=== PATIENT | female | born 1945 | race Caucasian/White ===

== ENCOUNTER → 2023-05-25 15:51 | Outpatient (REF) | payer MEDICARE, SELFPAY | LOC: RCS 15:51 | PROVIDERS: ATTENDING PHYSICIAN Internal Medicine Cardiovascular Disease; FAMILY PHYSICIAN Internal Medicine Geriatric Medicine; REFERRING PHYSICIAN Orthopaedic Surgery | DX: R60.0 Localized edema (principal) | CPT/HCPCS: 93306 ==

== ENCOUNTER 2023-06-02 06:22 | Inpatient (IN) | payer MEDICARE, SELFPAY ==
--- NOTE | 2023-05-07 10:55 | CM ---
Patient is scheduled for an elective R THR on 06/02/23. Spoke with patient prior to surgery via telephone. Patient had a L TKR (2020), L THR (2019) and a R TKR (2013), all at . Reintroduced role of Orthopedic Navigator. Patient reports that she
lives with her in a multi story home. There are two steps to enter and 17 ([id number]-19) steps to the second floor (right ascending rail). There is a powder room on the entry specialists. She currently functions independently. She has a rolling
walker, raised toilet seat with rails, hip kit, firm cushion and cane at home. She has had services through [facility] in the past. PCP is Dr. Galeana.
Discussed orthopedic program and post surgical plans. Reviewed anticipated length of stay and that goal is for her to return home at discharge. Also reviewed outpatient PT. Patient is in agreement with tentative plan and will go directly to
outpatient PT at [facility]. She will have support from her when she goes home.
Patient will complete online education.
Plan: Orthopedic Navigator will remain available to assist with the care of patient and will reassess discharge needs after surgery.
[2023-05-14 12:56] VITALS: BMI 30.1
[2023-05-14 14:29] LABS: Hematocrit 40.3 % (37.0-47.0); Hemoglobin 13.8 g/dL (12.0-16.0); Mean Corp Hgb Conc. 34.2 g/dL (33.0-37.0); Mean Corpuscular Hgb 30.7 pg (27.0-31.0); Mean Corpuscular Volume 89.8 fL (81.0-99.0); Mean Platelet Volume 9.5 fL (7.4-10.4); Platelet Count 334 10^3/uL (130-400); Red Blood Cell Count 4.49 10^6/uL (4.20-5.40); White Blood Cell Count 8.9 10^3/uL (4.8-10.8)
[2023-05-14 14:44] LABS: ALT (SGPT) 22 U/L (0-35); AST (SGOT) 26 U/L (14-36); Albumin 4.3 g/dl (3.5-5.0); Alkaline Phosphatase 103 U/L (38-126); Blood Urea Nitrogen 20 mg/dl (7-17); Calcium 9.1 mg/dl (8.4-10.2); Carbon Dioxide 26 mmol/L (22-30); Chloride 104 mmol/L (98-107); Estimated Creatinine Clearance 64 ml/min; Glucose 91 mg/dl (70-99); Sodium 135 mmol/L (135-145); Total Bilirubin 0.7 mg/dl (0.2-1.3); Total Protein 6.7 g/dl (6.3-8.2); eGFR > 60.00
[2023-05-14 15:43] VITALS: BMI 30.1
[2023-05-15 08:44] LABS: Glycohemoglobin (HgbA1c) 5.3 % (4.0-5.6)
[2023-06-02] VITALS (24 sets, daily range): BP systolic 115–150; BP diastolic 49–94; PULSE 62–63; O2SAT 98–99; BMI 30.1
[2023-06-02] MEDS: NORMOSOL-R 1000 IV ×2 (08:02→13:28)
[2023-06-02] MEDS: TYLENOL 650 MG PO ×4 (08:02→20:40)
[2023-06-02] MEDS: CELEBREX 200 MG PO (08:02)
[2023-06-02] MEDS: TORADOL 10 MG IV ×2 (12:10→23:47)
[2023-06-02] MEDS: DILAUDID 0.25 MG IV (12:43)
[2023-06-02] MEDS: ROXICODONE 5 MG PO ×2 (13:31→20:48)
--- NOTE | 2023-06-02 14:09 | PTCARENOTE ---
Patient received from PACU in bed; IVF infusing; Surgical site assessed; VSS; Patient oriented to room and unit; Bed in lowest position, wheels locked; Call louise within reach; Assessment ongoing; Safety maintained
[2023-06-02] MEDS: ZOLOFT 50 MG PO ×2 (15:19→20:40)
[2023-06-02] MEDS: ANCEF 5 IV ×2 (15:21→23:47)
[2023-06-02] MEDS: ASPIRIN 325 MG PO (17:18)
[2023-06-02] MEDS: SYMBICORT 80/4.5 MCG INHALER 2 PUFF INH (20:00)
[2023-06-02] MEDS: BACTROBAN 2% OINTMENT 1 APPLIC NASAL (20:39)
[2023-06-02] MEDS: COLACE 100 MG PO (20:39)
[2023-06-02] MEDS: SENOKOT 17.1999999999999993 MG PO (20:39)
[2023-06-02] MEDS: RYTHMOL 150 MG PO (20:40)
[2023-06-02] MEDS: NEURONTIN 300 MG PO (21:20)
[2023-06-02] MEDS: PEPCID 20 MG PO (21:20)
[2023-06-02] MEDS: DESYREL 50 MG PO (23:47)
[2023-06-03 03:30] VITALS: BP 121/56
[2023-06-03] MEDS: TYLENOL PO ×2 (04:00)
[2023-06-03 07:09] VITALS: BP 154/75
[2023-06-03] MEDS: SYMBICORT 80/4.5 MCG INHALER 2 PUFF INH (08:21)
--- NOTE | 2023-06-03 09:00 | CM ---
Reviewed chart and held rounds with PT, OT and nursing. Patient admitted as planned for elective R THR. Met with patient at bedside. Confirmed information previously obtained for assessment. Also discussed discharge plans. The plan is for patient to
return home at discharge. She will have support from her when she goes home. Patient will go directly to outpatient PT and will come to . She has an appointment scheduled for Wednesday, 06/03.
Patient has all needed DME at home.
She will use [facility] pharmacy for discharge prescriptions.
[2023-06-03] MEDS: ASPIRIN 325 MG PO (09:02)
[2023-06-03] MEDS: TYLENOL 650 MG PO ×2 (09:02→11:48)
[2023-06-03] MEDS: SENOKOT 17.1999999999999993 MG PO (09:02)
[2023-06-03] MEDS: ROXICODONE 10 MG PO (09:02)
[2023-06-03] MEDS: COLACE 100 MG PO (09:02)
[2023-06-03] MEDS: ZOLOFT 50 MG PO (09:02)
[2023-06-03] MEDS: DELTASONE 40 MG PO (09:02)
[2023-06-03] MEDS: RYTHMOL 150 MG PO (09:03)
[2023-06-03] MEDS: CELEBREX 200 MG PO (09:03)
[2023-06-03] MEDS: BACTROBAN 2% OINTMENT 1 APPLIC NASAL (09:03)
[2023-06-03 10:10] VITALS: BP 130/52; PULSE 56; O2SAT 98
--- NOTE | 2023-06-03 10:15 | W.PN.ORTHO ---
Today's Communication / Plan
-
d/c
Assessment
.
Distal Motor Intact: Yes
Dressing:
Clean, dry and intact.
Assessment:
Hx ESBL-will change OP ppx abx to Keflex due to ESBL hx coverage-spoke to iD pharmcist
Plan
.
Surgery / Date: R VIKTORIYA Lewis 06/02/23
DVT Prophylaxis: Aspirin
Activity:
Out of bed.
PT/OT
Discharge Plan: Home w/ Outpatient PT
Subjective
.
.:
Patient resting comfortably.
Vital Signs and Labs
.
Vital Signs and Labs:
Lab Results
05/14/23 13:06
05/14/23 13:06
Temp Pulse Resp BP Pulse Ox
97.3 F 82 16 154/75 99
06/03/23 07:09 06/03/23 08:45 06/03/23 08:45 06/03/23 09:01 06/03/23 08:45
Non-invasive Hgb result: 13.6
Physical Exam
-
HEENT: No pallor, cyanosis, or jaundice. Throat clear.
NECK: Supple. No JVD.
RESPIRATORY: Lungs clear to auscultation.
CVS: S1, S2 normal. RRR.� No murmur, rub or gallop.
ABDOMEN: Soft, non-tender. No distension. BS+/normal.
EXTREMITIES: strength equal, no calf pain with palpation
FIRE CHIEF'S AIDE: AOx3. No focal deficits. cement breaker grossly intact
--- NOTE | 2023-06-03 10:24 | W.DS.TRANS ---
DC Summary - Director Dermatology
-
Discharge Instructions:
Sleep Apnea Risk Low
Discharge Diagnosis/Procedures R VIKTORIYA Dr. Lewis 06/02/23
Diet As tolerated
Activity With Walker
Driving Restrictions No driving
Bathing Restrictions OK to Shower
Other Services PT
Instructions:
Stand-Alone Forms: Total Hip/Knee Replacement D/C
Changes to Home Medications: Yes
Discharge Medications:
DC Medications w/original date entered in [employer]
propafenone 150 mg tablet 150 mg PO BID Arrhythmia 02/20/20
sertraline 50 mg tablet 50 mg PO BID Mental Health/Anxiety 02/20/20
albuterol sulfate 90 mcg/actuation aerosol inhaler (ProAir HFA) 1 inh inhalation PRN PRN WHEEZING 05/07/22
cranberry extract 200 mg capsule (Ellura) 200 mg PO DAILY Supplement 05/07/22
fluticasone furoate 100 mcg-vilanterol 25 mcg/dose inhalation powder (Breo Ellipta) 1 inh inhalation DAILY Lung/Breathing Issues 05/07/22
midodrine 2.5 mg tablet 2.5 mg PO BID Blood Pressure 05/07/22
trazodone 50 mg tablet 50 - 100 mg PO HS sleep 05/07/22
hydrochlorothiazide 50 mg tablet 50 mg PO HSPRN PRN SWELLING 06/03/22
Medical Cannibas Gummy 0.5 - 1 gummy PO PRN PRN pain 05/11/23
lifitegrast 5 % eye drops in a dropperette (Xiidra) 1 drp BOTH EYES BID Eye Condition 05/11/23
vibegron 75 mg tablet (Gemtesa) 75 mg PO BID Urinary Issue 05/11/23
mupirocin 2 % topical ointment 1 applic topical BID infection prevention #1 tube 05/14/23
Saccharomyces boulardii 250 mg capsule (Florastor) 250 mg PO BID #1 cap 06/03/23
acetaminophen 325 mg capsule (Tylenol) 650 mg PO QID #2 caps 06/03/23
aspirin 325 mg tablet 325 mg PO DAILY blood clot prevention #1 tab 06/03/23
cephalexin 500 mg capsule 500 mg PO QID infection prevention #20 caps 06/03/23
dexamethasone 4 mg tablet 4 mg PO BID inflammation #6 tabs 06/03/23
docusate sodium 100 mg capsule (Colace) 100 mg PO BID stool softner #1 cap 06/03/23
gabapentin 300 mg capsule 300 mg PO HS sleep/pain #10 caps 06/03/23
magnesium hydroxide 400 mg/5 mL oral suspension (Milk of Magnesia) 30 ml PO HS PRN Constipation #1 mL 06/03/23
oxycodone 5 mg tablet 5 - 10 mg PO Q6HPRN PRN 1 tab moderate-2 tabs severe pain #30 tabs 06/03/23
sennosides 8.6 mg tablet (Senokot) 17.2 mg PO BID laxative #2 tabs 06/03/23
Home Medication Changes
cephalexin 500 mg capsule 500 mg PO QID� infection prevention #20 caps 06/03/23�
dexamethasone 4 mg tablet 4 mg PO BID inflammation #6 tabs 06/03/23�
gabapentin 300 mg capsule 300 mg PO HS sleep/pain #10 caps 06/03/23�
oxycodone 5 mg tablet 5 - 10 mg PO Q6HPRN PRN 1 tab moderate-2 tabs severe pain #30 tabs 06/03/23�
Pending Results: No
[2023-06-03] MEDS: TORADOL 10 MG IV (11:48)
== END 2023-06-03 14:49 | disposition home or self-care (01) | DRG 470 ==
LOC: 2 SOUTH 06:22
PROVIDERS: ADMITTING PHYSICIAN Orthopaedic Surgery; FAMILY PHYSICIAN Internal Medicine Geriatric Medicine
PROC: 0SR903A Replacement of Right Hip Joint with Ceramic Synthetic Substitute, Uncemented, Open Approach (ICD-10-PCS; 2023-06-02)
DX: M16.11 Unilateral primary osteoarthritis, right hip (principal); Z87.891 Personal history of nicotine dependence; I48.0 Paroxysmal atrial fibrillation
CPT/HCPCS: 36415; 73502; 80053; 83036; 85027; 87070; 94640; 97110; 97116; 97161; 97162; 97166; 97530; 97535; C1713; C1776; J1335

== ENCOUNTER → 2023-06-14 13:47 | Outpatient (REF) | payer MEDICARE, SELFPAY | LOC: RAD 13:47 | PROVIDERS: ATTENDING PHYSICIAN Physician Assistant Medical; FAMILY PHYSICIAN Internal Medicine Geriatric Medicine | DX: M79.661 Pain in right lower leg (principal) | CPT/HCPCS: 93971 ==

== ENCOUNTER 2023-06-16 12:45 | Outpatient (RCR) | payer MEDICARE, SELFPAY | END 2023-06-18 07:33 | disposition home or self-care (01) | LOC: RPT 12:45 | PROVIDERS: ATTENDING PHYSICIAN Orthopaedic Surgery; FAMILY PHYSICIAN Internal Medicine Geriatric Medicine | DX: Z47.1 Aftercare following joint replacement surgery (principal); Z96.641 Presence of right artificial hip joint; R26.89 Other abnormalities of gait and mobility | CPT/HCPCS: 97110; 97116; 97161; 97530 ==

== ENCOUNTER → 2023-07-12 07:58 | Outpatient (REF) | payer MEDICARE, SELFPAY | LOC: WOUND 07:58 | PROVIDERS: ATTENDING PHYSICIAN Surgery; FAMILY PHYSICIAN Internal Medicine Geriatric Medicine | DX: T81.31XA Disruption of external operation (surgical) wound, not elsewhere classified, initial encounter (principal); Y83.8 Other surgical procedures as the cause of abnormal reaction of the patient, or of later complication, without mention of misadventure at the time of the procedure; S71.101A Unspecified open wound, right thigh, initial encounter; X58.XXXA Exposure to other specified factors, initial encounter; R60.0 Localized edema; I10 Essential (primary) hypertension; R26.9 Unspecified abnormalities of gait and mobility; R26.89 Other abnormalities of gait and mobility; J98.4 Other disorders of lung; M16.11 Unilateral primary osteoarthritis, right hip | CPT/HCPCS: 11042; 99203 ==

== ENCOUNTER 2023-07-13 21:44 | Emergency (ER) | payer MEDICARE, SELFPAY ==
[2023-07-13 21:47] VITALS: BP 157/64
[2023-07-13 22:07] LABS: % Basophils 0.3 % (0-2); % Eosinophils 1.3 % (0-6); % Immature Granulocytes 0.3 % (0-0.5); % Lymphocytes 17.1 % (20.5-51.1); % Monocytes 6.8 % (1.7-9.3); % Neutrophils 74.2 % (42.2-75.2); Absolute Eosinophils 0.1 10^3/uL (0-0.7); Absolute Lymphocytes 1.6 10^3/uL (1.2-3.4); Absolute Monocytes 0.6 10^3/uL (0.1-0.6); Absolute Neutrophils 6.7 10^3/uL (1.4-6.5); Hematocrit 29.7 % (37.0-47.0); Hemoglobin 10.2 g/dL (12.0-16.0); Mean Corp Hgb Conc. 34.3 g/dL (33.0-37.0); Mean Corpuscular Hgb 29.7 pg (27.0-31.0); Mean Corpuscular Volume 86.6 fL (81.0-99.0); Mean Platelet Volume 8.9 fL (7.4-10.4); Nucleated Red Blood Cells % 0 %; Platelet Count 296 10^3/uL (130-400); Red Blood Cell Count 3.43 10^6/uL (4.20-5.40); Red Cell Dist. Width 13.3 % (11.5-14.5); White Blood Cell Count 9.1 10^3/uL (4.8-10.8)
[2023-07-13 22:16] LABS: Lactic Acid 0.6 mmol/L (0.7-2.0)
[2023-07-13 22:21] LABS: COVID-19 Antigen Negative (Negative)
[2023-07-13 22:24] LABS: ALT (SGPT) 12 U/L (0-35); AST (SGOT) 20 U/L (14-36); Albumin 3.7 g/dl (3.5-5.0); Alkaline Phosphatase 116 U/L (38-126); Blood Urea Nitrogen 18 mg/dl (7-17); Calcium 8.8 mg/dl (8.4-10.2); Carbon Dioxide 22 mmol/L (22-30); Chloride 107 mmol/L (98-107); Glucose 101 mg/dl (70-99); Potassium 3.9 mmol/L (3.5-5.1); Sodium 133 mmol/L (135-145); Total Bilirubin 0.5 mg/dl (0.2-1.3); Total Protein 6.1 g/dl (6.3-8.2); eGFR > 60.00
--- NOTE | 2023-07-14 00:14 | ED.GENMED ---
Addendum entered and electronically signed by Torey Swann PA-C 07/16/23 07:09:
Urine culture demonstrates greater than 100,000 colony-forming units of gram-negative bacilli. Patient on cefdinir. Sensitivities pending.
Original Note:
History of Present Illness
General
Chief Complaint: Post Operative Problem(s)
Source: patient and spouse
Exam Limitations: none
Time Seen by Provider: 07/14/23 00:02
Travel History
Have you had any contact with someone who has COVID-19?: No
Do you have any symptoms of coronavirus? Fever > 100 degrees, chills, cough, shortness of breath, sore throat, loss of taste or smell, muscle aches, or headache?: No
History of Present Illness
History of Present Illness:
77-year-old female complaining of fever and chills starting today. Low-grade fever. Some chills earlier. Had hip replacement surgery 06/02/2023. Has had an open draining wound since then. Was packed by wound care yesterday. Seen by her
orthopedist last week. No increased pain to the wound and no pain with hip rotation or weightbearing. Has a slight cough. No shortness of breath no abdominal pain no urinary symptoms.
Past History
Past History
ED Past Medical History: Arrthythmia, Cancer, HTN and Hypercholesterolemia
ED Past Surgical History: Appendectomy (gastric bypass.), Orthopedic and Other
Review of Systems
Review of Systems
All Other Systems: Not applicable
Constitutional: Reports fever and chills
Respiratory: Denies trouble breathing
Cardiac: Denies chest pain
Phy Exam
Physical Exam
Physical Exam:
GENERAL: Alert and oriented in no apparent distress
EYE: Orbits normal.
NECK: Supple
CARDIAC: Regular rate and rhythm without any obvious murmurs.
LUNGS: Clear breath sounds,normal
ABDOMEN: Soft, without focal tenderness or distention
NEUROLOGICAL: Alert and oriented , grossly non-focal
SKIN: Warm and dry, 3 cm open wound to the right lateral hip that is currently packed. No surrounding erythema. No foul-smelling drainage.
MUSCULOSKELETAL: Mild bilateral lower extremity edema. No warmth no erythema. No pain with hip rotation.
PSYCH: Normal and appropriate interaction.
Course
Orders/Labs/Results
Orders:
Orders
07/13/23 21:50
Cardiac Monitoring- Treatment ONCE
IV Insert/Care/Rem.- Treatment PRN
O2 Therapy [RESP] Urgent
Titrate/Wean O2 to maintain O2 sat greater than (%): 93
Special Instructions: TO MAINTAIN CONTINUOUS O2 SATS > OR = 93%
Pulse Ox/cont/shift [RESP] Urgent
Quantity: 1
Special Instructions: CONTINUOUS
07/13/23 21:59
C-Reactive Protein Urgent
Comment: ADD ON
COVID-19 Antigen Urgent
Source: Nasal Swab
Complete Blood Count/With Diff Urgent
Comprehensive Metabolic Panel Urgent
Erythrocyte Sed Rate Urgent
Comment: ADD ON
Lactic Acid Q4H
Comment: ON ICE, CANCEL 2ND ORDER IF FIRST LACTIC ACID LEVEL <2
Blood Culture Q30M
FEDE Source: Blood/Venous
Specimen Description:
Comment: FROM 2 SEPARATE SITES
Influenza A+B Rapid Molecular Urgent
FEDE Source: Nasal Swab
Specimen Description:
07/13/23 22:30
Blood Culture Q30M
FEDE Source: Blood/Venous
Specimen Description:
Comment: FROM 2 SEPARATE SITES
07/14/23 00:06
Wound Culture [Wound/Abscess/Other Culture] Urgent
FEDE Source: Hip
Specimen Description: Right
Date Specimen was Collected: 07/14/23
Time Specimen was Collected: 00:05
07/14/23 00:11
Add On- LAB Urgent
Tests Added?: esr,crp
CXR2 [CR Chest - 2 Views ] Urgent
Comment:
Reason For Exam: cough chills
07/14/23 00:14
CT Lower Ext W/o Iv Cont Rt Urgent
Comment:
Reason For Exam: Hip surgery/open wound/infectious symptoms
07/14/23 02:19
Urinalysis Reflex To Culture Urgent
Date Specimen was Collected: 07/14/23
Time Specimen was Collected: 02:18
Urine Microscopic Reflex Cult Urgent
Urine Culture Urgent
FEDE Source: U
Specimen Description:
Date Specimen was Collected: 07/14/23
Time Specimen was Collected: 02:18
07/14/23 02:38
CefTRIAXone [Rocephin] 1,000 mg IV NOW STA
07/14/23 02:39
CT Abd/pel Without Iv Or Oral Urgent
Comment:
Reason For Exam: UTI. History of kidney stones
07/14/23 02:41
Oxycodone/Acetaminophen [Percocet 5/325] 1 tablet PO NOW STA
Abnormal Lab Results
07/13/23 07/14/23
21:59 02:19
RBC 3.43 L 10^6/uL
(4.20-5.40)
Hgb 10.2 L g/dL
(12.0-16.0)
Hct 29.7 L %
(37.0-47.0)
Absolute Neuts (auto) 6.7 H 10^3/uL
(1.4-6.5)
Lymphocytes % 17.1 L %
(20.5-51.1)
ESR 46 H mm/hour
(0-20)
Sodium 133 L mmol/L
(135-145)
BUN 18 H mg/dl
(7-17)
Glucose 101 H mg/dl
(70-99)
Lactic Acid 0.6 L mmol/L
(0.7-2.0)
C-Reactive Protein 56.20 H mg/L
(0.0-10.00)
Total Protein 6.1 L g/dl
(6.3-8.2)
Ur Occult Blood Reflex 2+ A
(Negative)
Urine Nitrite (Reflex) Positive A
(Negative)
Leukocyte Esterase Rfl 2+ A
(Negative)
Urine WBC (Reflex) >100 A /HPF
(0-5)
Urine Bacteria (Reflex) Many A
(Negative)
07/13/23 21:59
07/13/23 21:59
Vital Signs
Initial and Last Documented VS:
Initial Vital Signs
Temp Pulse Resp BP Pulse Ox
99.8 F 78 19 157/64 97
07/13/23 21:47 07/13/23 21:47 07/13/23 21:47 07/13/23 21:47 07/13/23 21:47
Last Documented Vital Signs
Temp Pulse Resp BP Pulse Ox
98.9 F 61 18 143/59 92
07/14/23 00:30 07/14/23 04:00 07/14/23 02:20 07/14/23 04:00 07/14/23 04:00
MDM/Problems Addressed
Differential Diagnosis Includes:
New onset of infectious symptoms. Slight cough. This may be related to the hip although the wound externally actually appears well. Some slight cough. Chest x-ray ordered. COVID-negative flu negative. Urinalysis pending.
*Radiology
Radiology exam reviewed: radiology read reviewed (Nonobstructive kidney stones. Some stranding and edema lateral hip)
*Pulse Oximetry
Patient hypoxic: no
*Critical Care Note
Total Time (30-74mins, 75-104mins- exclusive of procedures): Not Applicable
Data Reviewed
Review of Other/Old Records Reveals: Labs, Records, Radiology Studies, Operative Reports and Discharge Summary
Update Note
Update Note:
CT scan discussed with radiology. The wound does not appear to probe to the joint via the CT scan. Clinically the wound appears well. She has no unusual new hip pain. Her leg pain has been ongoing and stable. She does have a positive urine.
With her history of kidney stone we will do a CT scan to rule out obstruction. Repeat temperature 98.5 if she is not obstructed she will be stable for discharge to follow-up. Orthopedics is aware of the findings
ED Attending Note
-
Portions of this chart may have been created with voice recognition software.� Occasional wrong word or��sound alike� substitutions may have occurred due to the inherent limitations of voice recognition software.
Discharge Plan
Departure
Patient Disposition: Home (Routine Discharge)
Date of Disposition: 07/14/23
Time of Disposition: 03:58
Patient with high blood pressure during this ER visit?: No
Discharge Problem:
Acute UTI, History of hip replacement, Ongoing wound dehiscence
Instructions: Urinary Tract Infection, Adult (DC), Wound Care (DC), BLOOD PRESSURE
Prescriptions:
New
cefdinir 300 mg capsule
300 mg PO BID 7 Days Qty: 14 0RF
No Action
propafenone 150 MG tablet
150 mg PO BID
sertraline 50 MG tablet
50 mg PO BID
midodrine 2.5 mg Tablet
2.5 mg PO BID
cranberry extract [Ellura] 200 mg Capsule
200 mg PO DAILY
trazodone 50 MG tablet
50 - 100 mg PO HS
fluticasone furoate-vilanterol [Breo Ellipta] 100-25 mcg/dose Blister With Device
1 inh INHALATION DAILY
hydrochlorothiazide 50 MG tablet
50 mg PO HSPRN PRN (Reason: SWELLING)
Xiidra 5 % Dropperette
1 drp BOTH EYES BID
Gemtesa 75 mg Tablet
75 mg PO BID
aspirin 325 mg tablet
325 mg PO DAILY Qty: 1 0RF
Rx Instructions:
Take with food
gabapentin 300 mg capsule
300 mg PO HS Qty: 10 0RF
oxycodone 5 mg tablet
5 - 10 mg PO Q6HPRN PRN (Reason: 1 tab moderate-2 tabs severe pain) Qty: 30 0RF
Rx Instructions:
Dx surgery
ongoing therapy
Post-op use
acetaminophen [Tylenol] 325 mg capsule
650 mg PO QID Qty: 2 0RF
Referrals:
Akbar Galeana MD [Family Provider] - Follow up in 2-3 days
Activity Restrictions/Additional Instructions:
I would still like you to have close follow-up with the orthopedic surgeon
Return sooner with increased drainage swelling redness fever or any other concerning symptoms
Interventions
Interventions:
*Risk Screen - Suicide Last Done: 07/13/23 21:47
*General Assessment Last Done: 07/13/23 21:47
*Neglect/Abuse Screening Last Done: 07/13/23 21:47
ED- Fall Risk Assessment Last Done: 07/13/23 23:59
*ED COVID-19 Vaccine History Last Done: 07/13/23 21:47
*Nursing Disposition Last Done: 07/14/23 04:15
ED-Skin Assessment Last Done: 07/13/23 23:59
Discharge Date and Time
Discharge Date/Time: 07/14/23 04:15
Print Language: SURINAMESE
[2023-07-14 00:19] VITALS: BMI 32.5
[2023-07-14 00:42] LABS: Erythrocyte Sed Rate 46 mm/hour (0-20)
[2023-07-14 00:51] VITALS: BP 140/56
[2023-07-14 01:30] VITALS: BP 144/72
[2023-07-14 02:21] VITALS: BP 131/89
[2023-07-14 02:26] LABS: Urine Albumin Negative (Neg - Trace); Urine Bilirubin Negative (Negative); Urine Character Slightly Cloudy (Clear); Urine Color Yellow; Urine Glucose Negative (Negative); Urine Ketone Negative (Negative); Urine Leukocyte 2+ (Negative); Urine Nitrite Positive (Negative); Urine Occult Blood 2+ (Negative); Urine Specific Gravity 1.015 (<1.030); Urine Urobilinogen Negative (Neg - 1+)
[2023-07-14 02:47] LABS: Urine Mucus Many; Urine Squamous Cell >30 /LPF (Few)
[2023-07-14 02:48] LABS: Urine Amorphous Seen; Urine Bacteria Many (Negative); Urine White Cell >100 /HPF (0-5)
[2023-07-14] MEDS: PERCOCET 5/325 1 TABLET PO (02:53)
[2023-07-14] MEDS: ROCEPHIN 1000 MG IV (02:53)
[2023-07-14 04:00] VITALS: BP 143/59
== END 2023-07-14 04:15 | disposition home or self-care (01) ==
LOC: EMR 21:44
PROVIDERS: EMERGENCY PHYSICIAN Emergency Medicine; FAMILY PHYSICIAN Internal Medicine Geriatric Medicine
DX: N39.0 Urinary tract infection, site not specified (principal); T81.30XA Disruption of wound, unspecified, initial encounter; Z96.641 Presence of right artificial hip joint; I10 Essential (primary) hypertension; E78.00 Pure hypercholesterolemia, unspecified
CPT/HCPCS: 99284; 96374; 71046; 73700; 74176; 80053; 81003; 81015; 83605; 85025; 85652; 86140; 87040; 87070; 87077; 87086; 87186; 87205; 87502; 87811

== ENCOUNTER → 2023-07-16 13:01 | Outpatient (REF) | payer MEDICARE, SELFPAY ==
[2023-07-16 13:57] LABS: % Basophils 0.4 % (0-2); % Eosinophils 1.8 % (0-6); % Immature Granulocytes 0.2 % (0-0.5); % Monocytes 7.3 % (1.7-9.3); % Neutrophils 75.3 % (42.2-75.2); Absolute Eosinophils 0.2 10^3/uL (0-0.7); Absolute Lymphocytes 1.2 10^3/uL (1.2-3.4); Absolute Monocytes 0.6 10^3/uL (0.1-0.6); Absolute Neutrophils 6.2 10^3/uL (1.4-6.5); Hemoglobin 9.8 g/dL (12.0-16.0); Mean Corp Hgb Conc. 31.6 g/dL (33.0-37.0); Mean Corpuscular Hgb 29.1 pg (27.0-31.0); Mean Platelet Volume 9.3 fL (7.4-10.4); Nucleated Red Blood Cells % 0 %; Platelet Count 305 10^3/uL (130-400); Red Blood Cell Count 3.37 10^6/uL (4.20-5.40); Red Cell Dist. Width 13.2 % (11.5-14.5); White Blood Cell Count 8.3 10^3/uL (4.8-10.8)
[2023-07-16 14:05] LABS: Erythrocyte Sed Rate 54 mm/hour (0-20)
[2023-07-16 14:21] LABS: ALT (SGPT) 11 U/L (0-35); AST (SGOT) 18 U/L (14-36); Albumin 3.6 g/dl (3.5-5.0); Alkaline Phosphatase 117 U/L (38-126); Blood Urea Nitrogen 19 mg/dl (7-17); Calcium 9.2 mg/dl (8.4-10.2); Carbon Dioxide 24 mmol/L (22-30); Chloride 102 mmol/L (98-107); Glucose 91 mg/dl (70-99); Potassium 4.2 mmol/L (3.5-5.1); Sodium 135 mmol/L (135-145); Total Bilirubin 0.6 mg/dl (0.2-1.3); Total Protein 6.1 g/dl (6.3-8.2); eGFR > 60.00
[2023-07-16 15:09] LABS: Body Fluid Mononuclear 36.8 %; Body Fluid Polymorphonuclear 63.2 %; Body Fluid WBC 9024 /CUMM
[2023-07-16 15:41] LABS: Body Fluid Second Tech JKH
== END ==
LOC: REG 13:01
PROVIDERS: ATTENDING PHYSICIAN Orthopaedic Surgery
DX: Z96.641 Presence of right artificial hip joint (principal)
CPT/HCPCS: 36415; 80053; 85025; 85652; 86140; 86850; 86900; 86901; 87015; 87070; 87205; 89051

== ENCOUNTER 2023-07-17 14:30 | Inpatient (IN) | payer MEDICARE, SELFPAY ==
[2023-07-17 12:19] VITALS: BP 152/58
--- NOTE | 2023-07-17 12:47 | ED.GENMED ---
History of Present Illness
General
Chief Complaint: Urinary Symptoms
Source: patient and physician
Time Seen by Provider: 07/17/23 12:35
Travel History
Have you had any contact with someone who has COVID-19?: No
Do you have any symptoms of coronavirus? Fever > 100 degrees, chills, cough, shortness of breath, sore throat, loss of taste or smell, muscle aches, or headache?: No
History of Present Illness
History of Present Illness:
77 year-old female presenting to the Emergency Department at the request of her orthopedic surgeon, Dr. Lewis, with concern for two separate infections. Patient was being treated for a urinary tract infection with a cephalosporin but urine
culture resulted with ESBL E. coli resistant to oral antibiotics but also concern for possible right hip prosthesis infection after patient is 6 weeks status post right total hip replacement. Patient had been feeling well following the surgery and
had been ready to graduate from her walker to a cane when her pain started to get suddenly worse. Her surgeon aspirated some fluid from the in office on Wednesday as well as solve the wound care center. Per orthopedic surgeon patient's initial fluid
analysis concerning for potential infection however the wound culture from wound care did show that the patient has a superficial skin infection with polymicrobial growth. Patient denies any fevers, chills, rigors. She states she is still able to
ambulate however does so with significant pain. She has been taking oxycodone with minimal relief.
Past History
Past History
ED Past Medical History: Arrthythmia, Cancer, HTN and Hypercholesterolemia
ED Past Surgical History: Appendectomy (gastric bypass.), Orthopedic and Other
Social History
Tobacco: Non-smoker
Alcohol: None
Drug: None
Personal:
Living: with family
Review of Systems
Review of Systems
All Other Systems: ROS reviewed and negative except as documented in HPI and ROS
Phy Exam
Physical Exam
Physical Exam:
GENERAL: Alert , in no apparent distress
EYE: conjunctiva clear
Head: Normocephalic atraumatic
NECK: Supple,
ENT: mmm.
LUNGS: no acute respiratory distress
NEUROLOGICAL: Alert and oriented
SKIN: Warm and dry, moderate sized area of erythema overlying the right lateral hip with increased warmth and tenderness, no purulent drainage
MUSCULOSKELETAL: well perfused.
PSYCH: Normal and appropriate interaction.
Scores
Heart Failure Risk
Heart Failure Risk Score: Not Applicable
Heart Score for Chest Pain Patients
STEMI patient?: Not applicable
Withdrawal Assessment of Alcohol
Withdrawal Assessment Completed?: Not applicable
Course
Orders/Labs/Results
Orders:
Orders
07/17/23 12:36
Urinalysis Reflex To Culture Urgent
CR Hip - RT w/wo Pel 2-3 Vw* Urgent
Comment:
Reason For Exam: right hip pain, s/p prosthesis
Include a pelvis x-ray?: Yes
07/17/23 12:43
INFECTIOUS DISEASE CONSULT Urgent
Consulting Provider: Jocelyn Ariza
Was physician already notified: Yes
07/17/23 12:52
Meropenem [Merrem] 500 mg IV NOW STA
07/17/23 13:15
CRP [C-Reactive Protein] Urgent
Complete Blood Count/With Diff Urgent
Comprehensive Metabolic Panel Urgent
ESR [Erythrocyte Sed Rate] Urgent
Lactic Acid Q4H
Comment: CANCEL 2nd LACTIC ACID IF 1st LACTIC ACID IS LESS THAN 2
PTT Urgent
Prothrombin Time Urgent
Blood Culture Q30M
FEDE Source: Blood/Venous
Specimen Description:
Blood Culture Q30M
FEDE Source: Blood/Venous
Specimen Description:
07/17/23 13:19
HYDROmorphone [Dilaudid] 1 mg IV NOW STA
07/17/23 13:49
Sterile Water [Sterile Water For Injection] 10 ml .ROUTE .STK-MED ONE
07/17/23 14:03
Admit/Transfer Patient As Directed
Co-Sign Provider:
Level of Care: Inpatient admission
Assign to:: Medical/Surgical
Physician / Group: Hospitalist
Diagnosis: resistant UTI, inflammatory arthritis of right hip
Reason for Hospitalization: IV antibiotics
Expected length of stay greater than two midnights?: Yes
ELOS- Estimated Length of Stay in days: 2
I certify the patient meets the requirements for IP care: Yes
07/17/23 14:06
Code Status As Directed
Resuscitation Status: Full Code
07/17/23 16:45
Lactic Acid Q4H
Comment: CANCEL 2nd LACTIC ACID IF 1st LACTIC ACID IS LESS THAN 2
Abnormal Lab Results
07/17/23
13:15
RBC 3.58 L 10^6/uL
(4.20-5.40)
Hgb 10.4 L g/dL
(12.0-16.0)
Hct 31.6 L %
(37.0-47.0)
MCHC 32.9 L g/dL
(33.0-37.0)
Abs Immat Gran (auto) 0.2 H 10^3/uL
(0-0.05)
Absolute Neuts (auto) 6.6 H 10^3/uL
(1.4-6.5)
Absolute Lymphs (auto) 1.1 L 10^3/uL
(1.2-3.4)
Immature Gran % 1.7 H %
(0-0.5)
Neutrophils % 77.5 H %
(42.2-75.2)
Lymphocytes % 12.8 L %
(20.5-51.1)
ESR 59 H mm/hour
(0-20)
APTT 36.4 H Sec
(23.4-35.0)
Sodium 132 L mmol/L
(135-145)
Glucose 102 H mg/dl
(70-99)
C-Reactive Protein 195.30 H mg/L
(0.0-10.00)
07/17/23 13:15
07/17/23 13:15
Vital Signs
Initial and Last Documented VS:
Initial Vital Signs
Temp Pulse Resp BP Pulse Ox
98.7 F 64 18 152/58 97
07/17/23 12:19 07/17/23 12:19 07/17/23 12:19 07/17/23 12:19 07/17/23 12:19
Last Documented Vital Signs
Temp Pulse Resp BP Pulse Ox
98.7 F 64 18 152/58 97
07/17/23 12:19 07/17/23 12:19 07/17/23 12:19 07/17/23 12:19 07/17/23 12:19
MDM/Problems Addressed
Differential Diagnosis Includes:
Multidrug-resistant urinary tract infection, septic arthritis, superficial cellulitis, patient not showing outward signs of sepsis at this time
MDM/Problems Addressed:
77-year-old female presenting emergency department for evaluation ultimately admission for multidrug-resistant urinary tract infection combined with what appears to be a superficial cellulitis/concern for septic joint. Patient has been taking
cephalosporin but with no relief of her UTI. She does note a history of previous UTIs has not had one in 3 to 4 years. Will notify Ortho, infectious disease and hospitalist team. I reviewed patient's culture reports which shows meropenem is
sensitive to all 3 organisms. Plan to admit
*Pulse Oximetry
Patient hypoxic: no
*Critical Care Note
Total Time (30-74mins, 75-104mins- exclusive of procedures): Not Applicable
Data Reviewed
Review of Other/Old Records Reveals: Labs and Records
Source: patient
Patient Management
Discussion with other providers: Hospitalist and Kitchen Worker
Escalation/DeEscalation of care consider admission/obs:
Infectious disease agrees with plan for Merrem 500 mg every 6 hours. Orthopedics is asking inflammatory markers to be drawn. Hospitalist team accepts for continued evaluation
ED Attending Note
-
Portions of this chart may have been created with voice recognition software.� Occasional wrong word or��sound alike� substitutions may have occurred due to the inherent limitations of voice recognition software.
Discharge Plan
Departure
Patient Disposition: Admit
Date of Disposition: 07/17/23
Time of Disposition: 12:47
Presentation/result/management discussed w/ accepting MD/DO: Hospitalist
Discharge Problem:
Urinary tract infection due to extended-spectrum beta lactamase (ESBL) producing Escherichia coli, Infected prosthesis of right hip
Interventions
Interventions:
*Risk Screen - Suicide Last Done: 07/17/23 14:00
*General Assessment Last Done: 07/17/23 14:00
*Neglect/Abuse Screening Last Done: 07/17/23 14:00
ED- Fall Risk Assessment Last Done: 07/17/23 14:00
*ED COVID-19 Vaccine History Last Done: 07/17/23 12:20
ED-Female Genitourinary Assessment Last Done: 07/17/23 14:00
[2023-07-17 13:24] LABS: % Basophils 0.2 % (0-2); % Eosinophils 0.3 % (0-6); % Immature Granulocytes 1.7 % (0-0.5); % Lymphocytes 12.8 % (20.5-51.1); % Monocytes 7.5 % (1.7-9.3); % Neutrophils 77.5 % (42.2-75.2); Absolute Immature Granulocytes 0.2 10^3/uL (0-0.05); Absolute Lymphocytes 1.1 10^3/uL (1.2-3.4); Absolute Monocytes 0.6 10^3/uL (0.1-0.6); Absolute Neutrophils 6.6 10^3/uL (1.4-6.5); Hematocrit 31.6 % (37.0-47.0); Hemoglobin 10.4 g/dL (12.0-16.0); Mean Corp Hgb Conc. 32.9 g/dL (33.0-37.0); Mean Corpuscular Hgb 29.1 pg (27.0-31.0); Mean Corpuscular Volume 88.3 fL (81.0-99.0); Mean Platelet Volume 8.9 fL (7.4-10.4); Nucleated Red Blood Cells % 0 %; Platelet Count 336 10^3/uL (130-400); Red Blood Cell Count 3.58 10^6/uL (4.20-5.40); Red Cell Dist. Width 13.2 % (11.5-14.5); White Blood Cell Count 8.6 10^3/uL (4.8-10.8)
[2023-07-17] MEDS: DILAUDID 1 MG IV ×2 (13:31→17:15)
[2023-07-17 13:36] LABS: INR 1.12; PT 14.2 Sec (11.4-14.6)
[2023-07-17 13:37] LABS: APTT 36.4 Sec (23.4-35.0)
--- NOTE | 2023-07-17 13:40 | HPS.HSE ---
Family Physician
-
Family Physician: Akbar Galeana
Chief Complaint
-
Right hip pain, UTI
History of Present Illness
This is a 77-year-old female with past medical history that is for hypertension, paroxysmal atrial fibrillation, osteoarthritis, chronic anemia, recurrent urinary tract infections who presents to the emergency department from orthopedic
clinic for a worsening right hip pain after 6 weeks status post right total hip arthroplasty.
Generally the pain has been improving since her surgery up until about Wednesday. Prior to Wednesday she did note that the wound was not healing properly and appeared to have been growing for some time the noticeably 7.5 cm tract at the wound care
clinic on Wednesday. They also did some debridement on Wednesday and sent tissue for cultures. On Wednesday the patient reported that she had worsening of the hip pain. She was able to ambulate with a walker and only using 1 prior to that but has not
been able to ambulate as well since then. He says she noticed some chills on Wednesday. She also reports that she started having urinary frequency without dysuria or hematuria. He denied having flank pain. She had no nausea was seen in the ED and
had a workup which was positive for a UTI. She was started on IV cephalosporin and sent home on oral cefdinir. Patient reports that she does have lower urinary tract symptoms and is status post stimulator. She was seen the following day at an
orthopedic clinic. She was noted to have swelling and redness around the hip and had a removed of yellow-colored fluid. There is no growth to date however the fluid 9000 WBCs which was reported to be not particularly impressive. However there is
concern for hematogenous seeding given that the UTI was not sensitive to cefdinir.
The ED today the patient was afebrile. Blood pressure was 150/60, pulse was 64 and she was in no acute distress. There was no leukocytosis, was stable at 10.4 with normal platelet count. ESR was 54. INR was 1.12. Chemistries with otherwise
unremarkable with a sodium of 132 and a normal BUN/creatinine. CT of the abdomen pelvis as well as the right lower extremity showed nonobstructive nephrolithiasis and nonobstructive bilateral urolithiasis. There is subcutaneous fat stranding in
the right hip concerning for infection or postoperative changes.
Medical History
Past Medical History
Past Medical History: Reports Arrhythmia and HTN
Past Surgical History: Reports Orthopedic (s/p R VIKTORIYA)
Social History
Tobacco: Non-smoker
Alcohol: None
Drug: None
Personal:
Living: With Family
Employment: Retired
Family History
Family History: Not pertinent
Allergies / Home Medications
Allergies reflects when Allergies were last updated in [employer].
Home Medications with original date entered in [employer]
Allergy/Medication List:
Allergies
Allergy/AdvReac Type Severity Reaction Status Date / Time
levofloxacin [From Levaquin] Allergy Joint Verified 07/17/23 12:22
swelling/tenderness
Home Medications
propafenone 150 mg tablet 150 mg PO BID Arrhythmia 02/20/20
sertraline 50 mg tablet 50 mg PO BID Mental Health/Anxiety 02/20/20
cranberry extract 200 mg capsule (Ellura) 200 mg PO DAILY Supplement 05/07/22
fluticasone furoate 100 mcg-vilanterol 25 mcg/dose inhalation powder (Breo Ellipta) 1 inh inhalation DAILY Lung/Breathing Issues 05/07/22
midodrine 2.5 mg tablet 2.5 mg PO BID Blood Pressure 05/07/22
trazodone 50 mg tablet 50 - 100 mg PO HS sleep 05/07/22
hydrochlorothiazide 50 mg tablet 50 mg PO HSPRN PRN SWELLING 06/03/22
lifitegrast 5 % eye drops in a dropperette (Xiidra) 1 drp BOTH EYES BID Eye Condition 05/11/23
vibegron 75 mg tablet (Gemtesa) 75 mg PO BID Urinary Issue 05/11/23
acetaminophen 325 mg capsule (Tylenol) 650 mg (2 x 325 mg) PO QID #2 caps 06/03/23
aspirin 325 mg tablet 325 mg PO DAILY blood clot prevention #1 tab 06/03/23
gabapentin 300 mg capsule 300 mg PO HS sleep/pain #10 caps 06/03/23
oxycodone 5 mg tablet 5 - 10 mg (1 - 2 x 5 mg) PO Q6HPRN PRN 1 tab moderate-2 tabs severe pain #30 tabs 06/03/23
cefdinir 300 mg capsule 300 mg PO BID 7 days #14 caps 07/14/23
Review of Systems
-
History Source: Patient and Family
Constitutional: Reports Chills
EENT: Reports No Symptoms
Respiratory: Reports No Symptoms
Cardiac: Reports No Symptoms
Abdomen/GI: Reports No Symptoms
: Reports Frequency
Musculoskeletal: Reports Joint Pain, Joint Swelling and Edema
Skin: Reports No Symptoms
Neurological: Reports No Symptoms
Endocrine: Reports No Symptoms
Hematologic/Lymphatic: Reports No Symptoms
Psych: Reports No Symptoms
Physical Exam
Vital Signs
Vital Signs
Temp Pulse Resp BP Pulse Ox
98.7 F 64 18 152/58 97
07/17/23 12:19 07/17/23 12:19 07/17/23 12:19 07/17/23 12:19 07/17/23 12:19
Physical Exam
General: Well Developed, Well Nourished and Conversant
HEENT: NormoCephalic, Anicteric, Moist mucous membranes, Atraumatic, PERRLA and [place] Conjunctivae
Respiratory: Clear
Cardiac: S1/S2 and Regular Rhythm
Breast: Deferred by me
GI: Soft, Non Tender, Non Distended and Normal Bowel Sounds
Rectal: Deferred by Provider
Genito-urinary: Deferred by me
Musculoskeletal: No Clubbing, No Cyanosis, Edema, Left Lower Extremity and Edema, Right Lower Extremity
Skin: Warm and Lesions
Neuro: AO x 3
Hematologic/Lymphatic: No Lymphadenopathy
Psych: Calm
Laboratory Results
-
07/17/23 13:15
Laboratory Results
PT 14.2 Sec (11.4-14.6) 07/17/23 13:15
INR 1.12 07/17/23 13:15
APTT 36.4 Sec (23.4-35.0) H 07/17/23 13:15
Data Reviewed
-
CT Scan: Report Reviewed by me
Lab Data: Labs Reviewed by me and Discussed with Physician
Old Records: Reviewed
Impression/Plan
-
IMPRESSION:
77 y.o who is 6 weeks s/p R VIKTORIYA, has history of recurrent UTI, HTN, anemia and pAF not anticoagulated who comes in from ortho clinic in the setting of worsening right hip pain/tenderness and swelling s/p athrocentesis yesterday that was equivocal
for an infection but with negative cultures to date. She was started on oral antibiotics for a UTI 4 days ago which was prior to the hip arthrocentesis and is now found to have ESBL Klebsiella on cultures of the urine. She remains mildly
symptomatic with urinary frequency. No obvious complications in terms of obstructing stones. No pyelo on CT scan or exam.
PLAN:
1. UTI - ESBL Klebsiella. No pyelo but urinary symptoms remain with concern for hematogenous seeding of right hip / prosthesis.
- admit to general medical floor
- blood cultures sent
- meropenem per ID, ID consulted
2. R hip arthroplasty with pain and swelling - Improvement in hip pain until 5 days ago with more swelling and tenderness concerning for infection. Synovial fluid is equivocal for infectious arthritis, no growth till date (24 hours). Local wound
culture with gm negative polymicrobial growth. CT of the hip with possible soft tissue infection. Exam is NOT remarkable for cellulitis or fasciitis. Patient is hemodynamically stable.
- meropenem as above
- crp markedly elevated,
- check mrsa, if positive add vancomycin since fluid culture is showing no growth yet
- ortho consult, ID consult
- npo after midnight for possible revision in am
- pain control
- pt eval
3. Wound - Polymicrobial wound culture on debridement 5 days ago. Possibly urinary contamination. No fasciitis on exam but deep tract noted.
- continue abx as above
- wound care consultation
4. Bilateral LE swelling - Swelling since surgery. Negative RLE u/s.
- check left LE u/s
5. pAFIB - Normal sinus currently. No AC, on aspirin 325mg daily.
- no AC
- continue propafenone
- dvt ppx with lovenox
- holding aspirin
6. Mild hyponatremia - Appears euvolemic on exam. On HCTZ and sertraline. No indication for acute treatment yet
- monitor on repeat labs.
DVT PPX
Full Code
[2023-07-17 13:41] LABS: ALT (SGPT) 12 U/L (0-35); AST (SGOT) 21 U/L (14-36); Albumin 4.2 g/dl (3.5-5.0); Alkaline Phosphatase 119 U/L (38-126); Blood Urea Nitrogen 16 mg/dl (7-17); Calcium 9.4 mg/dl (8.4-10.2); Carbon Dioxide 25 mmol/L (22-30); Chloride 99 mmol/L (98-107); Glucose 102 mg/dl (70-99); Potassium 3.9 mmol/L (3.5-5.1); Sodium 132 mmol/L (135-145); Total Bilirubin 0.8 mg/dl (0.2-1.3); Total Protein 6.8 g/dl (6.3-8.2); eGFR > 60.00
[2023-07-17 13:45] LABS: Erythrocyte Sed Rate 59 mm/hour (0-20)
[2023-07-17 13:49] LABS: Lactic Acid 0.9 mmol/L (0.7-2.0)
[2023-07-17] MEDS: MERREM 500 MG IV ×2 (13:54→20:44)
--- NOTE | 2023-07-17 17:10 | CON.ID ---
Consultation
-
Date/Time Consultation Requested: 07/17/23 12:43
Date/Time Consultation Performed: 07/17/23 15:22
Requesting Provider: Dr Lewis
Performing Provider: Dr Ariza
Reason for Consultation: early PJI
Chief Complaint / Past History
Chief Complaint
right hip pain, UTI
History of Present Illness
Ms King is a 77 year old female who underwent elective right total hip replacement 06/02/23 subsequently developing worsening right hip pain since about wednesday, when she noticed dehiscence of the surgical site, chills, and new dysuria and urgency.
She was seen in the ER and superficial wound culture taken growing proteus, pseudomonas, diphteroid; urine culture sent and she was prescribed cefdinir. went ot orthopedic clinic, redness, swelling of the surgical site noted, arthro
centesis done 9K WBC and 60% PMS, gram stain negative, no growth on culture thus far, the 07/13 urine culture later resulted with ESBL K pneumoniae.
Past History
Additional Past Medical History:
Arrhythmia and HTN
Additional Past Surgical History:
R hip VIKTORIYA
Allergy History:
levofloxacin [From Levaquin] Allergy (Verified 07/17/23 12:22)
Joint swelling/tenderness
Medications Reviewed: Yes
Social History
Tobacco: Non-Smoker
Alcohol: None
Drug: None
Family History
Family History: Not Pertinent
Review of Systems
Review of Systems
General: Negative Fever or Chills
All systems: All other systems were reviewed and were negative
Vital Signs
Temp Pulse Resp BP Pulse Ox
98.7 F 64 18 152/58 97
07/17/23 12:19 07/17/23 12:19 07/17/23 12:19 07/17/23 12:19 07/17/23 12:19
Physical Exam
Physical Exam
Constitutional: No Acute Distress
Cardiovascular: Regular Rate and S1/S2; Negative Murmur or Rub
Pulmonary: Clear and Symmetric; Negative Wheezes, Rales or Rhonchi
Gastrointestinal: Soft, Non Tender, Non Distended and Normal Bowel Sounds
Skin: Warm and Dry; Negative Rash or Jaundice
Wound: Other (R hip surgical site with dehiscence probes 7 cm deep in one dimension - not to any firm surface but remarkably deep; wound is purulent with surrounding erythema)
Lab / Diagnostic Study Results
07/17/23 13:15
07/17/23 13:15
Abs Immat Gran (auto) 0.2 10^3/uL (0-0.05) H 07/17/23 13:15
Absolute Neuts (auto) 6.6 10^3/uL (1.4-6.5) H 07/17/23 13:15
Absolute Lymphs (auto) 1.1 10^3/uL (1.2-3.4) L 07/17/23 13:15
Absolute Monos (auto) 0.6 10^3/uL (0.1-0.6) 07/17/23 13:15
Absolute Basos (auto) 0.0 10^3/uL (0-0.2) 07/17/23 13:15
Immature Gran % 1.7 % (0-0.5) H 07/17/23 13:15
Neutrophils % 77.5 % (42.2-75.2) H 07/17/23 13:15
Lymphocytes % 12.8 % (20.5-51.1) L 07/17/23 13:15
Monocytes % 7.5 % (1.7-9.3) 07/17/23 13:15
Eosinophils % 0.3 % (0-6) 07/17/23 13:15
Basophils % 0.2 % (0-2) 07/17/23 13:15
ESR 59 mm/hour (0-20) H 07/17/23 13:15
PT 14.2 Sec (11.4-14.6) 07/17/23 13:15
INR 1.12 07/17/23 13:15
Lactic Acid 0.9 mmol/L (0.7-2.0) 07/17/23 13:15
C-Reactive Protein 195.30 mg/L (0.0-10.00) H 07/17/23 13:15
Microbiology Results
Micro:
07/17/23 13:15 Blood Culture - Pending
Blood/Venous
07/17/23 13:15 Blood Culture - Pending
Blood/Venous
Assessment / Plan
Surgical Site Infection
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
- blood cultures no growth to date
- while the PJ is not yet definitively infected based on arthrocentesis, I have concerns that given the amount of purulent material and depth of the wound that it may become secondarily infected within a short time frame such as days. It may well
be prudent to consider removal - will defer final decision to her surgical team.
- wound culture from the ER notable for proteus, pseudomans (both relatively sensitive) and moderate diptheroids; the urine is notable for an EBSL Kleb pneumoniae - a third isolate
- agree with meropenem
- added vancomycin for the diptheroid
- would send cultures aerobic and anaerobic from the OR if she is taken
- likely for 6 weeks of IV antibiotics
Care Review
Plan reviewed with: Physician (Dr Lewis - [facility])
--- NOTE | 2023-07-17 17:10 | W.PN.UPDATE ---
Update Note
Progress Note Update
Pt seen and examined,
Briefly,
known to me for VIKTORIYA 6 weeks ago. She developed a superficial wound being treated w. wound care center. it did not appear to track deep and she had no s/s of PJI. On wednesday she deveoped UTI symptoms and came to ER, UTI confirmed by labs, placed
on ceftinidir. hip felt best since surgery, walking normally. Wednesday severe right hip pain and came to my office. I nurys fluid from hip and sent inflam labs. CRP and sed increased at 50 and 130. Today hip pain worse and sensitivity
came back from wednesday's urine showing it was resistent to ceftinidir. Hip fluid from yesterday showed 9000 wbc and culture today is so far neg.
I examined pt, she has moderate pain w. log roll RLE, she is nontoxic appearing. Her wound is packed w. no active drainage.
Given she had minimal pain now sudden pain subsequent to UTI for which only in retrospect do we know abx were not effective I am very suspicious of PJI. Culture of hip fluid will not be reliable due to abx given for UTI.
I met w. patient and for 1 hr to discuss all of these complexities and discuss options. Could observe and await existing cultures, reaspirate or proceed w. revision. Nexgen sequencing would be a great help but not currently available at
and I am not sure there would be fluid to aspirate since I sent entirety of hip fluid I could get during yesterday's aspiration. Pt, her and I all agreed to proceed w. right hip revision tomorrow am. I will place abx impregnated
VIKTORIYA. her hx of resistant bacteria species does somewhat complicate things but I think vanc/tobra will be acceptable.
[2023-07-17 17:18] VITALS: BP 140/51
[2023-07-17 17:20] VITALS: BMI 33.0
--- NOTE | 2023-07-17 18:00 | PTCARENOTE ---
Received patient from ED into room 2139. Patient AAOx3, VSS, x2 assist with RW to stand and pivot from stretcher to bed. Patient with R hip dressing placed in ED; wound packing intact and assessed by this RN, 4x4 gauze with scant purulent drainage,
dressing replaced over wound. Patient and spouse oriented to room and call luoise, patient states pain in R hip decreased from a 10/10 to 5/10 s/p IV dilaudid in ED. Regular diet order entered; patient NPO at midnight for possible R hip revision in
AM. Patient states no concerns at this time.
[2023-07-17 18:07] VITALS: BP 145/54; BMI 32.3
[2023-07-17 18:10] VITALS: BMI 32.3
[2023-07-17] MEDS: LOVENOX 40 MG SC (18:28)
[2023-07-17] MEDS: NORMOSOL-R 1000 IV (18:28)
[2023-07-17] MEDS: VANCOCIN 540 MG IV (18:51)
--- NOTE | 2023-07-17 18:58 | PHA.VAN.IN ---
Assessment
- Assessment
Renal Function: Appears similar to baseline
Concomitant Antimicrobials: MEROPENEM
AUC Dosing Plan
- Dosing Variables
Dosing Weight (kg): 71
Dosing CrCl (ml/min): 90
Vd coefficient (L/kg): 0.7
DOSING ON ADJUSTED BODY WEIGHT CONSIDERING BMI >30
- Empiric Dosing
Initial / Loading Dose: VANCO 2000MG X1
Maintenance Regimen: VANCO 1000MG Q12H
Estimated AUC (mcg*h/mL): 539
Estimated Peak (mcg*h/mL): 32.8
Estimated Trough (mcg/ml): 14.3
Estimated Half Life (H): 8.8
- Monitoring
No levels ordered at this time: CONSIDER LEVEL PRIOR TO 4TH MAINTENANCE DOSE
Pharmacokinetics Vancomycin I
- -
Patient Age: 77
Patient Sex: Female
Vancomycin Day #: 1
Indication: Bone And Joint
Requesting Provider: DR. MCRAE
Pertinent Antimicrobial Allergies:
LEVOFLOXACIN (JOINT SWELLING/TENDERNESS)
Height / Weight:
Height 5 ft 6 in
Actual Weight 90.718 kg
Adjusted BW in k.8
Pertinent Past Medical History: 6 WEEKS S/P RIGHT TOTAL HIP ARTHROPLASTY, RECURRENT UTI
- Vital Signs / Lab Results
Temp Pulse Resp BP Pulse Ox
99.5 F 60 16 145/54 95
07/17/23 18:07 07/17/23 18:07 07/17/23 18:07 07/17/23 18:07 07/17/23 18:07
Lab Results - Hematology
07/17/23
13:15
WBC 8.6
Lab Results - Chemistry
07/17/23
13:15
BUN 16
Creatinine 0.6
Albumin 4.2
07/17/23 07/17/23
13:15 16:45
Lactic Acid 0.9 Cancelled
[2023-07-17 19:46] LABS: Urine Albumin Negative (Neg - Trace); Urine Bilirubin Negative (Negative); Urine Character Clear (Clear); Urine Color Yellow; Urine Glucose Negative (Negative); Urine Ketone Trace (Negative); Urine Leukocyte 1+ (Negative); Urine Nitrite Positive (Negative); Urine Occult Blood Negative (Negative); Urine Specific Gravity 1.015 (<1.030); Urine Urobilinogen Negative (Neg - 1+)
[2023-07-17 19:53] LABS: Urine Squamous Cell 16-20 /LPF (Few)
[2023-07-17 19:54] LABS: Urine Bacteria Few (Negative); Urine Red Blood Cell None Seen /HPF (0-2); Urine White Cell 30-40 /HPF (0-5)
[2023-07-17] MEDS: ROXICODONE 5 MG PO (20:41)
[2023-07-17] MEDS: ZOLOFT 50 MG PO (20:42)
[2023-07-17] MEDS: ProAmatine 2.5 MG PO (20:43)
[2023-07-17] MEDS: STERILE WATER FOR INJECTION 10 ML IV (20:44)
[2023-07-17] MEDS: SYMBICORT 80/4.5 MCG INHALER 2 PUFF INH (20:49)
[2023-07-17] MEDS: RYTHMOL 150 MG PO (21:47)
[2023-07-17] MEDS: MORPHINE SULFATE 2 MG IV (22:25)
[2023-07-17] MEDS: NEURONTIN 300 MG PO (22:49)
[2023-07-17] MEDS: DESYREL 50 MG PO (22:50)
[2023-07-17 23:19] VITALS: BP 112/67
[2023-07-18] VITALS (15 sets, daily range): BP systolic 118–147; BP diastolic 45–69; PULSE 62–72; O2SAT 93–95
[2023-07-18] MEDS: MERREM 500 MG IV ×4 (01:17→20:26)
[2023-07-18] MEDS: STERILE WATER FOR INJECTION 10 ML IV ×4 (01:18→20:27)
[2023-07-18] MEDS: VANCOCIN 200 IV ×2 (05:36→17:28)
[2023-07-18] MEDS: ANCEF 10 IV (05:55)
[2023-07-18] MEDS: SYMBICORT 80/4.5 MCG INHALER 2 PUFF INH ×2 (07:30→20:00)
[2023-07-18] MEDS: ProAmatine 2.5 MG PO ×2 (07:33→20:24)
[2023-07-18] MEDS: RYTHMOL 150 MG PO ×2 (07:33→20:25)
[2023-07-18] MEDS: ZOLOFT 50 MG PO ×2 (07:33→20:23)
[2023-07-18] MEDS: MIRALAX 17 GRAMS PO ×2 (07:47→20:25)
[2023-07-18] MEDS: TYLENOL 1000 MG PO ×3 (07:47→22:09)
[2023-07-18] MEDS: NORMOSOL-R 1000 IV (07:49)
[2023-07-18] MEDS: DILAUDID 0.5 MG IV (11:35)
[2023-07-18 11:44] LABS: Hematocrit 27.3 % (37.0-47.0); Hemoglobin 8.9 g/dL (12.0-16.0); Mean Corp Hgb Conc. 32.6 g/dL (33.0-37.0); Mean Corpuscular Hgb 29.2 pg (27.0-31.0); Mean Corpuscular Volume 89.5 fL (81.0-99.0); Red Blood Cell Count 3.05 10^6/uL (4.20-5.40); Red Cell Dist. Width 13.3 % (11.5-14.5); White Blood Cell Count 12.2 10^3/uL (4.8-10.8)
--- NOTE | 2023-07-18 11:53 | PTCARENOTE ---
Received patient from PACU s/p R hip revision. VSS, patient AAOx3, drowsy but able to make needs known. Normosol-R infusing through R wrist IV at 80 ml/hr, PRN 0.5 mg IV dilaudid given for R hip pain rated 9/10. R hip dressing intact, ice pack in
place, neurovascular checks to B/L LEs within normal limits. Regular diet order re-entered per ortho.
[2023-07-18 11:59] LABS: Blood Urea Nitrogen 12 mg/dl (7-17); Calcium 8.1 mg/dl (8.4-10.2); Carbon Dioxide 25 mmol/L (22-30); Chloride 102 mmol/L (98-107); Estimated Creatinine Clearance 90 ml/min; Glucose 117 mg/dl (70-99); Sodium 132 mmol/L (135-145); eGFR > 60.00
[2023-07-18 12:21] LABS: Platelet Count 264 10^3/uL (130-400)
--- NOTE | 2023-07-18 12:24 | PHA.VAN.FU ---
Vancomycin Assessment / Plan
- Assessment
Renal Function: SCR Decreasing (0.6>0.5)
WBC's are: Trending Up (8.6>12.2)
In the past 24 hrs, patient has been: Afebrile
Concomitant Antimicrobials: Meropenem
- Dosing Plan
Continue: Vancomycin 1000mg IV Q12hrs
- Monitoring Plan
No level(s) ordered at this time: Will order levels according to vancomycin dosing protocol
- Follow Up
Pharmacy will continue to follow.
Vancomycin Follow UP
- -
Patient Age: 77
Patient Sex: Female
Vancomycin Day #: 2
Indication: Bone And Joint
Requesting Provider: DR. MCRAE
Pertinent Antimicrobial Allergies:
LEVOFLOXACIN (JOINT SWELLING/TENDERNESS)
Height / Weight:
Height 5 ft 6 in
Actual Weight 90.718 kg
IBW in k.3
Adjusted BW in k.8
Pertinent Past Medical History: 6 WEEKS S/P RIGHT TOTAL HIP ARTHROPLASTY, RECURRENT UTI
- Vital Signs / Lab Results
Temp Pulse Resp BP Pulse Ox
97.5 F 60 14 128/59 96
07/18/23 11:27 07/18/23 11:27 07/18/23 11:27 07/18/23 11:27 07/18/23 12:19
Lab Results - Hematology
07/17/23 07/18/23
13:15 11:31
WBC 8.6 12.2 H
Lab Results - Chemistry
07/17/23 07/18/23
13:15 11:31
BUN 16 12
Creatinine 0.6 0.5 L
Estimated Creat Clear 90
Albumin 4.2
07/17/23 07/17/23
13:15 16:45
Lactic Acid 0.9 Cancelled
Lab Results - Urine
07/17/23
19:05
Urine Nitrite (Reflex) Positive A
Leukocyte Esterase Rfl 1+ A
Ur Squamous Epith Cells 16-20
Microbiology Results
07/17/23 18:02 Nasal Screen MRSA (PCR) - Final
Nose
[2023-07-18] MEDS: ZOFRAN 4 MG IV ×2 (13:08→20:28)
--- NOTE | 2023-07-18 13:35 | W.PN.HOSP.TC ---
Today's Communication/Plan
-
see bold
Assessment / Plan
Assessment / Plan
77 y.o who is 6 weeks s/p R VIKTORIYA, has history of recurrent UTI, HTN, anemia and pAF not anticoagulated who comes in from ortho clinic in the setting of worsening right hip pain/tenderness and swelling s/p athrocentesis yesterday that was equivocal
for an infection but with negative cultures to date. She was started on oral antibiotics for a UTI 4 days ago which was prior to the hip arthrocentesis and is now found to have ESBL Klebsiella on cultures of the urine. She remains mildly
symptomatic with urinary frequency. No obvious complications in terms of obstructing stones. No pyelo on CT scan or exam.
A/P:
1. UTI - ESBL Klebsiella
No pyelo but urinary symptoms remain with concern for hematogenous seeding of right hip / prosthesis
Appreciate ID input, continue Merrem D2, follow-up on blood/urine cultures
2. 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
Status post right VIKTORIYA 6 weeks ago
Appreciate ID & orthopedic surgery input, status post right hip revision 07/17
Continue Merrem/Vanco D2, follow-up on cultures
Consult wound care
3. Paroxysmal atrial fibrillation
Status post PVI
Currently in normal sinus rhythm
Not on anticoagulation due to history of GI bleed
Rate controlled without any beta-blockers
4. Bilateral LE swelling - Swelling since surgery. Negative RLE u/s.
Check left lower extremity ultrasound
5. Hyponatremia
Sodium 132, she is on SSRI and hydrochlorothiazide prn outpatient
Mild, monitor
6. History of orthostatic hypotension
Continue midodrine 2.5 mg twice a day
7. History of breast cancer status post radiation
8. History of lung cancer status post left lower lobectomy
DVT prophylaxis�subcu Lovenox
Full Code
Updated at bedside 07/17
Total time spent to see the patient on the floor, examine the patient, review data and lab results, discuss treatment plan with patient, nursing staff around 50 minutes.
Physical Exam
General: Obese, no acute distress
HEENT: Normocephalic, Atraumatic, EOMI, MMM
Respiratory: Clear to Auscultation bilaterally
Cardiac: Normal S1/S2, Regular Rate and Rhythm
GI: Soft, Nontender, Nondistended, Normal Bowel Sounds
Extremities: No Clubbing, Cyanosis
Musculoskeletal: Right hip incision dressed
Neuro: Nonfocal/Grossly Intact
Psych: Calm, Cooperative
Derm: No Visible lesions
Anticipated Discharge: > 48 hours
Subjective/Interval History
-
Date of Service: July 18, 2023
Patient seen after her procedure. She reports being groggy from the procedure. Also having nausea, no vomiting. Her pain is tolerable. No fever.
Objective Data
-
Labs:
Laboratory Results
07/18/23
06:00
WBC Pending
Hgb Pending
Hct Pending
Plt Count Pending
Sodium Pending
Potassium Pending
Chloride Pending
Carbon Dioxide Pending
BUN Pending
Creatinine Pending
Glucose Pending
Calcium Pending
Vital Signs:
Vital Signs
Temp Pulse Resp BP Pulse Ox
98.2 F 66 16 136/45 93
07/18/23 03:21 07/18/23 03:21 07/18/23 03:21 07/18/23 03:21 07/18/23 03:21
I&O
07/17/23 07/18/23 07/19/23
06:59 06:59 06:59
Intake Total 1680 / 1680
Balance 1680 / 1680
--- NOTE | 2023-07-18 15:14 | CM ---
CM met with pt bedside
Pt resides with her spouse in a 3SH with 2STE
17 steps up to second floor
Powder room on 1st floor
Pt is current with [facility]
She is typically independent with her ADLs
Has RW and SPC for use as needed
Pt had a R VIKTORIYA on 06/02 as been utilizing DMEs and needing assistance since surgery
PCP- Michel Galeana
Rx- [facility] [address] [address]
Post op PT/OT evals pending
VN order in chart
Pt requesting hospital bed be arranged on dc as well as a [employer]
Pt willing to pay for rental of bed is no insurance coverage
Private duty list also provided to her per her request
Discharge Disposition- anticipate home with [facility] and hospital bed
--- NOTE | 2023-07-18 15:36 | W.PN.ID1 ---
Date of Service
Date of Service: July 18, 2023
Today's Communication
continue current antibiotics
Assessment / Plan
Surgical Site Infection
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
- blood cultures no growth to date
- OR cultures gram stains negative, will follow up cultures
- wound culture from the ER notable for proteus, pseudomans (both relatively sensitive) and moderate diptheroids; the urine is notable for an EBSL Kleb pneumoniae - a third isolate
- continue meropenem and
- added vancomycin for the diptheroid
- likely for 6 weeks of IV antibiotics
Chief Complaint
-: Other (PJI, surgical site infection)
Subjective / Review of Systems
afebrile
bp stable
increased leukocytosis today
plt 264,
cr 0.5
tissue cultures sent from the OR - gram stains all reviewed and no organisms seen
fluid described as murky from the OR by surgeon
Vital Signs / Physical Exam
Vital Signs
Vital Signs
Temp Pulse Resp BP Pulse Ox
97.3 F 77 18 126/51 95
07/18/23 13:30 07/18/23 13:30 07/18/23 13:30 07/18/23 13:30 07/18/23 13:30
Physical Exam
Constitutional: No Acute Distress
Cardiovascular: Regular Rate and S1/S2; Negative Murmur or Rub
Pulmonary: Clear and Symmetric; Negative Wheezes or Rales
Gastrointestinal: Soft, Non Tender, Non Distended and Normal Bowel Sounds
Skin: Warm and Dry; Negative Rash or Jaundice
Objective Data
Lab Data
Lab Results
07/18/23 11:31
07/18/23 11:31
ESR 59 mm/hour (0-20) H 07/17/23 13:15
PT 14.2 Sec (11.4-14.6) 07/17/23 13:15
INR 1.12 07/17/23 13:15
APTT 36.4 Sec (23.4-35.0) H 07/17/23 13:15
Estimated Creat Clear 90 ml/min 07/18/23 11:31
Lactic Acid Cancelled 07/17/23 16:45
Total Bilirubin 0.8 mg/dl (0.2-1.3) 07/17/23 13:15
AST 21 U/L (14-36) 07/17/23 13:15
ALT 12 U/L (0-35) 07/17/23 13:15
Alkaline Phosphatase 119 U/L (38-126) 07/17/23 13:15
C-Reactive Protein 195.30 mg/L (0.0-10.00) H 07/17/23 13:15
Most recent labs reviewed.
Micro Results:
07/18/23 09:30 Tissue Culture - Pending
Hip - Right Gram Stain - Preliminary
07/18/23 09:30 Body Fluid Culture - Pending
Joint Fluid Gram Stain - Preliminary
07/18/23 09:30 Tissue Culture - Pending
Hip - Right Gram Stain - Preliminary
07/18/23 09:30 Tissue Culture - Pending
Hip - Right Gram Stain - Preliminary
07/18/23 09:30 Tissue Culture - Pending
Hip - Right Gram Stain - Preliminary
07/18/23 09:30 Tissue Culture - Pending
Hip - Right Gram Stain - Preliminary
07/17/23 13:15 Blood Culture - Preliminary
Blood/Venous No Growth in 24 hours- Final report to follow
07/17/23 13:15 Blood Culture - Preliminary
Blood/Venous No Growth in 24 hours- Final report to follow
07/18/23 11:29 Nasal Screen MRSA (PCR) - Final
Nose MRSA not detected - performed by PCR methodology.
07/17/23 18:02 Nasal Screen MRSA (PCR) - Final
Nose
07/17/23 19:05 Urine Culture - Pending
Urine
[2023-07-18] MEDS: NON-FORMULARY ITEM BOTH EYES ×2 (15:37)
[2023-07-18] MEDS: ANESTHETIC LOZENGE 1 LOZENGE PO (15:52)
[2023-07-18] MEDS: ROXICODONE 10 MG PO ×2 (15:52→20:35)
[2023-07-18] MEDS: LOVENOX 40 MG SC (17:29)
[2023-07-18] MEDS: BACTROBAN 2% OINTMENT 1 APPLIC NASAL (20:22)
[2023-07-18] MEDS: SENOKOT 17.1999999999999993 MG PO (20:23)
[2023-07-18] MEDS: COLACE 100 MG PO (20:23)
[2023-07-18] MEDS: NON-FORMULARY ITEM 1 DROP BOTH EYES (20:35)
[2023-07-18] MEDS: DESYREL 50 MG PO (22:08)
[2023-07-18] MEDS: NEURONTIN 300 MG PO (22:08)
[2023-07-19] MEDS: NORMOSOL-R 1000 IV ×2 (01:49→12:09)
[2023-07-19] MEDS: MERREM 500 MG IV ×4 (01:49→20:16)
[2023-07-19] MEDS: STERILE WATER FOR INJECTION 10 ML IV ×4 (01:49→20:17)
[2023-07-19 03:29] VITALS: BP 133/52
[2023-07-19] MEDS: ROXICODONE 5 MG PO (03:46)
[2023-07-19 04:56] LABS: Hematocrit 22.7 % (37.0-47.0); Hemoglobin 7.5 g/dL (12.0-16.0); Mean Corpuscular Hgb 29.3 pg (27.0-31.0); Mean Corpuscular Volume 88.7 fL (81.0-99.0); Mean Platelet Volume 9.5 fL (7.4-10.4); Platelet Count 272 10^3/uL (130-400); Red Blood Cell Count 2.56 10^6/uL (4.20-5.40); Red Cell Dist. Width 13.2 % (11.5-14.5); White Blood Cell Count 8.7 10^3/uL (4.8-10.8)
[2023-07-19 05:12] LABS: Erythrocyte Sed Rate 82 mm/hour (0-20)
[2023-07-19] MEDS: VANCOCIN 200 IV ×2 (05:21→20:19)
[2023-07-19 05:25] LABS: Blood Urea Nitrogen 15 mg/dl (7-17); Carbon Dioxide 28 mmol/L (22-30); Chloride 103 mmol/L (98-107); Estimated Creatinine Clearance 90 ml/min; Glucose 125 mg/dl (70-99); Magnesium 1.9 mg/dl (1.6-2.3); Phosphorus 3.2 mg/dl (2.5-4.5); Sodium 134 mmol/L (135-145); eGFR > 60.00
[2023-07-19 07:00] VITALS: BP 123/51
[2023-07-19] MEDS: SYMBICORT 80/4.5 MCG INHALER 2 PUFF INH ×2 (07:45→19:54)
--- NOTE | 2023-07-19 08:54 | W.PN.ORTHO ---
Today's Communication / Plan
-
Appreciate the primary team, continue Tx
Either VNS or SNF, appreciate CM efforts
Hgb 7.5 this AM, PLEASE hold on transfusion- will recheck tomorrow
CRP 188.2, ESR pending (18 July). Will trend
Continue IV ABX per Dr. Ariza, plan for PICC prior to D/C
Follow intra-op cultures to direct therapy
Continue WBAT RLE on walker
PT/OT, THPs x 12 weeks
ASA 325mg daily x 4 weeks for DVT ppx
Dressing to remain 10-14 days
Assessment
.
Distal Motor Intact: Yes
Dressing:
Clean, dry and intact. No strikethrough noted
Assessment:
POD#1 Right VIKTORIYA revision (for assumed infxn)
Overall doing well this AM
Calf soft, nontender
Plan
.
Surgery / Date: Right VIKTORIYA revision/July 27 (Debbie)
DVT Prophylaxis: Aspirin
Activity:
Out of bed. WBAT RLE on walker
PT/OT, THPs x 12 weeks
Discharge Plan: Home w/ VN and SNF
Subjective
.
.:
Patient resting comfortably this AM. Mild right hip pain
Vital Signs and Labs
.
Vital Signs and Labs:
Lab Results
07/19/23 04:12
07/19/23 04:12
Temp Pulse Resp BP Pulse Ox
98 F 58 16 123/51 98
07/19/23 07:00 07/19/23 07:52 07/19/23 07:52 07/19/23 07:00 07/19/23 07:52
PT 14.2 Sec (11.4-14.6) 07/17/23 13:15
INR 1.12 07/17/23 13:15
[2023-07-19] MEDS: BACTROBAN 2% OINTMENT 1 APPLIC NASAL ×2 (08:55→20:19)
[2023-07-19] MEDS: SENOKOT 17.1999999999999993 MG PO ×2 (08:57→20:13)
[2023-07-19] MEDS: COLACE 100 MG PO ×2 (08:57→20:13)
[2023-07-19] MEDS: RYTHMOL 150 MG PO ×2 (08:58→20:12)
[2023-07-19] MEDS: ProAmatine 2.5 MG PO ×2 (08:58→20:13)
[2023-07-19] MEDS: NON-FORMULARY ITEM 75 MG PO (08:59)
[2023-07-19] MEDS: TYLENOL 1000 MG PO ×3 (08:59→22:13)
[2023-07-19] MEDS: ZOLOFT 50 MG PO ×2 (08:59→20:13)
[2023-07-19] MEDS: MIRALAX 17 GRAMS PO ×2 (09:00→20:12)
[2023-07-19] MEDS: NON-FORMULARY ITEM 1 DROP BOTH EYES (09:02)
--- NOTE | 2023-07-19 09:22 | VNURNOTE ---
Patient is current with [facility] since 06/20 w/ SN/PT, will monitor progress and plan at discharge.
--- NOTE | 2023-07-19 09:30 | PHA.VAN.FU ---
Vancomycin Assessment / Plan
- Assessment
Renal Function: Stable
WBC's are: WNL
In the past 24 hrs, patient has been: Afebrile
Concomitant Antimicrobials: meropenem
- Dosing Plan
Continue: Vanc 1000mg Q12H
- Monitoring Plan
Peak Level: 07/18 20:30
Trough Level: 07/19 05:30
Monitoring Comments: levels to be drawn after 4th maintenance dose
- Follow Up
Pharmacy will continue to follow.
Vancomycin Follow UP
- -
Patient Age: 77
Patient Sex: Female
Vancomycin Day #: 3
Indication: Bone And Joint
Requesting Provider: Dr. Ariza
Pertinent Antimicrobial Allergies:
levofloxacin - joint swelling/tenderness
Height / Weight:
Height 5 ft 6 in
Actual Weight 90.718 kg
IBW in k.3
Adjusted BW in k.8
Pertinent Past Medical History: BMI ~32, recent R. VIKTORIYA
- Vital Signs / Lab Results
Temp Pulse Resp BP Pulse Ox
98 F 60 16 123/51 98
07/19/23 07:00 07/19/23 08:58 07/19/23 07:52 07/19/23 08:58 07/19/23 07:52
Lab Results - Hematology
07/17/23 07/18/23 07/19/23
13:15 11:31 04:12
WBC 8.6 12.2 H 8.7
Lab Results - Chemistry
07/17/23 07/18/23 07/19/23
13:15 11:31 04:12
BUN 16 12 15
Creatinine 0.6 0.5 L 0.6
Estimated Creat Clear 90 90
Albumin 4.2
07/17/23 07/17/23
13:15 16:45
Lactic Acid 0.9 Cancelled
Microbiology Results
07/18/23 09:30 Gram Stain - Preliminary
Hip - Right
07/18/23 09:30 Gram Stain - Preliminary
Joint Fluid
07/18/23 09:30 Gram Stain - Preliminary
Hip - Right
07/18/23 09:30 Gram Stain - Preliminary
Hip - Right
07/18/23 09:30 Gram Stain - Preliminary
Hip - Right
07/18/23 09:30 Gram Stain - Preliminary
Hip - Right
07/17/23 13:15 Blood Culture - Preliminary
Blood/Venous No Growth in 24 hours- Final report to follow
07/17/23 13:15 Blood Culture - Preliminary
Blood/Venous No Growth in 24 hours- Final report to follow
07/18/23 11:29 Nasal Screen MRSA (PCR) - Final
Nose MRSA not detected - performed by PCR methodology.
07/17/23 18:02 Nasal Screen MRSA (PCR) - Final
Nose
--- NOTE | 2023-07-19 10:47 | W.PN.HOSP.TC ---
Today's Communication/Plan
-
see A/P
Assessment / Plan
Assessment / Plan
HPI: 77 yo who is 6 weeks s/p R VIKTORIYA, has history of recurrent UTI, HTN, anemia and pAF not anticoagulated who came in from ortho clinic in setting of worsening right hip pain/tenderness and swelling s/p athrocentesis that was equivocal for an
infection but with negative cultures to date. She was started on oral antibiotics for an UTI 4 days [employer] which was prior to the hip arthrocentesis and was found to have ESBL Klebsiella on cultures of the urine.
She remained mildly symptomatic with urinary frequency. No obvious complications in terms of obstructing stones. No pyelo on CT scan or exam.
A/P:
# UTI with ESBL Klebsiella
No pyelo but urinary symptoms remain with concern for hematogenous seeding of right hip / prosthesis
Appreciate ID input, continue Merrem, follow-up on blood/urine cultures
# Right hip prosthetic joint infection
# Recent right VIKTORIYA 6 weeks [employer]
Appreciate ID & orthopedic surgery input, status post right hip revision 07/17
Tissue culture with Pseudomonas, follow S/S
Continue Merrem/Vanco and Abx to be adjusted by ID
# Acute blood loss/post op anemia
Hgb today at 7.5 from 8.9 yesterday
Per ortho, do NOT transfuse PRBC
# Paroxysmal atrial fibrillation, status post PVI
Currently in normal sinus rhythm
Not on anticoagulation due to history of GI bleed
Rate controlled without any beta-blockers
# Bilateral LE swelling - swelling since surgery.
US negative for BL LE DVT
# Hyponatremia, mild
Sodium 134 today, she is on SSRI and hydrochlorothiazide prn outpatient
monitor
# History of orthostatic hypotension
Continue midodrine 2.5 mg twice a day
# History of breast cancer status post radiation
# History of lung cancer status post left lower lobectomy
DVT prophylaxis�subcu Lovenox
Full Code
DW RN
updated on the phone
Anticipated Discharge: > 48 hours
Subjective/Interval History
-
Date of Service: July 19, 2023
Objective Data
-
Labs:
Laboratory Results
07/19/23
04:12
WBC 8.7
Hgb 7.5 L
Hct 22.7 L
Plt Count 272
Sodium 134 L
Potassium 4.0
Chloride 103
Carbon Dioxide 28
BUN 15
Creatinine 0.6
Glucose 125 H
Calcium 8.0 L
Vital Signs:
Vital Signs
Temp Pulse Resp BP Pulse Ox
36.6 C 60 16 123/51 98
07/19/23 07:00 07/19/23 08:58 07/19/23 07:52 07/19/23 08:58 07/19/23 07:52
I&O
07/18/23 07/19/23 07/20/23
06:59 06:59 06:59
Intake Total 1680 / 1680 3790 / 3790
Output Total 1350 / 1350
Balance 1680 / 1680 2440 / 2440
Review of Systems
-
All other systems: Reviewed and negative
Physical Exam
-
General: Well Developed, Well Nourished, No Apparent Distress, Comfortable, Conversant and Appears Chronically Ill; Negative Respiratory Distress
HEENT: Normocephalic, Atraumatic, Nose Appears Normal and Ears Appear Normal; Negative Oxygen
Respiratory: Clear to Auscultation and Non Labored Respirations; Negative Accessory Resp Muscle Use
Cardiac: Regular Rhythm and S1/S2
GI: Soft, Nontender, Nondistended and Normal Bowel Sounds
Skin: Warm and Dry
Neuro: Awake, Alert and Oriented
Psych: Calm and Intact Judgement/Insight
Data Reviewed
-
Labs: Labs Reviewed by me
[2023-07-19 11:00] VITALS: BP 107/36
--- NOTE | 2023-07-19 13:24 | CM ---
Reviewed the chart notes. CM continues to be available to patient/family and is monitoring medical plan for needs at discharge.
Plan: Discharge to home with resumption of VN services. Referral previously sent and accepted.
--- NOTE | 2023-07-19 14:34 | W.PN.ID1 ---
Date of Service
Date of Service: July 19, 2023
Today's Communication
PICC
follow cultures
Assessment / Plan
Surgical Site Infection
Early PJI
- blood cultures no growth to date
- OR cultures 1 set with moderate Pseudomonas
- wound culture from the ER notable for proteus, pseudomans (both relatively sensitive) and moderate diptheroids; the urine is notable for an EBSL Kleb pneumoniae - a third isolate
- continue meropenem and vancomycin
- PICC
- likely for 6 weeks of IV antibiotics
Chief Complaint
-: Other (PJI, surgical site infection)
Subjective / Review of Systems
afebrile
bp stable
leukocytosis resolved
cr normal
1 OR culture now with presumptive PSA
Vital Signs / Physical Exam
Vital Signs
Vital Signs
Temp Pulse Resp BP Pulse Ox
98 F 70 14 107/36 97
07/19/23 11:00 07/19/23 11:00 07/19/23 11:00 07/19/23 11:00 07/19/23 11:22
Physical Exam
Constitutional: No Acute Distress
Cardiovascular: Regular Rate and S1/S2; Negative Murmur or Rub
Pulmonary: Clear and Symmetric; Negative Wheezes or Rales
Gastrointestinal: Soft, Non Tender, Non Distended and Normal Bowel Sounds
Skin: Warm and Dry; Negative Rash or Jaundice
Objective Data
Lab Data
Lab Results
07/19/23 04:12
07/19/23 04:12
ESR 82 mm/hour (0-20) H 07/19/23 04:12
PT 14.2 Sec (11.4-14.6) 07/17/23 13:15
INR 1.12 07/17/23 13:15
APTT 36.4 Sec (23.4-35.0) H 07/17/23 13:15
Estimated Creat Clear 90 ml/min 07/19/23 04:12
Lactic Acid Cancelled 07/17/23 16:45
Total Bilirubin 0.8 mg/dl (0.2-1.3) 07/17/23 13:15
AST 21 U/L (14-36) 07/17/23 13:15
ALT 12 U/L (0-35) 07/17/23 13:15
Alkaline Phosphatase 119 U/L (38-126) 07/17/23 13:15
C-Reactive Protein 188.20 mg/L (0.0-10.00) H 07/19/23 04:12
Most recent labs reviewed.
Micro Results:
07/17/23 13:15 Blood Culture - Preliminary
Blood/Venous No Growth in 48 hours- Final report to follow
07/17/23 13:15 Blood Culture - Preliminary
Blood/Venous No Growth in 48 hours- Final report to follow
07/17/23 19:05 Urine Culture - Final
Urine NO GROWTH
07/18/23 09:30 Tissue Culture - Preliminary
Hip - Right No Growth After 18-24 Hours
Gram Stain - Preliminary
07/18/23 09:30 Anaerobic Culture - Preliminary
Hip - Right Culture pending. Anaerobic cultures are examined after 3
days incubation. Additional information to follow.
07/18/23 09:30 Tissue Culture - Preliminary
Hip - Right No Growth After 18-24 Hours
Gram Stain - Preliminary
07/18/23 09:30 Anaerobic Culture - Preliminary
Hip - Right Culture pending. Anaerobic cultures are examined after 3
days incubation. Additional information to follow.
07/18/23 09:30 Tissue Culture - Preliminary
Hip - Right No Growth After 18-24 Hours
Gram Stain - Preliminary
07/18/23 09:30 Anaerobic Culture - Preliminary
Hip - Right Culture pending. Anaerobic cultures are examined after 3
days incubation. Additional information to follow.
07/18/23 09:30 Tissue Culture - Preliminary
Hip - Right No Growth After 18-24 Hours
Gram Stain - Preliminary
07/18/23 09:30 Body Fluid Culture - Preliminary
Joint Fluid No Growth After 18-24 Hours
Gram Stain - Preliminary
07/18/23 09:30 Tissue Culture - Preliminary
Hip - Right Pseudomonas aeruginosa
Gram Stain - Preliminary
07/18/23 11:29 Nasal Screen MRSA (PCR) - Final
Nose MRSA not detected - performed by PCR methodology.
07/17/23 18:02 Nasal Screen MRSA (PCR) - Final
Nose
[2023-07-19 15:00] VITALS: BP 115/46
--- NOTE | 2023-07-19 16:00 | VNURNOTE ---
[facility] resumption of care in 'saved' mode until closer to discharge home. Patient and spouse confirm having [facility] contact number.
Patient is requesting hospital bed at home and Liaison will start order process.
Patient and spouse are agreeable that if bed is not covered by insurance they are willing to rent for $175/month.
[2023-07-19] MEDS: DILAUDID 0.5 MG IV ×2 (17:01→22:26)
[2023-07-19] MEDS: LOVENOX 40 MG SC (17:48)
[2023-07-19] MEDS: VANCOCIN IV (17:48)
[2023-07-19 19:36] VITALS: BP 120/46
[2023-07-19] MEDS: NON-FORMULARY ITEM BOTH EYES (20:39)
[2023-07-19] MEDS: NEURONTIN 300 MG PO (22:13)
[2023-07-19] MEDS: DESYREL 50 MG PO (22:13)
[2023-07-19 23:39] VITALS: BP 128/51
[2023-07-20] VITALS (11 sets, daily range): BP systolic 108–143; BP diastolic 48–80
[2023-07-20 00:24] LABS: Vancomycin Peak 22.3 ug/ml (18-26)
[2023-07-20] MEDS: STERILE WATER FOR INJECTION 10 ML IV ×4 (01:55→20:12)
[2023-07-20] MEDS: MERREM 500 MG IV ×4 (01:56→20:11)
[2023-07-20 05:53] LABS: Mean Corp Hgb Conc. 32.7 g/dL (33.0-37.0); Mean Corpuscular Hgb 29.9 pg (27.0-31.0); Mean Corpuscular Volume 91.5 fL (81.0-99.0); Mean Platelet Volume 9.2 fL (7.4-10.4); Platelet Count 286 10^3/uL (130-400); Red Blood Cell Count 2.24 10^6/uL (4.20-5.40); Red Cell Dist. Width 13.6 % (11.5-14.5); White Blood Cell Count 7.5 10^3/uL (4.8-10.8)
[2023-07-20 06:03] LABS: Hemoglobin 6.7 g/dL (12.0-16.0)
[2023-07-20 06:04] LABS: Hematocrit 20.5 % (37.0-47.0)
[2023-07-20 06:10] LABS: Vancomycin Trough 15.5 ug/ml (5-20)
[2023-07-20] MEDS: VANCOCIN 200 IV ×2 (06:17→17:18)
[2023-07-20 06:44] LABS: Blood Urea Nitrogen 15 mg/dl (7-17); Calcium 8.2 mg/dl (8.4-10.2); Carbon Dioxide 31 mmol/L (22-30); Chloride 104 mmol/L (98-107); Estimated Creatinine Clearance 90 ml/min; Glucose 87 mg/dl (70-99); Potassium 4.1 mmol/L (3.5-5.1); Sodium 137 mmol/L (135-145); eGFR > 60.00
[2023-07-20] MEDS: SYMBICORT 80/4.5 MCG INHALER 2 PUFF INH ×2 (07:36→19:34)
--- NOTE | 2023-07-20 07:57 | W.PN.UPDATE ---
Update Note
Progress Note Update
77-year-old female status post right total hip arthroplasty revision [address] Lewis. Patient was seen this a.m. by Dr. Lewis. Hemoglobin at 6.7 this a.m. and decision for transfusion was made. Dressing also had saturation which
is change by RN. Pseudomonas on 1 hip culture identified.
-Recommend continue physical therapy with total hip precautions and assist devices as indicated.
-Recommend consideration for [facility] if she is a candidate
-Continued Aquacel dressing changes as needed for saturation
--- NOTE | 2023-07-20 08:26 | PHA.VAN.FU ---
Vancomycin Assessment / Plan
- Assessment
Renal Function: Stable
WBC's are: WNL
Concomitant Antimicrobials: meropenem
- Assessment - Therapeutic Drug Monitoring
Extrapolated Cmax (mcg/mL): 25.9
Peak level was drawn: Appropriately (drawn ~2.5H after end of previous infusion)
Extrapolated Cmin (mcg/mL): 13.3
Trough Drawn: Appropriately
Levels were drawn: At steady state (levels drawn after 4th maintenance dose)
Calculated AUC (mcg*h/mL): 455
Calculated ke: 0.0610
Calculated half life (H): 11.4
Calculated Vd (L): 72 (0.79 L/kg)
Calculated Vanc CL (ml/min): 73
- Dosing Plan
Continue: Vanc 1000mg Q12H
- Monitoring Plan
Level(s) appropriate: Recheck trough at minimum of weekly intervals, Repeat sooner for changes in renal function or clinical status
Next Level Due (Date): ~07/26
- Follow Up
Pharmacy will continue to follow.
Vancomycin Follow UP
- -
Patient Age: 77
Patient Sex: Female
Vancomycin Day #: 4
Indication: Bone And Joint
Requesting Provider: Dr. Ariza
Pertinent Antimicrobial Allergies:
levofloxacin - joint swelling/tenderness
Height / Weight:
Height 5 ft 6 in
Actual Weight 90.718 kg
IBW in k.3
Adjusted BW in k.8
Pertinent Past Medical History: BMI ~32, recent R. VIKTORIYA
- Vital Signs / Lab Results
Temp Pulse Resp BP Pulse Ox
98.2 F 60 16 143/59 98
07/20/23 07:00 07/20/23 07:42 07/20/23 07:42 07/20/23 07:00 07/20/23 07:42
Lab Results - Hematology
04/07/18/23 07/19/23
13:15 11:31 04:12
WBC 8.6 12.2 H 8.7
07/20/23
05:46
WBC 7.5
Lab Results - Chemistry
07/17/23 07/18/23 07/19/23
13:15 11:31 04:12
BUN 16 12 15
Creatinine 0.6 0.5 L 0.6
Estimated Creat Clear 90 90
Albumin 4.2
07/20/23
05:46
BUN 15
Creatinine 0.6
Estimated Creat Clear 90
Albumin
07/17/23 07/17/23
13:15 16:45
Lactic Acid 0.9 Cancelled
Microbiology Results
07/18/23 09:30 Tissue Culture - Preliminary
Hip - Right Pseudomonas aeruginosa
Gram Stain - Preliminary
07/17/23 13:15 Blood Culture - Preliminary
Blood/Venous No Growth in 48 hours- Final report to follow
07/17/23 13:15 Blood Culture - Preliminary
Blood/Venous No Growth in 48 hours- Final report to follow
07/17/23 19:05 Urine Culture - Final
Urine NO GROWTH
07/18/23 09:30 Tissue Culture - Preliminary
Hip - Right No Growth After 18-24 Hours
Gram Stain - Preliminary
07/18/23 09:30 Anaerobic Culture - Preliminary
Hip - Right Culture pending. Anaerobic cultures are examined after 3
days incubation. Additional information to follow.
07/18/23 09:30 Tissue Culture - Preliminary
Hip - Right No Growth After 18-24 Hours
Gram Stain - Preliminary
07/18/23 09:30 Anaerobic Culture - Preliminary
Hip - Right Culture pending. Anaerobic cultures are examined after 3
days incubation. Additional information to follow.
07/18/23 09:30 Tissue Culture - Preliminary
Hip - Right No Growth After 18-24 Hours
Gram Stain - Preliminary
07/18/23 09:30 Anaerobic Culture - Preliminary
Hip - Right Culture pending. Anaerobic cultures are examined after 3
days incubation. Additional information to follow.
07/18/23 09:30 Tissue Culture - Preliminary
Hip - Right No Growth After 18-24 Hours
Gram Stain - Preliminary
07/18/23 09:30 Body Fluid Culture - Preliminary
Joint Fluid No Growth After 18-24 Hours
Gram Stain - Preliminary
07/18/23 11:29 Nasal Screen MRSA (PCR) - Final
Nose MRSA not detected - performed by PCR methodology.
07/17/23 18:02 Nasal Screen MRSA (PCR) - Final
Nose
Therapeutic Drug Monitoring
Vancomycin Peak 22.3 ug/ml (18-26) 07/19/23 23:48
Vancomycin Trough 15.5 ug/ml (5-20) 07/20/23 05:46
[2023-07-20] MEDS: RYTHMOL 150 MG PO ×2 (08:46→20:14)
[2023-07-20] MEDS: COLACE 100 MG PO (08:46)
[2023-07-20] MEDS: SENOKOT 17.1999999999999993 MG PO (08:46)
[2023-07-20] MEDS: ZOLOFT 50 MG PO ×2 (08:46→20:14)
[2023-07-20] MEDS: TYLENOL 1000 MG PO ×3 (08:47→22:29)
[2023-07-20] MEDS: MIRALAX 17 GRAMS PO (08:49)
[2023-07-20] MEDS: NON-FORMULARY ITEM 75 MG PO (08:50)
[2023-07-20] MEDS: DILAUDID 0.5 MG IV ×3 (09:02→21:45)
--- NOTE | 2023-07-20 09:04 | PTCARENOTE ---
Dr. Lewis present at morning report and requested for right hip dressing change to be completed at this time. Dr. Lewis reviewed dressing change with Professor Allie Curran RN and primary nurse. Old dressing removed with large amount of
sanguinous drainage. Incision clean, dry, kesha intact and approximated. Patient reported tenderness with tape removal but denied incisional pain at this time. Wound change intervention documented.
[2023-07-20] MEDS: ProAmatine PO (09:17)
--- NOTE | 2023-07-20 09:24 | W.PN.HOSP.TC ---
Today's Communication/Plan
-
see A/P
Assessment / Plan
Assessment / Plan
HPI: 77 yo who is 6 weeks s/p R VIKTORIYA, has history of recurrent UTI, HTN, anemia and pAF not anticoagulated who came in from ortho clinic in setting of worsening right hip pain/tenderness and swelling s/p athrocentesis that was equivocal for an
infection but with negative cultures to date. She was started on oral antibiotics for an UTI 4 days [employer] which was prior to the hip arthrocentesis and was found to have ESBL Klebsiella on cultures of the urine.
She remained mildly symptomatic with urinary frequency. No obvious complications in terms of obstructing stones. No pyelo on CT scan or exam.
A/P:
# UTI with ESBL Klebsiella
No pyelo but urinary symptoms remain with concern for hematogenous seeding of right hip / prosthesis
Blood Cx negative
Appreciate ID input, continue Merrem
# Right hip prosthetic joint infection
# Recent right VIKTORIYA 6 weeks [employer]
Wound Cx with Proteus, Pseudomonas
Appreciate ID & orthopedic surgery input, status post right hip revision 07/17
Tissue culture with Pseudomonas
Continue Merrem and Vanco per ID, ancipitate 6 weeks of IV antibiotics with PICC
# Acute blood loss/post op anemia
Hgb today at 6.7 from 10.3
Transfuse 1 unit PRBC today
# Paroxysmal atrial fibrillation, status post PVI
Currently in normal sinus rhythm
Not on anticoagulation due to history of GI bleed
Rate controlled without any beta-blockers
# Bilateral LE swelling - swelling since surgery.
US negative for BL LE DVT
# Mild Hyponatremia, resolved
# History of orthostatic hypotension
Continue midodrine 2.5 mg twice a day
# History of breast cancer status post radiation
# History of lung cancer status post left lower lobectomy
# likely vulvovaginitis
start trial of clotrimazole cream
DVT prophylaxis�subcu Lovenox
Full Code
DW RN
updated on the phone 07/18
Anticipated Discharge: > 48 hours
Subjective/Interval History
-
Date of Service: July 20, 2023
Objective Data
-
Labs:
Laboratory Results
07/20/23
05:46
WBC 7.5
Hgb 6.7 L*
Hct 20.5 L*
Plt Count 286
Sodium 137
Potassium 4.1
Chloride 104
Carbon Dioxide 31 H
BUN 15
Creatinine 0.6
Glucose 87
Calcium 8.2 L
Vital Signs:
Vital Signs
Temp Pulse Resp BP Pulse Ox
36.8 C 61 16 143/59 98
07/20/23 07:00 07/20/23 09:17 07/20/23 07:42 07/20/23 09:17 07/20/23 07:42
I&O
07/19/23 07/20/23 07/21/23
06:59 06:59 06:59
Intake Total 3790 / 3790 2059
Output Total 1350 / 1350 500 / 500
Balance 2440 / 2440 1560 / 1560
Review of Systems
-
All other systems: Reviewed and negative
Physical Exam
-
General: Well Developed, Well Nourished, No Apparent Distress, Comfortable, Conversant and Appears Chronically Ill; Negative Respiratory Distress
HEENT: Normocephalic, Atraumatic, Nose Appears Normal and Ears Appear Normal; Negative Oxygen
Respiratory: Clear to Auscultation and Non Labored Respirations; Negative Accessory Resp Muscle Use
Cardiac: Regular Rhythm and S1/S2
GI: Soft, Nontender, Nondistended and Normal Bowel Sounds
Skin: Warm and Dry
Neuro: Awake, Alert and Oriented
Psych: Calm and Intact Judgement/Insight
Data Reviewed
-
Labs: Labs Reviewed by me
[2023-07-20] MEDS: NON-FORMULARY ITEM BOTH EYES (09:31)
--- NOTE | 2023-07-20 10:17 | WOUNDNOTE ---
PRABHAKAR RN NOTE: Patient is s/p R hip revision for infected hardware. Asked to see patient per Dr. Lewis to evaluate R hip surgical site if wound vac. appropriate. Suture line is closed with kesha, no open wound, drainage moderate serous, dressing
changed by nursing this AM. Sacrum is intact, patient able to turn self to R side by log rolling. Recommend dry dressing as ordered, no need for wound vac. Will sign off.
[2023-07-20] MEDS: NON-FORMULARY ITEM 1 DROP BOTH EYES ×2 (12:15→20:11)
--- NOTE | 2023-07-20 12:15 | PTCARENOTE ---
Blood infusion initiated at 12:05, verified info, vitals doc, unable to begin in the computer. blood bank notified, blood started within time frame. [place] slip was sent to be completed. plan of care ongoing.
[2023-07-20] MEDS: LOTRIMIN 1% CREAM 1 APPLIC TOPICAL (12:16)
--- NOTE | 2023-07-20 15:36 | CM ---
Reviewed the chart notes and spoke with the patient at the bedside. Discussed the need for IV abx for 6 weeks. Patient agreeable to SNF/rehab. Referrals sent via [facility]. CM continues to be available to patient/family and is monitoring medical
plan for needs at discharge.
Plan: Discharge to SNF/rehab when medically stable and bed found.
[2023-07-20] MEDS: LOVENOX 40 MG SC (17:17)
[2023-07-20] MEDS: COLACE PO ×2 (20:10→20:33)
[2023-07-20] MEDS: MIRALAX PO ×2 (20:10→20:34)
[2023-07-20] MEDS: ProAmatine 2.5 MG PO (20:12)
[2023-07-20] MEDS: SENOKOT PO ×2 (20:12→20:34)
[2023-07-20] MEDS: DESYREL 50 MG PO (21:45)
[2023-07-20] MEDS: LOTRIMIN 1% CREAM TOPICAL (21:50)
[2023-07-20] MEDS: NEURONTIN 300 MG PO (22:29)
[2023-07-21] VITALS (7 sets, daily range): BP systolic 106–162; BP diastolic 52–65; PULSE 69; O2SAT 99
[2023-07-21] MEDS: MERREM 500 MG IV ×4 (02:00→20:30)
[2023-07-21] MEDS: STERILE WATER FOR INJECTION 10 ML IV ×4 (02:00→20:30)
[2023-07-21] MEDS: DILAUDID 0.5 MG IV ×4 (04:30→23:18)
[2023-07-21] MEDS: VANCOCIN 200 IV ×2 (05:54→18:04)
[2023-07-21 06:40] LABS: Hematocrit 22.4 % (37.0-47.0); Hemoglobin 7.6 g/dL (12.0-16.0); Mean Corp Hgb Conc. 33.9 g/dL (33.0-37.0); Mean Corpuscular Hgb 30.3 pg (27.0-31.0); Mean Corpuscular Volume 89.2 fL (81.0-99.0); Platelet Count 309 10^3/uL (130-400); Red Blood Cell Count 2.51 10^6/uL (4.20-5.40); Red Cell Dist. Width 13.8 % (11.5-14.5); White Blood Cell Count 7.2 10^3/uL (4.8-10.8)
[2023-07-21] MEDS: SYMBICORT 80/4.5 MCG INHALER 2 PUFF INH ×2 (07:02→20:41)
[2023-07-21 07:07] LABS: Blood Urea Nitrogen 14 mg/dl (7-17); Calcium 8.4 mg/dl (8.4-10.2); Carbon Dioxide 28 mmol/L (22-30); Chloride 104 mmol/L (98-107); Estimated Creatinine Clearance 90 ml/min; Glucose 101 mg/dl (70-99); Potassium 3.7 mmol/L (3.5-5.1); Sodium 137 mmol/L (135-145); eGFR > 60.00
--- NOTE | 2023-07-21 07:28 | W.PN.UPDATE ---
Update Note
Progress Note Update
Ms. King is POD 3 following her right hip revision of femoral and acetabular components performed by Dr. Lewis on 07/18/2023. She is resting comfortably in bed this morning. She is sleepy, but arousable and answers questions appropriately. She
reports aching pain about her hip, but does endorse slow improvement with time.
Directed exam of the right lower extremity reveals ABDs in place with serous drainage. Surgical incision well approximated with kesha. No active drainage at present. Thigh soft and compressible. Calf soft and nontender. Patient able to wiggle
toes, plantar and dorsiflex ankle. NVID. VSS, afebrile.
Cultures positive for pseudomonas.
Hgb 7.6 this AM.
77 yo F POD3 revision right hip for PJI under the direction of Dr. Lewis
--Continue WBAT to RLE with assistive device. THPs x6-8 weeks. We appreciate the assistance of PT/OT.
--Recommend ASA 325 mg daily x4 weeks for dvt ppx.
--Cultures positive for pseudomonas. Continue to follow. Continue abx per ID. Currently meropenem and vacno. PICC.
--Hgb 7.6 this AM. Continue to monitor.
--Continue prn dressing changes.
--Outpatient follow up at 2 weeks post-op for staple removal and repeat evaluation.
--Case management consult for d/c planning.
--Orthopedics will continue to follow along.
[2023-07-21 08:35] LABS: Erythrocyte Sed Rate 62 mm/hour (0-20)
[2023-07-21] MEDS: RYTHMOL 150 MG PO ×2 (08:37→20:26)
[2023-07-21] MEDS: ZOLOFT 50 MG PO ×2 (08:37→20:27)
[2023-07-21] MEDS: TYLENOL 1000 MG PO ×3 (08:37→21:34)
[2023-07-21] MEDS: ProAmatine 2.5 MG PO (08:37)
[2023-07-21] MEDS: COLACE PO ×3 (08:38→20:41)
[2023-07-21] MEDS: MIRALAX PO ×2 (08:38→20:33)
--- NOTE | 2023-07-21 08:38 | PHA.VAN.FU ---
Vancomycin Assessment / Plan
- Assessment
Renal Function: Stable
WBC's are: WNL
In the past 24 hrs, patient has been: Afebrile
Concomitant Antimicrobials: meropenem
- Dosing Plan
Continue: Vanc 1000mg Q12H
- Monitoring Plan
Level(s) appropriate: Recheck trough at minimum of weekly intervals, Repeat sooner for changes in renal function or clinical status
Next Level Due (Date): ~07/26, may consider sooner
- Follow Up
Pharmacy will continue to follow.
Vancomycin Follow UP
- -
Patient Age: 77
Patient Sex: Female
Vancomycin Day #: 5
Indication: Bone And Joint
Requesting Provider: Dr. Ariza
Pertinent Antimicrobial Allergies:
levofloxacin - joint swelling/tenderness
Height / Weight:
Height 5 ft 6 in
Actual Weight 90.718 kg
IBW in k.3
Adjusted BW in k.8
Pertinent Past Medical History: BMI ~32, recent R. VIKTORIYA
- Vital Signs / Lab Results
Temp Pulse Resp BP Pulse Ox
97.8 F 64 16 162/60 95
07/21/23 07:50 07/21/23 07:50 07/21/23 07:50 07/21/23 07:50 07/21/23 07:50
Lab Results - Hematology
07/18/23 07/19/23 07/20/23
11:31 04:12 05:46
WBC 12.2 H 8.7 7.5
07/21/23
06:22
WBC 7.2
Lab Results - Chemistry
07/18/23 07/19/23 07/20/23
11:31 04:12 05:46
BUN 12 15 15
Creatinine 0.5 L 0.6 0.6
Estimated Creat Clear 90 90 90
04/17/24
06:22
BUN 14
Creatinine 0.5 L
Estimated Creat Clear 90
Microbiology Results
07/17/23 13:15 Blood Culture - Preliminary
Blood/Venous No Growth in 72 hours- Final report to follow
07/17/23 13:15 Blood Culture - Preliminary
Blood/Venous No Growth in 72 hours- Final report to follow
07/18/23 09:30 Body Fluid Culture - Preliminary
Joint Fluid Pseudomonas aeruginosa
Gram Stain - Preliminary
07/18/23 09:30 Tissue Culture - Preliminary
Hip - Right No Growth After 48 Hours
Gram Stain - Preliminary
07/18/23 09:30 Tissue Culture - Preliminary
Hip - Right No Growth After 48 Hours
Gram Stain - Preliminary
07/18/23 09:30 Tissue Culture - Preliminary
Hip - Right No Growth After 48 Hours
Gram Stain - Preliminary
07/18/23 09:30 Tissue Culture - Preliminary
Hip - Right Pseudomonas aeruginosa
Gram Stain - Preliminary
07/18/23 09:30 Tissue Culture - Final
Hip - Right Pseudomonas aeruginosa
Gram Stain - Final
07/17/23 19:05 Urine Culture - Final
Urine NO GROWTH
07/18/23 09:30 Anaerobic Culture - Preliminary
Hip - Right Culture pending. Anaerobic cultures are examined after 3
days incubation. Additional information to follow.
07/18/23 09:30 Anaerobic Culture - Preliminary
Hip - Right Culture pending. Anaerobic cultures are examined after 3
days incubation. Additional information to follow.
07/18/23 09:30 Anaerobic Culture - Preliminary
Hip - Right Culture pending. Anaerobic cultures are examined after 3
days incubation. Additional information to follow.
Therapeutic Drug Monitoring
Vancomycin Peak 22.3 ug/ml (18-26) 07/19/23 23:48
Vancomycin Trough 15.5 ug/ml (5-20) 07/20/23 05:46
[2023-07-21] MEDS: NON-FORMULARY ITEM 75 MG PO (08:39)
[2023-07-21] MEDS: SENOKOT PO ×3 (08:39→20:41)
[2023-07-21] MEDS: LOTRIMIN 1% CREAM TOPICAL (08:39)
[2023-07-21] MEDS: NON-FORMULARY ITEM 1 DROP BOTH EYES ×2 (08:45→20:33)
--- NOTE | 2023-07-21 11:18 | W.PN.UPDATE ---
Update Note
Progress Note Update
pt seen and examined, continues to feel better. Does not appear toxic or fatigued as she did preop.
INcision looks very good w. no redness. There is serous fluid on bandage which nurse will change when pt next up.
CRP continues to decline which is encouraging, now 64.
Plan for dispo to facility, wont be able to help her sufficiently.
inflam labs every 1-2 weeks would be helpful to trend treatment.
Apprec all involved
--- NOTE | 2023-07-21 11:24 | W.PN.HOSP.TC ---
Today's Communication/Plan
-
see A/P
Assessment / Plan
Assessment / Plan
HPI: 77 yo who is 6 weeks s/p R VIKTORIYA, has history of recurrent UTI, HTN, anemia and pAF not anticoagulated who came in from ortho clinic in setting of worsening right hip pain/tenderness and swelling s/p athrocentesis that was equivocal for an
infection but with negative cultures to date. She was started on oral antibiotics for an UTI 4 days [employer] which was prior to the hip arthrocentesis and was found to have ESBL Klebsiella on cultures of the urine.
She remained mildly symptomatic with urinary frequency. No obvious complications in terms of obstructing stones. No pyelo on CT scan or exam.
A/P:
# UTI with ESBL Klebsiella
No pyelo but urinary symptoms remain with concern for hematogenous seeding of right hip / prosthesis
Blood Cx negative
Appreciate ID input, continue Merrem
# Right hip prosthetic joint infection
# Recent right VIKTORIYA 6 weeks [employer]
Wound Cx with Proteus, Pseudomonas
Appreciate ID & orthopedic surgery input, status post right hip revision 07/17
Tissue culture with pansensitive Pseudomonas
For now, continue Merrem and Vanco, further Abx per ID, ancipitate 6 weeks of IV antibiotics with PICC
# Acute blood loss/post op anemia
Hgb was at 6.7, Transfused 1 unit PRBC 07/19, today improved to 7.6
# Paroxysmal atrial fibrillation, status post PVI
Currently in normal sinus rhythm
Not on anticoagulation due to history of GI bleed
Rate controlled without any beta-blockers
# Bilateral LE swelling - swelling since surgery.
US negative for BL LE DVT
# Mild Hyponatremia, resolved
# History of orthostatic hypotension
Continue midodrine 2.5 mg twice a day
# History of breast cancer status post radiation
# History of lung cancer status post left lower lobectomy
# likely vulvovaginitis
start trial of clotrimazole cream
DVT prophylaxis�subcu Lovenox
Full Code
DW RN
updated on the phone 07/18
Anticipated Discharge: 24 - 48 hours
Subjective/Interval History
-
Date of Service: July 21, 2023
Objective Data
-
Labs:
Laboratory Results
07/21/23
06:22
WBC 7.2
Hgb 7.6 L
Hct 22.4 L
Plt Count 309
Sodium 137
Potassium 3.7
Chloride 104
Carbon Dioxide 28
BUN 14
Creatinine 0.5 L
Glucose 101 H
Calcium 8.4
Vital Signs:
Vital Signs
Temp Pulse Resp BP Pulse Ox
36.6 C 64 16 162/60 95
07/21/23 07:50 07/21/23 07:50 07/21/23 07:50 07/21/23 07:50 07/21/23 07:50
I&O
07/20/23 07/21/23 07/22/23
06:59 06:59 06:59
Intake Total 2059 890 / 890
Output Total 500 / 500
Balance 1560 / 1560 890 / 890
Review of Systems
-
All other systems: Reviewed and negative
Physical Exam
-
General: Well Developed, Well Nourished, No Apparent Distress, Comfortable, Conversant and Appears Chronically Ill; Negative Respiratory Distress
HEENT: Normocephalic, Atraumatic, Nose Appears Normal and Ears Appear Normal; Negative Oxygen
Respiratory: Clear to Auscultation and Non Labored Respirations; Negative Accessory Resp Muscle Use
Cardiac: Regular Rhythm and S1/S2
GI: Soft, Nontender, Nondistended and Normal Bowel Sounds
Skin: Warm and Dry
Neuro: Awake, Alert and Oriented
Psych: Calm and Intact Judgement/Insight
Data Reviewed
-
Labs: Labs Reviewed by
--- NOTE | 2023-07-21 15:05 | W.PN.ID1 ---
Date of Service
Date of Service: July 21, 2023
Today's Communication
stable for dc from ID perspective, I will continue following cultues to completion
Assessment / Plan
Surgical Site Infection
Early PJI
vulvovaginitis
- blood cultures no growth to date
- OR cultures 4 sets with moderate Pseudomonas
- wound culture from the ER notable for proteus, pseudomonas (both relatively sensitive) and moderate diptheroids; the urine is notable for an EBSL Kleb pneumoniae - a third isolate
- continue meropenem dose can be switched to 1 gm Q8hrs when approaching discharge - plan for 6 weeks of therapy 07/14-08/24
- continue vancomycin tentatively for 2 weeks 07/14-07/27 - could be extended if diptheroid seen in OR culture
- PICC
- agree with clotrimazole
- follow up in 4-5 weeks to further discuss suppression; Dr Perera did reach out and let me know he prefers suppression in this case
Chief Complaint
-: Other (PJI, surgical site infection)
Subjective / Review of Systems
afebrile
bp stable
without leukocytosis
hgb stable
4 OR cultures now with pseudomonas, diptheroids have not been IDd thus far
vulvovaginitis - agree with clotrimazole
Vital Signs / Physical Exam
Vital Signs
Vital Signs
Temp Pulse Resp BP Pulse Ox
97.6 F 63 16 140/60 96
07/21/23 11:33 07/21/23 11:33 07/21/23 11:33 07/21/23 11:33 07/21/23 11:33
Physical Exam
Constitutional: No Acute Distress
Cardiovascular: Regular Rate and S1/S2; Negative Murmur or Rub
Pulmonary: Clear and Symmetric; Negative Wheezes or Rales
Gastrointestinal: Soft, Non Tender, Non Distended and Normal Bowel Sounds
Skin: Warm and Dry; Negative Rash or Jaundice
Objective Data
Lab Data
Lab Results
07/21/23 06:22
07/21/23 06:22
ESR Cancelled 07/21/23 08:00
PT 14.2 Sec (11.4-14.6) 07/17/23 13:15
INR 1.12 07/17/23 13:15
APTT 36.4 Sec (23.4-35.0) H 07/17/23 13:15
Estimated Creat Clear 90 ml/min 07/21/23 06:22
Lactic Acid Cancelled 07/17/23 16:45
Total Bilirubin 0.8 mg/dl (0.2-1.3) 07/17/23 13:15
AST 21 U/L (14-36) 07/17/23 13:15
ALT 12 U/L (0-35) 07/17/23 13:15
Alkaline Phosphatase 119 U/L (38-126) 07/17/23 13:15
C-Reactive Protein Cancelled 07/21/23 08:00
Most recent labs reviewed.
Micro Results:
07/17/23 13:15 Blood Culture - Preliminary
Blood/Venous No Growth in 4 days- Final report to follow
07/17/23 13:15 Blood Culture - Preliminary
Blood/Venous No Growth in 4 days- Final report to follow
07/18/23 09:30 Anaerobic Culture - Preliminary
Hip - Right Culture pending. Anaerobic cultures are examined after 3
days incubation. Additional information to follow.
07/18/23 09:30 Anaerobic Culture - Preliminary
Hip - Right Culture pending. Anaerobic cultures are examined after 3
days incubation. Additional information to follow.
07/18/23 09:30 Anaerobic Culture - Preliminary
Hip - Right NO ANAEROBES ISOLATED
07/18/23 09:30 Tissue Culture - Preliminary
Hip - Right Pseudomonas aeruginosa
Gram Stain - Preliminary
07/18/23 09:30 Tissue Culture - Final
Hip - Right Pseudomonas aeruginosa
Gram Stain - Final
07/18/23 09:30 Tissue Culture - Preliminary
Hip - Right No Growth After 72 Hours
Gram Stain - Preliminary
07/18/23 09:30 Tissue Culture - Preliminary
Hip - Right No Growth After 72 Hours
Gram Stain - Preliminary
07/18/23 09:30 Body Fluid Culture - Final
Joint Fluid Pseudomonas aeruginosa
Gram Stain - Final
07/18/23 09:30 Tissue Culture - Final
Hip - Right Pseudomonas aeruginosa
Gram Stain - Final
07/17/23 19:05 Urine Culture - Final
Urine NO GROWTH
07/18/23 11:29 Nasal Screen MRSA (PCR) - Final
Nose MRSA not detected - performed by PCR methodology.
07/17/23 18:02 Nasal Screen MRSA (PCR) - Final
Nose
--- NOTE | 2023-07-21 15:57 | CM ---
Reviewed the chart notes and spoke with the patient at the bedside. Discussed with the patient that [facility] not able to accept. Prescription of IV abx sent to [facility]. CM continues to be available to patient/family and is monitoring medical
plan for needs at discharge.
Plan: Discharge to SNF/rehab when medically stable and bed found. No precert required.
[2023-07-21] MEDS: LOVENOX 40 MG SC (18:04)
--- NOTE | 2023-07-21 20:21 | RESPNOTE ---
Addendum entered by Liam Roberts, RT 07/21/23 20:23:
Disreguard, not by myself was written on wrong patient.
Original Note:
Post respitatory tx (duoneb), pt was c/0 some restriction in taking a deep breath. She mentioned it was brought up to her physician, and wanted to let others know. Saturation 96% on 2 lpm O2. Will mention this to her RN as well
[2023-07-21] MEDS: ProAmatine PO (20:30)
[2023-07-21] MEDS: LOTRIMIN 1% CREAM 1 APPLIC TOPICAL (20:31)
[2023-07-21] MEDS: DESYREL 50 MG PO (21:34)
[2023-07-21] MEDS: NEURONTIN 300 MG PO (21:34)
[2023-07-22] VITALS (10 sets, daily range): BP systolic 97–161; BP diastolic 52–95
[2023-07-22] MEDS: STERILE WATER FOR INJECTION 10 ML IV ×4 (02:17→20:14)
[2023-07-22] MEDS: MERREM 500 MG IV ×4 (02:17→20:14)
[2023-07-22 04:58] LABS: Hemoglobin 7.5 g/dL (12.0-16.0); Mean Corp Hgb Conc. 32.6 g/dL (33.0-37.0); Mean Corpuscular Hgb 29.5 pg (27.0-31.0); Mean Corpuscular Volume 90.6 fL (81.0-99.0); Mean Platelet Volume 9.1 fL (7.4-10.4); Platelet Count 311 10^3/uL (130-400); Red Blood Cell Count 2.54 10^6/uL (4.20-5.40); Red Cell Dist. Width 13.9 % (11.5-14.5); White Blood Cell Count 6.8 10^3/uL (4.8-10.8)
[2023-07-22 05:15] LABS: Blood Urea Nitrogen 15 mg/dl (7-17); Calcium 8.4 mg/dl (8.4-10.2); Carbon Dioxide 29 mmol/L (22-30); Chloride 103 mmol/L (98-107); Estimated Creatinine Clearance 90 ml/min; Glucose 85 mg/dl (70-99); Potassium 4.1 mmol/L (3.5-5.1); Sodium 137 mmol/L (135-145); eGFR > 60.00
[2023-07-22] MEDS: VANCOCIN 200 IV ×2 (05:39→16:53)
--- NOTE | 2023-07-22 07:43 | W.PN.UPDATE ---
Update Note
Progress Note Update
Pt in bathroom this morning and I just spoke w. her through the door.
She reports increased pain but I'm very encouraged to see inflamm labs continuing to decrease nicely, crp 54 and there is no evidence of SONIYA from the abx instilled into the cement.
Since she is ambulatory I doubt any significant bone-related complication occuredto explain the increased pain.
I asked nurse to change bandage yesterday but she says it wasn't done so I asked teaching nurse and nursing students to do it.
Plan for hopeful DC today, fu in office 2 weeks for staple removal. Weekly or biweekly SED/CRP will be very helpful to track progress of infxn treatment.
[2023-07-22] MEDS: SYMBICORT 80/4.5 MCG INHALER 2 PUFF INH ×2 (07:59→20:48)
[2023-07-22] MEDS: FLUSH (NSS) 1 FLUSH IV (08:09)
--- NOTE | 2023-07-22 08:32 | PHA.VAN.FU ---
Vancomycin Assessment / Plan
- Assessment
Renal Function: Stable
WBC's are: WNL
In the past 24 hrs, patient has been: Afebrile
Concomitant Antimicrobials: meropenem
- Dosing Plan
Continue: Vanc 1000mg Q12H
- Monitoring Plan
Level(s) appropriate: Recheck trough at minimum of weekly intervals, Repeat sooner for changes in renal function or clinical status
Next Level Due (Date): ~07/26
Tentative stop date 07/27 - can consider continuing present dose without further levels
- Follow Up
Pharmacy will continue to follow.
Vancomycin Follow UP
- -
Patient Age: 77
Patient Sex: Female
Vancomycin Day #: 6
Indication: Bone And Joint
Requesting Provider: Dr. Ariza
Pertinent Antimicrobial Allergies:
levofloxacin - joint swelling/tenderness
Height / Weight:
Height 5 ft 6 in
Actual Weight 90.718 kg
IBW in k.3
Adjusted BW in k.8
Pertinent Past Medical History: BMI ~32, recent R. VIKTORIYA
- Vital Signs / Lab Results
Temp Pulse Resp BP Pulse Ox
98.0 F 77 18 141/56 96
07/22/23 02:47 07/22/23 08:08 07/22/23 08:08 07/22/23 02:47 07/22/23 08:08
Lab Results - Hematology
07/20/23 07/21/23 07/22/23
05:46 06:22 04:29
WBC 7.5 7.2 6.8
Lab Results - Chemistry
07/20/23 07/21/23 07/22/23
05:46 06:22 04:29
BUN 15 14 15
Creatinine 0.6 0.5 L 0.5 L
Estimated Creat Clear 90 90 90
Microbiology Results
07/17/23 13:15 Blood Culture - Preliminary
Blood/Venous No Growth in 4 days- Final report to follow
07/17/23 13:15 Blood Culture - Preliminary
Blood/Venous No Growth in 4 days- Final report to follow
07/18/23 09:30 Anaerobic Culture - Preliminary
Hip - Right Culture pending. Anaerobic cultures are examined after 3
days incubation. Additional information to follow.
07/18/23 09:30 Anaerobic Culture - Preliminary
Hip - Right Culture pending. Anaerobic cultures are examined after 3
days incubation. Additional information to follow.
07/18/23 09:30 Anaerobic Culture - Preliminary
Hip - Right NO ANAEROBES ISOLATED
07/18/23 09:30 Tissue Culture - Preliminary
Hip - Right Pseudomonas aeruginosa
Gram Stain - Preliminary
07/18/23 09:30 Tissue Culture - Final
Hip - Right Pseudomonas aeruginosa
Gram Stain - Final
07/18/23 09:30 Tissue Culture - Preliminary
Hip - Right No Growth After 72 Hours
Gram Stain - Preliminary
07/18/23 09:30 Tissue Culture - Preliminary
Hip - Right No Growth After 72 Hours
Gram Stain - Preliminary
07/18/23 09:30 Body Fluid Culture - Final
Joint Fluid Pseudomonas aeruginosa
Gram Stain - Final
07/18/23 09:30 Tissue Culture - Final
Hip - Right Pseudomonas aeruginosa
Gram Stain - Final
Therapeutic Drug Monitoring
Vancomycin Peak 22.3 ug/ml (18-26) 07/19/23 23:48
Vancomycin Trough 15.5 ug/ml (5-20) 07/20/23 05:46
--- NOTE | 2023-07-22 08:58 | W.PN.HOSP.TC ---
Today's Communication/Plan
-
see A/P
Assessment / Plan
Assessment / Plan
HPI: 77 yo who is 6 weeks s/p R VIKTORIYA, has history of recurrent UTI, HTN, anemia and pAF not anticoagulated who came in from ortho clinic in setting of worsening right hip pain/tenderness and swelling s/p athrocentesis that was equivocal for an
infection but with negative cultures to date. She was started on oral antibiotics for an UTI 4 days [employer] which was prior to the hip arthrocentesis and was found to have ESBL Klebsiella on cultures of the urine.
She remained mildly symptomatic with urinary frequency. No obvious complications in terms of obstructing stones. No pyelo on CT scan or exam.
A/P:
# UTI with ESBL Klebsiella
No pyelo but urinary symptoms remain with concern for hematogenous seeding of right hip / prosthesis
Blood Cx negative
Appreciate ID input, continue Merrem as noted below
# Right hip prosthetic joint infection
# Recent right VIKTORIYA 6 weeks [employer]
Wound Cx with Proteus, Pseudomonas, moderate diphtheroids
Appreciate ID & orthopedic surgery input, status post right hip revision 07/17
Tissue culture with pansensitive Pseudomonas
Continue Merrem plan for 6 weeks of therapy 07/14-08/24, also vancomycin tentatively for 2 weeks 07/14-07/27
PICC ordered
Appreciate ID
Follow up with Ortho in 2 weeks for staple removal.
# Acute blood loss/post op anemia
Hgb was at 6.7, Transfused 1 unit PRBC 07/19, today Hgb at 7.5, will give additional unit today prior to DC
# Paroxysmal atrial fibrillation, status post PVI
Currently in normal sinus rhythm
Not on anticoagulation due to history of GI bleed
Rate controlled without any beta-blockers
# Bilateral LE swelling - swelling since surgery.
US negative for BL LE DVT
lasix 40 IV once after transfusion today
# Mild Hyponatremia, resolved
# History of orthostatic hypotension
Continue midodrine 2.5 mg twice a day with holding parameter
# History of breast cancer status post radiation
# History of lung cancer status post left lower lobectomy
# likely vulvovaginitis
started trial of clotrimazole cream
vulvovaginitis has improved
DVT prophylaxis�subcu Lovenox
Full Code
DW RN
Anticipated Discharge: Within 24 hours
Subjective/Interval History
-
Date of Service: July 22, 2023
Objective Data
-
Labs:
Laboratory Results
07/22/23
04:29
WBC 6.8
Hgb 7.5 L
Hct 23.0 L
Plt Count 311
Sodium 137
Potassium 4.1
Chloride 103
Carbon Dioxide 29
BUN 15
Creatinine 0.5 L
Glucose 85
Calcium 8.4
Vital Signs:
Vital Signs
Temp Pulse Resp BP Pulse Ox
36.7 C 59 16 157/55 98
07/22/23 08:41 07/22/23 08:41 07/22/23 08:41 07/22/23 08:41 07/22/23 08:41
I&O
07/21/23 07/22/23 07/23/23
06:59 06:59 06:59
Intake Total 890 / 890 900 / 900
Output Total 120 / 120
Balance 890 / 890 780 / 780
Review of Systems
-
All other systems: Reviewed and negative
Physical Exam
-
General: Well Developed, Well Nourished, No Apparent Distress, Comfortable, Conversant and Appears Chronically Ill; Negative Respiratory Distress
HEENT: Normocephalic, Atraumatic, Nose Appears Normal and Ears Appear Normal; Negative Oxygen
Respiratory: Clear to Auscultation and Non Labored Respirations; Negative Accessory Resp Muscle Use
Cardiac: Regular Rhythm and S1/S2
GI: Soft, Nontender, Nondistended and Normal Bowel Sounds
Musculoskeletal: Edema, Right Lower Extrem and Edema, Left Lower Extrem
Skin: Warm and Dry
Neuro: Awake, Alert and Oriented
Psych: Calm and Intact Judgement/Insight
Data Reviewed
-
Labs: Labs Reviewed by me
[2023-07-22] MEDS: NON-FORMULARY ITEM 1 DROP BOTH EYES ×2 (09:44→20:13)
[2023-07-22] MEDS: COLACE PO ×2 (09:45→20:14)
[2023-07-22] MEDS: LOTRIMIN 1% CREAM 1 APPLIC TOPICAL ×2 (09:45→20:13)
[2023-07-22] MEDS: MIRALAX PO ×2 (09:46→20:14)
[2023-07-22] MEDS: RYTHMOL 150 MG PO ×2 (09:47→20:12)
[2023-07-22] MEDS: ProAmatine PO ×2 (09:47→20:18)
[2023-07-22] MEDS: TYLENOL 1000 MG PO ×3 (09:48→21:38)
[2023-07-22] MEDS: SENOKOT 8.59999999999999964 MG PO (09:48)
[2023-07-22] MEDS: ZOLOFT 50 MG PO ×2 (09:49→20:12)
[2023-07-22] MEDS: NON-FORMULARY ITEM 75 MG PO (09:49)
[2023-07-22] MEDS: FLUSH (NSS) 2 FLUSH IV ×2 (10:34→11:49)
[2023-07-22] MEDS: DILAUDID 0.5 MG IV (11:47)
--- NOTE | 2023-07-22 12:04 | W.PN.ORTHO ---
Today's Communication / Plan
-
PT/OT
Aspirin for DVT prophylactics
Observe hemoglobin
Continue trending inflammatory markers which are coming down
Antibiotics per infectious disease
shelter facility once medically stable
Orthopedics to sign off for now
Follow-up with orthopedics 2 weeks to check progress
Assessment
.
Dressing:
Clean, dry and intact.
Plan
.
Surgery / Date: Right VIKTORIYA revision/July 27 (Debbie)
DVT Prophylaxis: Aspirin
Activity:
Out of bed.
PT/OT
Discharge Plan: SNF
Subjective
.
.:
Late entry due to difficulty logging into [employer]. Patient seen July 22, 2023 at 6:45 AM.
Patient resting comfortably.
Vital Signs and Labs
.
Vital Signs and Labs:
Lab Results
07/22/23 04:29
07/22/23 04:29
Temp Pulse Resp BP Pulse Ox
98.1 F 75 16 136/54 97
07/22/23 11:33 07/22/23 11:33 07/22/23 11:33 07/22/23 11:33 07/22/23 11:33
PT 14.2 Sec (11.4-14.6) 07/17/23 13:15
INR 1.12 07/17/23 13:15
--- NOTE | 2023-07-22 15:21 | CM ---
Addendum entered by Alexa Chappell RN 07/22/23 16:06:
Reviewed the chart notes and spoke with the patient at the bedside. Patient received 1 unit PRBC for Hgb 7.5. Discussed other facilities in area that may be able to accommodate IV abx. Patient agreeable to referral being sent to [facility].
Original Note:
Reviewed the charr notes. [facility] unable accept to due cost of IV abx.
[2023-07-22] MEDS: LASIX 40 MG IV (16:51)
[2023-07-22] MEDS: LOVENOX 40 MG SC (16:54)
--- NOTE | 2023-07-22 16:58 | W.PN.ID1 ---
Date of Service
Date of Service: July 22, 2023
Today's Communication
- continue meropenem dose can be switched to 1 gm Q8hrs when approaching discharge - plan for 6 weeks of therapy 07/14-08/24
- continue vancomycin tentatively for 2 weeks 07/14-07/27 - could be extended if diptheroid seen in OR culture
- PICC
- agree with clotrimazole
- follow up in 4-5 weeks to further discuss suppression; Dr Perera did reach out and let me know he prefers suppression in this case
Assessment / Plan
Surgical Site Infection
Early PJI
vulvovaginitis
- blood cultures no growth to date
- OR cultures 4 sets with moderate Pseudomonas
- wound culture from the ER notable for proteus, pseudomonas (both relatively sensitive) and moderate diptheroids; the urine is notable for an EBSL Kleb pneumoniae - a third isolate
- continue meropenem dose can be switched to 1 gm Q8hrs when approaching discharge - plan for 6 weeks of therapy 07/14-08/24
- continue vancomycin tentatively for 2 weeks 07/14-07/27 - could be extended if diptheroid seen in OR culture
- script given to high risk case manager and on chart
- PICC
- agree with clotrimazole
- follow up in 4-5 weeks to further discuss suppression; Dr Perera did reach out and let me know he prefers suppression in this case
Chief Complaint
-: Other (PJI, surgical site infection)
Subjective / Review of Systems
afebrile
bp stable
without leukocytosis, cr stable
reviewed OR cultures
no new complaints
Vital Signs / Physical Exam
Vital Signs
Vital Signs
Temp Pulse Resp BP Pulse Ox
98.4 F 64 18 155/61 98
07/22/23 16:05 07/22/23 16:51 07/22/23 16:05 07/22/23 16:51 07/22/23 16:05
Physical Exam
Constitutional: No Acute Distress
Cardiovascular: Regular Rate and S1/S2; Negative Murmur or Rub
Pulmonary: Clear and Symmetric; Negative Wheezes or Rales
Gastrointestinal: Soft, Non Tender, Non Distended and Normal Bowel Sounds
Skin: Warm and Dry; Negative Rash or Jaundice
Lines: PICC
Objective Data
Lab Data
Lab Results
07/22/23 04:29
07/22/23 04:29
ESR Cancelled 07/21/23 08:00
PT 14.2 Sec (11.4-14.6) 07/17/23 13:15
INR 1.12 07/17/23 13:15
APTT 36.4 Sec (23.4-35.0) H 07/17/23 13:15
Estimated Creat Clear 90 ml/min 07/22/23 04:29
Lactic Acid Cancelled 07/17/23 16:45
Total Bilirubin 0.8 mg/dl (0.2-1.3) 07/17/23 13:15
AST 21 U/L (14-36) 07/17/23 13:15
ALT 12 U/L (0-35) 07/17/23 13:15
Alkaline Phosphatase 119 U/L (38-126) 07/17/23 13:15
C-Reactive Protein 54.70 mg/L (0.0-10.00) H 07/22/23 04:29
Most recent labs reviewed.
Micro Results:
07/17/23 13:15 Blood Culture - Final
Blood/Venous No Growth - Final Report
07/17/23 13:15 Blood Culture - Final
Blood/Venous No Growth - Final Report
07/18/23 09:30 Anaerobic Culture - Preliminary
Hip - Right Culture pending. Anaerobic cultures are examined after 3
days incubation. Additional information to follow.
07/18/23 09:30 Anaerobic Culture - Preliminary
Hip - Right Culture pending. Anaerobic cultures are examined after 3
days incubation. Additional information to follow.
07/18/23 09:30 Anaerobic Culture - Preliminary
Hip - Right NO ANAEROBES ISOLATED
07/18/23 09:30 Tissue Culture - Preliminary
Hip - Right Pseudomonas aeruginosa
Gram Stain - Preliminary
07/18/23 09:30 Tissue Culture - Final
Hip - Right Pseudomonas aeruginosa
Gram Stain - Final
07/18/23 09:30 Tissue Culture - Preliminary
Hip - Right No Growth After 72 Hours
Gram Stain - Preliminary
07/18/23 09:30 Tissue Culture - Preliminary
Hip - Right No Growth After 72 Hours
Gram Stain - Preliminary
07/18/23 09:30 Body Fluid Culture - Final
Joint Fluid Pseudomonas aeruginosa
Gram Stain - Final
07/18/23 09:30 Tissue Culture - Final
Hip - Right Pseudomonas aeruginosa
Gram Stain - Final
07/17/23 19:05 Urine Culture - Final
Urine NO GROWTH
07/18/23 11:29 Nasal Screen MRSA (PCR) - Final
Nose MRSA not detected - performed by PCR methodology.
07/17/23 18:02 Nasal Screen MRSA (PCR) - Final
Nose
[2023-07-22] MEDS: SENOKOT 17.1999999999999993 MG PO (20:13)
[2023-07-22] MEDS: DESYREL 50 MG PO (21:38)
[2023-07-22] MEDS: NEURONTIN 300 MG PO (21:38)
[2023-07-22] MEDS: ROXICODONE 5 MG PO (22:37)
[2023-07-23] VITALS (7 sets, daily range): BP systolic 130–168; BP diastolic 56–68; PULSE 75; O2SAT 99; BMI 32.3
[2023-07-23] MEDS: MERREM 500 MG IV ×4 (01:51→20:37)
[2023-07-23] MEDS: STERILE WATER FOR INJECTION 10 ML IV ×4 (01:52→20:38)
[2023-07-23] MEDS: ROXICODONE 5 MG PO ×3 (02:37→22:40)
[2023-07-23] MEDS: VANCOCIN 200 IV ×2 (05:59→17:02)
[2023-07-23 06:18] LABS: Hematocrit 26.5 % (37.0-47.0); Mean Corpuscular Hgb 30.1 pg (27.0-31.0); Mean Corpuscular Volume 88.6 fL (81.0-99.0); Mean Platelet Volume 8.9 fL (7.4-10.4); Platelet Count 336 10^3/uL (130-400); Red Blood Cell Count 2.99 10^6/uL (4.20-5.40); Red Cell Dist. Width 14.2 % (11.5-14.5); White Blood Cell Count 7.3 10^3/uL (4.8-10.8)
[2023-07-23 06:40] LABS: Blood Urea Nitrogen 13 mg/dl (7-17); Calcium 8.4 mg/dl (8.4-10.2); Carbon Dioxide 33 mmol/L (22-30); Chloride 105 mmol/L (98-107); Estimated Creatinine Clearance 90 ml/min; Glucose 84 mg/dl (70-99); Potassium 3.8 mmol/L (3.5-5.1); Sodium 138 mmol/L (135-145); eGFR > 60.00
[2023-07-23] MEDS: SYMBICORT 80/4.5 MCG INHALER 2 PUFF INH ×2 (07:39→20:20)
[2023-07-23] MEDS: COLACE 100 MG PO (09:10)
[2023-07-23] MEDS: NON-FORMULARY ITEM 1 DROP BOTH EYES (09:10)
[2023-07-23] MEDS: LOTRIMIN 1% CREAM 1 APPLIC TOPICAL ×2 (09:11→20:46)
[2023-07-23] MEDS: ProAmatine PO ×2 (09:14→20:39)
[2023-07-23] MEDS: MIRALAX PO ×2 (09:14→20:36)
[2023-07-23] MEDS: SENOKOT 17.1999999999999993 MG PO ×2 (09:15→20:38)
[2023-07-23] MEDS: RYTHMOL 150 MG PO ×2 (09:15→20:39)
[2023-07-23] MEDS: ZOLOFT 50 MG PO ×2 (09:15→20:39)
[2023-07-23] MEDS: NON-FORMULARY ITEM 75 MG PO (09:16)
[2023-07-23] MEDS: TYLENOL 1000 MG PO ×3 (09:16→22:37)
--- NOTE | 2023-07-23 10:50 | W.PN.HOSP.TC ---
Today's Communication/Plan
-
see A/P
Additional (second dose) IV lasix today
Assessment / Plan
Assessment / Plan
HPI: 77 yo who is 6 weeks s/p R VIKTORIYA, has history of recurrent UTI, HTN, anemia and pAF not anticoagulated who came in from ortho clinic in setting of worsening right hip pain/tenderness and swelling s/p athrocentesis that was equivocal for an
infection but with negative cultures to date. 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
She remained mildly symptomatic with urinary frequency. No obvious complications in terms of obstructing stones. No pyelo on CT scan or exam.
A/P:
# UTI with ESBL Klebsiella
No pyelo but urinary symptoms remain with concern for hematogenous seeding of right hip / prosthesis
Blood Cx negative
Appreciate ID input, continue Merrem as noted below
# Right hip prosthetic joint infection
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
Wound Cx with Proteus, Pseudomonas, moderate diphtheroids
Appreciate ID & orthopedic surgery input, status post right hip revision 07/17
Tissue culture with pansensitive Pseudomonas
Continue Merrem and plan for 6 weeks of therapy 07/14-08/24, also vancomycin tentatively for 2 weeks 07/14-07/27
PICC ordered and placed
Appreciate ID
Follow up with Ortho in 2 weeks for staple removal.
# Acute blood loss/post op anemia
Transfused 2 units PRBC total
# Paroxysmal atrial fibrillation, status post PVI
Currently in normal sinus rhythm
Not on anticoagulation due to history of GI bleed
Rate controlled without any beta-blockers
# Bilateral LE swelling - swelling since surgery.
US negative for BL LE DVT
IV lasix 40 mg x1 has helped with swelling, will give second dose 40 IV today
Pt states that she is on HCTZ at home PRN for leg swelling, I suggest that we switch HCTZ over to PO lasix PRN upon discharge for leg swelling
Pt requests cardiology CS while inpatient. She has an appointment with Dr Ted Calvo in August, informed pt to follow up at that appointment. She does NOT need cardiology CS inpatient at this time.
Pt verbalized understanding.
# Mild Hyponatremia, resolved
# History of orthostatic hypotension
Continue midodrine 2.5 mg twice a day with holding parameter
# History of breast cancer status post radiation
# History of lung cancer status post left lower lobectomy
# Vulvovaginitis
started trial of clotrimazole cream, vulvovaginitis has improved
DVT prophylaxis�subcu Lovenox
Full Code
DW CM
total time spent 51 min
Anticipated Discharge: Within 24 hours
Subjective/Interval History
-
Date of Service: July 23, 2023
Objective Data
-
Labs:
Laboratory Results
07/23/23
05:59
WBC 7.3
Hgb 9.0 L
Hct 26.5 L
Plt Count 336
Sodium 138
Potassium 3.8
Chloride 105
Carbon Dioxide 33 H
BUN 13
Creatinine 0.6
Glucose 84
Calcium 8.4
Vital Signs:
Vital Signs
Temp Pulse Resp BP Pulse Ox
36.7 C 66 18 155/68 97
07/23/23 07:46 07/23/23 09:14 07/23/23 07:46 07/23/23 09:14 07/23/23 07:46
I&O
07/22/23 07/23/23 07/24/23
06:59 06:59 06:59
Intake Total 900 / 900 2470 / 2470
Output Total 120 / 120 900 / 900
Balance 780 / 780 1570 / 1570
Review of Systems
-
All other systems: Reviewed and negative
Physical Exam
-
General: Well Developed, Well Nourished, No Apparent Distress, Comfortable, Conversant and Appears Chronically Ill; Negative Respiratory Distress
HEENT: Normocephalic, Atraumatic, Nose Appears Normal and Ears Appear Normal; Negative Oxygen
Respiratory: Clear to Auscultation and Non Labored Respirations; Negative Accessory Resp Muscle Use
Cardiac: Regular Rhythm and S1/S2
GI: Soft, Nontender, Nondistended and Normal Bowel Sounds
Musculoskeletal: Edema, Right Lower Extrem (improved) and Edema, Left Lower Extrem (improved)
Skin: Warm and Dry
Neuro: Awake, Alert and Oriented
Psych: Calm and Intact Judgement/Insight
Data Reviewed
-
Labs: Labs Reviewed by me
--- NOTE | 2023-07-23 10:54 | CM ---
Addendum entered by Alexa Chappell RN 07/23/23 15:54:
IMM reviewed and placed on chart.
Addendum entered by Alexa Chappell RN 07/23/23 15:14:
Messages left for [facility] admissions and [facility] admissions.
Addendum entered by Alexa Chappell RN 07/23/23 11:02:
Referral for [facility] previously sent, resent with IV abx rx attached.
Original Note:
Reviewed the chart notes and spoke with the patient at the beside. Patient requesting referral be sent to [facility]. Referral sent. [facility] accepted patient. Patient will not go to [facility]. Referral sent to [facility] at
request of patient. CM continues to be available to patient/family and is monitoring medical plan for needs at discharge.
Plan: Discharge to SNF/rehab once bed found that is acceptable to the patient.
[2023-07-23] MEDS: LASIX 40 MG IV (12:30)
--- NOTE | 2023-07-23 12:48 | PHA.VAN.FU ---
Vancomycin Assessment / Plan
- Assessment
Renal Function: Stable
WBC's are: WNL
In the past 24 hrs, patient has been: Afebrile
Concomitant Antimicrobials: Meropenem
- Dosing Plan
Continue: 1000mg Q12H
- Monitoring Plan
Level(s) appropriate: Recheck trough at minimum of weekly intervals, Repeat sooner for changes in renal function or clinical status
Next Level Due (Date): ~07/26, may consider sooner
- Follow Up
Pharmacy will continue to follow.
Vancomycin Follow UP
- -
Patient Age: 77
Patient Sex: Female
Vancomycin Day #: 7
Indication: Bone And Joint
Requesting Provider: Dr. Ariza
Pertinent Antimicrobial Allergies:
levofloxacin - joint swelling/tenderness
Height / Weight:
Height 5 ft 6 in
Actual Weight 90.718 kg
IBW in k.3
Adjusted BW in k.8
Pertinent Past Medical History: BMI ~32, recent R. VIKTORIYA
- Vital Signs / Lab Results
Temp Pulse Resp BP Pulse Ox
98.2 F 60 18 130/58 97
07/23/23 11:55 07/23/23 12:30 07/23/23 11:55 07/23/23 12:30 07/23/23 11:55
Lab Results - Hematology
07/21/23 07/22/23 07/23/23
06:22 04:29 05:59
WBC 7.2 6.8 7.3
Lab Results - Chemistry
07/21/23 07/22/23 07/23/23
06:22 04:29 05:59
BUN 14 15 13
Creatinine 0.5 L 0.5 L 0.6
Estimated Creat Clear 90 90 90
Microbiology Results
07/18/23 09:30 Anaerobic Culture - Final
Hip - Right NO ANAEROBES ISOLATED
07/18/23 09:30 Anaerobic Culture - Preliminary
Hip - Right Culture pending. Anaerobic cultures are examined after 3
days incubation. Additional information to follow.
07/18/23 09:30 Anaerobic Culture - Preliminary
Hip - Right Culture pending. Anaerobic cultures are examined after 3
days incubation. Additional information to follow.
07/17/23 13:15 Blood Culture - Final
Blood/Venous No Growth - Final Report
07/17/23 13:15 Blood Culture - Final
Blood/Venous No Growth - Final Report
07/18/23 09:30 Tissue Culture - Preliminary
Hip - Right Pseudomonas aeruginosa
Gram Stain - Preliminary
07/18/23 09:30 Tissue Culture - Final
Hip - Right Pseudomonas aeruginosa
Gram Stain - Final
07/18/23 09:30 Tissue Culture - Preliminary
Hip - Right No Growth After 72 Hours
Gram Stain - Preliminary
07/18/23 09:30 Tissue Culture - Preliminary
Hip - Right No Growth After 72 Hours
Gram Stain - Preliminary
07/18/23 09:30 Body Fluid Culture - Final
Joint Fluid Pseudomonas aeruginosa
Gram Stain - Final
Therapeutic Drug Monitoring
Vancomycin Peak 22.3 ug/ml (18-26) 07/19/23 23:48
Vancomycin Trough 15.5 ug/ml (5-20) 07/20/23 05:46
[2023-07-23] MEDS: LOVENOX 40 MG SC (17:01)
[2023-07-23] MEDS: COLACE PO (20:37)
[2023-07-23] MEDS: FLUSH (NSS) 2 FLUSH IV (20:43)
[2023-07-23] MEDS: NON-FORMULARY ITEM BOTH EYES (20:46)
[2023-07-23] MEDS: DESYREL 50 MG PO (22:37)
[2023-07-23] MEDS: NEURONTIN 300 MG PO (22:37)
[2023-07-24] VITALS (8 sets, daily range): BP systolic 96–152; BP diastolic 54–66; PULSE 56; O2SAT 96
[2023-07-24] MEDS: MERREM 500 MG IV ×4 (01:34→19:50)
[2023-07-24] MEDS: STERILE WATER FOR INJECTION 10 ML IV ×4 (01:35→19:50)
[2023-07-24] MEDS: FLUSH (NSS) 2 FLUSH IV ×3 (01:37→19:51)
[2023-07-24 04:17] LABS: Hematocrit 26.6 % (37.0-47.0); Hemoglobin 8.9 g/dL (12.0-16.0); Mean Corp Hgb Conc. 33.5 g/dL (33.0-37.0); Mean Corpuscular Hgb 30.7 pg (27.0-31.0); Mean Corpuscular Volume 91.7 fL (81.0-99.0); Mean Platelet Volume 8.7 fL (7.4-10.4); Platelet Count 308 10^3/uL (130-400); Red Cell Dist. Width 14.3 % (11.5-14.5)
[2023-07-24 04:40] LABS: Blood Urea Nitrogen 13 mg/dl (7-17); Calcium 8.4 mg/dl (8.4-10.2); Carbon Dioxide 31 mmol/L (22-30); Chloride 103 mmol/L (98-107); Estimated Creatinine Clearance 90 ml/min; Glucose 87 mg/dl (70-99); Magnesium 1.9 mg/dl (1.6-2.3); Potassium 3.6 mmol/L (3.5-5.1); Sodium 137 mmol/L (135-145); eGFR > 60.00
[2023-07-24] MEDS: VANCOCIN 200 IV ×2 (05:42→17:26)
--- NOTE | 2023-07-24 07:53 | PHA.VAN.FU ---
Vancomycin Assessment / Plan
- Assessment
Renal Function: Stable
WBC's are: Stable
In the past 24 hrs, patient has been: Afebrile
Concomitant Antimicrobials: MEROPENEM
- Dosing Plan
Continue: 1GM Q12H
- Monitoring Plan
Level(s) appropriate: Recheck trough at minimum of weekly intervals, Repeat sooner for changes in renal function or clinical status
- Follow Up
Pharmacy will continue to follow.
Vancomycin Follow UP
- -
Patient Age: 77
Patient Sex: Female
Vancomycin Day #: 8
Indication: Bone And Joint
Requesting Provider: Dr. Ariza
Pertinent Antimicrobial Allergies:
levofloxacin - joint swelling/tenderness
Height / Weight:
Height 5 ft 6 in
Actual Weight 90.718 kg
IBW in k.3
Adjusted BW in k.8
Pertinent Past Medical History: BMI ~32, recent R. VIKTORIYA
- Vital Signs / Lab Results
Temp Pulse Resp BP Pulse Ox
99 F 58 16 142/58 99
07/24/23 03:33 07/24/23 03:33 07/24/23 03:33 07/24/23 03:33 07/24/23 03:33
Lab Results - Hematology
07/22/23 07/23/23 07/24/23
04:29 05:59 04:04
WBC 6.8 7.3 7.0
Lab Results - Chemistry
07/22/23 07/23/23 07/24/23
04:29 05:59 04:04
BUN 15 13 13
Creatinine 0.5 L 0.6 0.5 L
Estimated Creat Clear 90 90 90
Microbiology Results
07/18/23 09:30 Tissue Culture - Final
Hip - Right Pseudomonas aeruginosa
Gram Stain - Final
07/18/23 09:30 Tissue Culture - Final
Hip - Right No Growth After 72 Hours
Gram Stain - Final
07/18/23 09:30 Tissue Culture - Final
Hip - Right No Growth After 72 Hours
Gram Stain - Final
07/18/23 09:30 Anaerobic Culture - Final
Hip - Right Prevotella species
07/18/23 09:30 Anaerobic Culture - Final
Hip - Right Prevotella species
07/18/23 09:30 Anaerobic Culture - Final
Hip - Right NO ANAEROBES ISOLATED
07/17/23 13:15 Blood Culture - Final
Blood/Venous No Growth - Final Report
07/17/23 13:15 Blood Culture - Final
Blood/Venous No Growth - Final Report
Therapeutic Drug Monitoring
Vancomycin Peak 22.3 ug/ml (18-26) 07/19/23 23:48
Vancomycin Trough 15.5 ug/ml (5-20) 07/20/23 05:46
[2023-07-24] MEDS: SYMBICORT 80/4.5 MCG INHALER 2 PUFF INH ×2 (08:31→20:45)
[2023-07-24] MEDS: COLACE PO ×2 (09:03→19:44)
[2023-07-24] MEDS: ProAmatine PO (09:03)
[2023-07-24] MEDS: MIRALAX PO ×2 (09:03→19:51)
[2023-07-24] MEDS: LOTRIMIN 1% CREAM 1 APPLIC TOPICAL ×2 (09:06→19:58)
[2023-07-24] MEDS: NON-FORMULARY ITEM 75 MG PO (09:07)
[2023-07-24] MEDS: TYLENOL 1000 MG PO ×3 (09:07→22:28)
[2023-07-24] MEDS: NON-FORMULARY ITEM BOTH EYES ×2 (09:08→20:00)
[2023-07-24] MEDS: ZOLOFT 50 MG PO ×2 (09:08→19:50)
[2023-07-24] MEDS: SENOKOT PO (09:08)
[2023-07-24] MEDS: RYTHMOL 150 MG PO ×2 (09:09→19:49)
[2023-07-24] MEDS: KCL 40 MEQ PO (09:10)
--- NOTE | 2023-07-24 09:23 | W.PN.HOSP.TC ---
Today's Communication/Plan
-
Pending SNF
Assessment / Plan
Assessment / Plan
HPI: 77 yo who is 6 weeks s/p R VIKTORIYA, has history of recurrent UTI, HTN, anemia and pAF not anticoagulated who came in from ortho clinic in setting of worsening right hip pain/tenderness and swelling s/p athrocentesis that was equivocal for an
infection but with negative cultures to date. 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
She remained mildly symptomatic with urinary frequency. No obvious complications in terms of obstructing stones. No pyelo on CT scan or exam.
A/P:
# UTI with ESBL Klebsiella
No pyelo but urinary symptoms remain with concern for hematogenous seeding of right hip / prosthesis
Blood Cx negative
Appreciate ID input, continue Merrem as noted below
# Right hip prosthetic joint infection
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
Wound Cx with Proteus, Pseudomonas, moderate diphtheroids
Appreciate ID & orthopedic surgery input, status post right hip revision 07/17
Tissue culture with pansensitive Pseudomonas
Continue Merrem and plan for 6 weeks of therapy 07/14-08/24, also vancomycin tentatively for 2 weeks 07/14-07/27
PICC ordered and placed
Appreciate ID
Follow up with Ortho in 2 weeks for staple removal
# Acute blood loss/post op anemia
Transfused 2 units PRBC total
# Paroxysmal atrial fibrillation, status post PVI
Currently in normal sinus rhythm
Not on anticoagulation due to history of GI bleed
Rate controlled without any beta-blockers
# Bilateral LE swelling - swelling since surgery.
US negative for BL LE DVT
IV lasix 40 mg x1 has helped with swelling, will give second dose 40 IV today
Pt states that she is on HCTZ at home PRN for leg swelling, I suggest that we switch HCTZ over to PO lasix PRN upon discharge for leg swelling
Pt requests cardiology CS while inpatient. She has an appointment with Dr Ted Calvo in August, informed pt to follow up at that appointment. She does NOT need cardiology CS inpatient at this time. Pt verbalized understanding.
# Mild Hyponatremia, resolved
# History of orthostatic hypotension
Continue midodrine 2.5 mg twice a day with holding parameter
# History of breast cancer status post radiation
# History of lung cancer status post left lower lobectomy
# Vulvovaginitis
started trial of clotrimazole cream, vulvovaginitis has improved
DVT prophylaxis�subcu Lovenox
Full Code
DW CM
Anticipated Discharge: 24 - 48 hours
Subjective/Interval History
-
Date of Service: July 24, 2023
Objective Data
-
Labs:
Laboratory Results
07/24/23
04:04
WBC 7.0
Hgb 8.9 L
Hct 26.6 L
Plt Count 308
Sodium 137
Potassium 3.6
Chloride 103
Carbon Dioxide 31 H
BUN 13
Creatinine 0.5 L
Glucose 87
Calcium 8.4
Vital Signs:
Vital Signs
Temp Pulse Resp BP Pulse Ox
36.7 C 60 16 152/66 98
07/24/23 07:50 07/24/23 08:36 07/24/23 08:36 07/24/23 09:03 07/24/23 08:36
I&O
07/23/23 07/24/23 07/25/23
06:59 06:59 06:59
Intake Total 2470 / 2470 1160 / 1160
Output Total 900 / 900 1000 / 1000
Balance 1570 / 1570 160 / 160
Review of Systems
-
All other systems: Reviewed and negative
Physical Exam
-
General: Well Developed, Well Nourished, No Apparent Distress, Comfortable, Conversant and Appears Chronically Ill; Negative Respiratory Distress
HEENT: Normocephalic, Atraumatic, Nose Appears Normal and Ears Appear Normal; Negative Oxygen
Respiratory: Clear to Auscultation and Non Labored Respirations; Negative Accessory Resp Muscle Use
Cardiac: Regular Rhythm and S1/S2
GI: Soft, Nontender, Nondistended and Normal Bowel Sounds
Musculoskeletal: Edema, Left Lower Extrem (improved); Negative Edema, Right Lower Extrem
Skin: Warm and Dry
Neuro: Awake, Alert and Oriented
Psych: Calm and Intact Judgement/Insight
Data Reviewed
-
Labs: Labs Reviewed by me
--- NOTE | 2023-07-24 11:19 | W.PN.UPDATE ---
Update Note
Progress Note Update
Patient seen and examined by orthopedic surgery today. She is resting comfortably. Patient underwent right total hip arthroplasty revision on 07/18/[address] Lewis.
PE: Directed examination of the right hip reveals sterile dry dressings intact. These were removed for further evaluation. There is a surgical incision well-approximated with skin clips intact. No active drainage, erythema, significant warmth, or
ecchymosis. Incision was sterilely cleaned with Betadine swabs and a new sterile dry dressing was applied. Able to plantarflex and dorsiflex right lower extremity. Calf is soft and nontender to palpation. Patient is neurovascularly intact
distally.
Plan: Right VIKTORIYA revision July 27 (Debbie)
- PT/OT
- WBAT RLE with use of walker for ambulatory assistance
- Aspirin for DVT prophylaxis
- Continue to monitor hemoglobin, 8.9 today.
- Continue trending inflammatory makers. ESR 62 from 07/21/2023. CRP decreased from 54.70 (07/22/2023) to 35.30 (07/24/2023). Weekly or biweekly SED/CRP will be very helpful to track progress of infection treatment.
- Antibiotic treatment per Infectious Disease.
- retirement facility once medically stable.
- Orthopedics will sign off at this time. Please reengage with any further questions or concerns.
- Patient to follow-up with Orthopedics 2 weeks post-op to check progress and for staple removal.
--- NOTE | 2023-07-24 12:53 | CM ---
Addendum entered by Kayla Almonte 07/24/23 13:01:
Of note, pt wants to add daughter Estee Arciniega [phone] to be contacted in the event spouse is unavailable or cannot be reached.
Original Note:
CM following re: d/c planning.
D/c plan is for SNF placement following hospitalization.
Pt with PICC and plan for course of IV abx via Meropenem and Vanco.
ID on board.
CM spoke with Janae at [facility], bed is available for pt tomorrow 07/24 after 3 pm.
CM updated attending.
CM met with pt and spouse at bedside to discuss d/c plan.
CM answered all questions. Pt and spouse agreeable to transfer to [facility] tomorrow after 3 pm, pending medical clearance.
COVID test ordered. Insurance cards sent to Janae as requested.
IMM signed.
RN report: [phone]

Pt and spouse educated on transport options, we discussed WC van transport and private pay cost.
They are agreeable to this option.
Goal: transfer to [facility] 07/24, pending medical clearance.
[2023-07-24 13:33] LABS: COVID-19 Antigen Negative (Negative)
[2023-07-24] MEDS: LOVENOX 40 MG SC (17:26)
[2023-07-24] MEDS: ROXICODONE 10 MG PO ×2 (17:27→22:31)
--- NOTE | 2023-07-24 19:34 | PTCARENOTE ---
pt and asked for spelling for bacteria located in hip joint. nurse pulled up screen to pronounce it and took picture instead of writing down. pt then asked for picture of medication list. nurse educated pt and on
necessity to access this information from patient portal or that they could get the information from medical records. pt then said to pct that 'he did not understand why he couldn't take a picture and stated 'is there something they are
trying to hide'. pct reported this to nurse at 1830 and nurse went in the room and again explained that it has to be accessed properly and it is to protect patients medical information and privacy. this nurse also stated it is within policy and
procedure and that we cannot just let family members take pictures of computer screens. family members now agreeable and understands this is the proper way of receiving medical information.
pt stated he wanted the information to send to his daughters, father in law who also works in infectious disease.
[2023-07-24] MEDS: ProAmatine 2.5 MG PO (19:46)
[2023-07-24] MEDS: SENOKOT 17.1999999999999993 MG PO (20:02)
[2023-07-24] MEDS: NON-FORMULARY ITEM 1 DROP BOTH EYES (20:37)
[2023-07-24] MEDS: DESYREL PO (22:28)
[2023-07-24] MEDS: NEURONTIN 300 MG PO (22:28)
[2023-07-24] MEDS: DESYREL 50 MG PO (23:45)
[2023-07-25] MEDS: MERREM 500 MG IV ×4 (01:22→20:13)
[2023-07-25] MEDS: FLUSH (NSS) 2 FLUSH IV ×2 (01:24→05:20)
[2023-07-25] MEDS: STERILE WATER FOR INJECTION 10 ML IV ×4 (01:25→20:13)
[2023-07-25 04:40] LABS: Hemoglobin 8.9 g/dL (12.0-16.0); Mean Corpuscular Hgb 29.6 pg (27.0-31.0); Mean Corpuscular Volume 89.7 fL (81.0-99.0); Mean Platelet Volume 8.8 fL (7.4-10.4); Platelet Count 335 10^3/uL (130-400); Red Blood Cell Count 3.01 10^6/uL (4.20-5.40); Red Cell Dist. Width 14.2 % (11.5-14.5); White Blood Cell Count 7.6 10^3/uL (4.8-10.8)
[2023-07-25 05:05] LABS: Blood Urea Nitrogen 15 mg/dl (7-17); Calcium 8.3 mg/dl (8.4-10.2); Carbon Dioxide 29 mmol/L (22-30); Chloride 108 mmol/L (98-107); Estimated Creatinine Clearance 90 ml/min; Glucose 85 mg/dl (70-99); Sodium 136 mmol/L (135-145); eGFR > 60.00
[2023-07-25] MEDS: VANCOCIN 200 IV ×2 (05:20→16:36)
[2023-07-25] MEDS: ROXICODONE 10 MG PO ×2 (06:28→23:21)
[2023-07-25 07:45] VITALS: BP 147/66
[2023-07-25 08:38] VITALS: BP 147/66
--- NOTE | 2023-07-25 09:05 | W.PN.HOSP.TC ---
Addendum entered and electronically signed by Kalli Urrutia MD 07/25/23 15:27:
total DC time 40 min
Original Note:
Today's Communication/Plan
-
for SNF today
Assessment / Plan
Assessment / Plan
HPI: 77 yo who is 6 weeks s/p R VIKTORIYA, has history of recurrent UTI, HTN, anemia and pAF not anticoagulated who came in from ortho clinic in setting of worsening right hip pain/tenderness and swelling s/p athrocentesis that was equivocal for an
infection but with negative cultures to date. 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
She remained mildly symptomatic with urinary frequency. No obvious complications in terms of obstructing stones. No pyelo on CT scan or exam.
A/P:
# UTI with ESBL Klebsiella
No pyelo but urinary symptoms remain with concern for hematogenous seeding of right hip / prosthesis
Blood Cx negative
Appreciate ID input, continue Merrem as noted below
# Right hip prosthetic joint infection
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
Wound Cx with Proteus, Pseudomonas, moderate diphtheroids
Appreciate ID & orthopedic surgery input, status post right hip revision 07/17
Tissue culture with pansensitive Pseudomonas
Continue Merrem and plan for 6 weeks of therapy 07/14-08/24, also vancomycin tentatively for 2 weeks 07/14-07/27
PICC ordered and placed
Appreciate ID
Follow up with Ortho in 2 weeks for staple removal
# Acute blood loss/post op anemia
Transfused 2 units PRBC total
# Paroxysmal atrial fibrillation, status post PVI
Currently in normal sinus rhythm
Not on anticoagulation due to history of GI bleed
Rate controlled without any beta-blockers
# Bilateral LE swelling - swelling since surgery.
US negative for BL LE DVT
IV lasix 40 mg x1 has helped with swelling, will give second dose 40 IV today
Pt states that she is on HCTZ at home PRN for leg swelling, I suggest that we switch HCTZ over to PO lasix PRN upon discharge for leg swelling
Pt requests cardiology CS while inpatient. She has an appointment with Dr Ted Calvo in August, informed pt to follow up at that appointment. She does NOT need cardiology CS inpatient at this time. Pt verbalized understanding.
# Mild Hyponatremia, resolved
# History of orthostatic hypotension
Continue midodrine 2.5 mg twice a day with holding parameter
# History of breast cancer status post radiation
# History of lung cancer status post left lower lobectomy
# Vulvovaginitis
started trial of clotrimazole cream, vulvovaginitis has improved
DVT prophylaxis�subcu Lovenox
Full Code
DW CM
Anticipated Discharge: Today
Subjective/Interval History
-
Date of Service: July 25, 2023
Objective Data
-
Labs:
Laboratory Results
07/25/23 07/25/23
04:30 04:31
WBC 7.6
Hgb 8.9 L
Hct 27.0 L
Plt Count 335
Sodium 136
Potassium 4.0
Chloride 108 H
Carbon Dioxide 29
BUN 15
Creatinine 0.6
Glucose 85
Calcium 8.3 L
Vital Signs:
Vital Signs
Temp Pulse Resp BP Pulse Ox
36.7 C 60 18 147/66 99
07/25/23 08:38 07/25/23 08:38 07/25/23 08:38 07/25/23 08:38 07/25/23 08:38
I&O
07/24/23 07/25/23 07/26/23
06:59 06:59 06:59
Intake Total 1160 / 1160 1300 / 1300
Output Total 1000 / 1000
Balance 160 / 160 1300 / 1300
Review of Systems
-
All other systems: Reviewed and negative
Physical Exam
-
General: Well Developed, Well Nourished, No Apparent Distress, Comfortable, Conversant and Appears Chronically Ill; Negative Respiratory Distress
HEENT: Normocephalic, Atraumatic, Nose Appears Normal and Ears Appear Normal; Negative Oxygen
Respiratory: Clear to Auscultation and Non Labored Respirations; Negative Accessory Resp Muscle Use
Cardiac: Regular Rhythm and S1/S2
GI: Soft, Nontender, Nondistended and Normal Bowel Sounds
Musculoskeletal: Edema, Left Lower Extrem (improved); Negative Edema, Right Lower Extrem
Skin: Warm and Dry
Neuro: Awake, Alert and Oriented
Psych: Calm and Intact Judgement/Insight
Data Reviewed
-
Labs: Labs Reviewed by me
[2023-07-25] MEDS: SYMBICORT 80/4.5 MCG INHALER 2 PUFF INH ×2 (09:07→20:02)
--- NOTE | 2023-07-25 09:14 | PHA.VAN.FU ---
Vancomycin Assessment / Plan
- Assessment
Renal Function: Stable
WBC's are: WNL
In the past 24 hrs, patient has been: Afebrile
Concomitant Antimicrobials: MEROPENEM
- Dosing Plan
Continue: 1000MG Q12H
- Monitoring Plan
Level(s) appropriate: Recheck trough at minimum of weekly intervals, Repeat sooner for changes in renal function or clinical status
- Follow Up
Pharmacy will continue to follow.
Vancomycin Follow UP
- -
Patient Age: 77
Patient Sex: Female
Vancomycin Day #: 9
Indication: Bone And Joint
Requesting Provider: Dr. Ariza
Pertinent Antimicrobial Allergies:
levofloxacin - joint swelling/tenderness
Height / Weight:
Height 5 ft 6 in
Actual Weight 90.718 kg
IBW in k.3
Adjusted BW in k.8
Pertinent Past Medical History: BMI ~32, recent R. VIKTORIYA
- Vital Signs / Lab Results
Temp Pulse Resp BP Pulse Ox
98.1 F 57 18 147/66 96
07/25/23 08:38 07/25/23 09:11 07/25/23 09:11 07/25/23 08:38 07/25/23 09:11
Lab Results - Hematology
07/23/23 07/24/23 07/25/23
05:59 04:04 04:30
WBC 7.3 7.0 7.6
Lab Results - Chemistry
07/23/23 07/24/23 07/25/23
05:59 04:04 04:31
BUN 13 13 15
Creatinine 0.6 0.5 L 0.6
Estimated Creat Clear 90 90 90
Microbiology Results
07/18/23 09:30 Tissue Culture - Final
Hip - Right Pseudomonas aeruginosa
Gram Stain - Final
07/18/23 09:30 Tissue Culture - Final
Hip - Right No Growth After 72 Hours
Gram Stain - Final
07/18/23 09:30 Tissue Culture - Final
Hip - Right No Growth After 72 Hours
Gram Stain - Final
07/18/23 09:30 Anaerobic Culture - Final
Hip - Right Prevotella species
07/18/23 09:30 Anaerobic Culture - Final
Hip - Right Prevotella species
07/18/23 09:30 Anaerobic Culture - Final
Hip - Right NO ANAEROBES ISOLATED
Therapeutic Drug Monitoring
Vancomycin Peak 22.3 ug/ml (18-26) 07/19/23 23:48
Vancomycin Trough 15.5 ug/ml (5-20) 07/20/23 05:46
[2023-07-25] MEDS: ProAmatine PO (09:28)
[2023-07-25] MEDS: TYLENOL 1000 MG PO ×3 (09:28→22:52)
[2023-07-25] MEDS: RYTHMOL 150 MG PO ×2 (09:29→20:14)
[2023-07-25] MEDS: ZOLOFT 50 MG PO ×2 (09:29→20:13)
[2023-07-25] MEDS: SENOKOT PO ×2 (09:30→20:13)
[2023-07-25] MEDS: MIRALAX PO ×2 (09:30→20:12)
[2023-07-25] MEDS: COLACE PO ×2 (09:31→20:12)
[2023-07-25] MEDS: NON-FORMULARY ITEM 75 MG PO (09:32)
[2023-07-25] MEDS: NON-FORMULARY ITEM 1 DROP BOTH EYES ×2 (09:33→20:15)
[2023-07-25] MEDS: LOTRIMIN 1% CREAM 1 APPLIC TOPICAL ×2 (09:33→20:18)
[2023-07-25 11:20] VITALS: BP 128/51
--- NOTE | 2023-07-25 13:44 | CM ---
Addendum entered by Alexa Chappell RN 07/25/23 16:18:
IMM placed on chart.
Original Note:
Reviewed the chart notes. Patient is discharged today to [facility]. Unfortunately, the patient will need to go by w/c van which does not operate on the weekend. Patient, spouse, attending, RN, and [facility] RN notified of the above. The
patient will transported to [facility] tomorrow. The patient's spouse has a [employer] which the patient would not be able to climb up or down safely from the cab of the [facility]. CM continues to be available to patient/family and is monitoring
medical plan for needs at discharge.
Plan: Discharge to [facility] Wednesday via w/c van.
RN report: [phone]
--- NOTE | 2023-07-25 14:46 | W.DCSUMMARY ---
Discharge Summary
Discharge Data
Date of Admission: 07/17/23
Date of Discharge: 07/25/23
-
Pending Results: No
Hospital Course
Principal Diagnosis:
Right hip prosthetic joint infection, in setting of recent Recent right total hip replacement 6 weeks ago prior to admission
Acute blood loss/post op anemia from Right hip revision 07/17
Urinary tract infection with ESBL Klebsiella
Vulvovaginitis
Chronic Diagnoses:�
History of orthostatic hypotension on midodrine 2.5 mg twice a day
History of breast cancer status post radiation
History of lung cancer status post left lower lobectomy
Paroxysmal atrial fibrillation, status post PVI. Not on anticoagulation due to history of GI bleed
Bilateral leg swelling since surgery in May 2023.
Consultations:�
Infectious disease
Orthopedic
Procedures:�
Right hip revision 07/17
Clinical course:�
This is a 77 year old female with past medical history as stated above, who presented from the ortho clinic with worsening right hip pain/tenderness and swelling, concerning for prosthetic infection. She underwent outpatient right hip arthrocentesis.
Of note, she was started with an oral antibiotic for an UTI 4 days prior to her outpatient right hip arthrocentesis. The urine culture grew ESBL Klebsiella.
Problem 1:
Right hip prosthetic joint infection.
Her wound culture grew Proteus, Pseudomonas, and moderate diphtheroids.
She underwent right hip revision on 07/17.
Her tissue culture from the hip revision was positive with pansensitive Pseudomonas.
She was treated with IV antibiotic Merrem and vancomycin during her hospital stay.
Per ID, she can continue with Merrem for 6 weeks total (07/14-08/24) and vancomycin for 2 weeks total (07/14-07/27).
She can follow up with Ortho in 2 weeks for staple removal outpatient.
Problem 2:
UTI with ESBL Klebsiella.
She can continue with Merrem as noted above.
Problem 3:
Acute blood loss/post op anemia.
She received a total of 2 units PRBC transfusion during her admission.
Her hemoglobin improved from 6.7 postop to 8.9 on the day of discharge.
Problem 4:
Bilateral lower extremities swelling since hip replacement in May 2023.
Her lower extremity ultrasound was negative for DVT.
She received IV Lasix x 2 doses during her hospital stay with, which significantly improved her lower extremity edema.
She can continue with Lasix (in place of prior to admission hydrochlorothiazide) as needed outpatient for leg swelling.
As for the rest of her medical problems, they were stable during her hospital stay.
Discharge Plan
-
Patient Disposition: [facility]/SNF
Discharge Diagnosis/Procedures: Right hip prosthetic joint infection (Tissue culture with pansensitive Pseudomonas) status post right hip revision 07/17; Recent right hip total replacement; urinary tract infection with ESBL Klebsiella
Condition: Fair
Diet: As tolerated, Low Sodium and Restrict fluids to 64 oz
Activity: As tolerated
Driving Restrictions: Not until seen by your Dr
Activity Restrictions/Additional Instructions:
Follow up with Ortho in 2 weeks for staple removal.
WBAT RLE with use of walker for ambulatory assistance; posterior hip precautions.
Referrals:
Akbar Galeana MD [Family Provider] - in less than 1 week
Magdi Lewis MD [Active] - in two weeks
Additional Discharge Medication Instructions: Continue Merrem for 6 weeks total (07/14 - 08/24).
Continue vancomycin tentatively for 2 weeks (07/14 - 07/27)
You may continue clotrimazole cream as needed for vulvovaginitis.
Take lasix as needed for leg swelling (instead of HCTZ).
Prescriptions:
New
meropenem 500 mg Recon Soln
500 mg IV Q6H Qty: 10 0RF
Rx Instructions:
Merrem 07/14-08/24
oxycodone 5 mg Tablet
5 mg PO Q4HPRN PRN (Reason: moderate pain) Qty: 7 0RF
oxycodone 10 mg Tablet
10 mg PO Q4HPRN PRN (Reason: severe pain) Qty: 7 0RF
sennosides [Senna Laxative] 8.6 mg Tablet
17.2 mg PO BID Qty: 30 0RF
vancomycin in 0.9 % sodium chl 1 gram/200 mL Piggyback
1 g IV Q12H Qty: 1200 0RF
Rx Instructions:
Vancomycin 07/14-07/27
gabapentin 300 mg Capsule
300 mg PO HS Qty: 30 0RF
furosemide [Lasix] 40 mg tablet
40 mg PO DAILY PRN (Reason: edema) Qty: 7 0RF
clotrimazole 1 % cream
1 applic topical BID Qty: 15 0RF
Continued
propafenone 150 MG tablet
150 mg PO BID
sertraline 50 MG tablet
50 mg PO BID
midodrine 2.5 mg Tablet
2.5 mg PO BID
trazodone 50 MG tablet
50 - 100 mg PO HSPRN PRN (Reason: sleep)
fluticasone furoate-vilanterol [Breo Ellipta] 100-25 mcg/dose Blister With Device
1 inh INHALATION R BID
Xiidra 5 % Dropperette
1 drp BOTH EYES BID
Gemtesa 75 mg Tablet
75 mg PO DAILY
Rx Instructions:
THIS DRUG SHOULD NOT BE TAKEN TWICE A DAY
acetaminophen [Tylenol Extra Strength] 500 mg Tablet
500 mg PO QID PRN (Reason: mild pain)
mupirocin 2 % Ointment
1 applic TOPICAL TIDPRN PRN (Reason: apply around B/L eyes)
carboxymethylcellulose sodium 1 % Drops, Liquid Gel
1 - 2 drp BOTH EYES BID PRN (Reason: eye irritation)
cranberry extract [Ellura] 200 mg Capsule
200 mg PO BID
Patient Comments:
07/14/2023, pt. ran out of this vitamin and has not taken it for awhile.
cranberry
300 mg PO BIDPRN PRN (Reason: supplement)
aspirin 325 mg tablet
325 mg PO DAILY 28 Days Qty: 28 0RF
Discontinued
hydrochlorothiazide 50 MG tablet
50 mg PO DAILYPRN PRN (Reason: SWELLING)
cefdinir 300 mg capsule
300 mg PO BID 7 Days Qty: 14 0RF
Patient Comments:
07/17/2023, pt. filled this med. on 07/14/2023 and is instructed to take one capsule BID for 7 days.
loperamide [Imodium] 2 mg Capsule
4 mg PO BIDPRN PRN (Reason: diarrhea)
ibuprofen 200 mg Tablet
400 mg PO TIDPRN PRN (Reason: mild pain)
ibuprofen 200 mg Tablet
600 mg PO TIDPRN PRN (Reason: severe pain)
gabapentin 100 mg Capsule
100 mg PO DAILY
oxycodone 5 mg Tablet
5 mg PO .SEE BELOW PRN (Reason: moderate pain)
Patient Comments:
07/17/2023, prescribed Q6HPRN but pt. uses Q4HPRN.
oxycodone 5 mg Tablet
10 mg PO .SEE BELOW PRN (Reason: severe pain)
Patient Comments:
07/17/2023, prescribed Q6HPRN but pt. uses Q4HPRN.
Discharge Orders:
Discharge Patient (As Directed); Ordered 07/25/23
Ordered By: Kalli Urrutia
Discharge Date and Time
Print Language: TURKISH
[2023-07-25 15:35] VITALS: BP 118/52
[2023-07-25] MEDS: ROXICODONE 5 MG PO (16:37)
[2023-07-25] MEDS: LOVENOX 40 MG SC (16:38)
[2023-07-25 19:34] VITALS: BP 139/57
[2023-07-25] MEDS: ProAmatine 2.5 MG PO (20:14)
[2023-07-25] MEDS: NEURONTIN 300 MG PO (22:52)
[2023-07-25] MEDS: DESYREL 50 MG PO (22:52)
[2023-07-25 23:12] VITALS: BP 132/68
[2023-07-26] MEDS: MERREM 500 MG IV ×3 (01:47→13:41)
[2023-07-26] MEDS: STERILE WATER FOR INJECTION 10 ML IV ×3 (01:47→13:41)
[2023-07-26 03:37] VITALS: BP 138/56
[2023-07-26 05:25] LABS: Hemoglobin 8.8 g/dL (12.0-16.0); Mean Corp Hgb Conc. 32.6 g/dL (33.0-37.0); Mean Corpuscular Hgb 29.5 pg (27.0-31.0); Mean Corpuscular Volume 90.6 fL (81.0-99.0); Mean Platelet Volume 8.9 fL (7.4-10.4); Platelet Count 347 10^3/uL (130-400); Red Blood Cell Count 2.98 10^6/uL (4.20-5.40); Red Cell Dist. Width 14.1 % (11.5-14.5)
[2023-07-26 06:04] LABS: Blood Urea Nitrogen 17 mg/dl (7-17); Calcium 8.4 mg/dl (8.4-10.2); Carbon Dioxide 31 mmol/L (22-30); Chloride 105 mmol/L (98-107); Estimated Creatinine Clearance 78 ml/min; Glucose 85 mg/dl (70-99); Potassium 4.1 mmol/L (3.5-5.1); Sodium 136 mmol/L (135-145); eGFR > 60.00
[2023-07-26] MEDS: VANCOCIN 200 IV (06:25)
[2023-07-26] MEDS: SYMBICORT 80/4.5 MCG INHALER 2 PUFF INH (07:32)
[2023-07-26 08:00] VITALS: BP 139/57
--- NOTE | 2023-07-26 08:04 | W.PN.UPDATE ---
Update Note
Progress Note Update
Patient was discharged to short-term rehab yesterday, but there was no transport available.
Patient seen and examined, no acute events overnight.
She remains medically stable for discharge to [facility], transport arranged today.
[2023-07-26] MEDS: MIRALAX PO (08:43)
[2023-07-26] MEDS: COLACE PO (08:43)
[2023-07-26] MEDS: RYTHMOL 150 MG PO (08:44)
[2023-07-26] MEDS: TYLENOL 1000 MG PO (08:44)
[2023-07-26] MEDS: ProAmatine 2.5 MG PO (08:44)
[2023-07-26] MEDS: ZOLOFT 50 MG PO (08:45)
[2023-07-26] MEDS: SENOKOT PO (08:46)
[2023-07-26] MEDS: NON-FORMULARY ITEM 1 DROP BOTH EYES (08:46)
[2023-07-26] MEDS: NON-FORMULARY ITEM 75 MG PO (08:46)
[2023-07-26] MEDS: LOTRIMIN 1% CREAM 1 APPLIC TOPICAL (09:33)
--- NOTE | 2023-07-26 10:35 | CM ---
Reviewed the chart notes and spoke with the patient's spouse via telephone regarding w/c van cost of $115. Provided contact information for Acute Care for payment. Patient will be transported via w/c van to [facility] today. Awaiting repeat
Covid screen required by facility. CM continues to be available to patient/family and is monitoring medical plan for needs at discharge.
Plan: Discharge to [facility] today via w/c van.
Plan: Discharge to [facility] Wednesday via w/c van.
Call report to: [phone]
Fax report to: [phone]
[2023-07-26 10:56] LABS: COVID-19 Antigen Negative (Negative)
[2023-07-26] MEDS: ROXICODONE 5 MG PO (11:22)
--- NOTE | 2023-07-26 11:26 | W.PN.ID1 ---
Date of Service
Date of Service: July 26, 2023
Today's Communication
- continue meropenem dose can be switched to 1 gm Q8hrs when approaching discharge - plan for 6 weeks of therapy 07/14-08/24
- continue vancomycin tentatively for 2 weeks 07/14-07/27 - could be extended if diptheroid seen in OR culture
- script given to case aide and on chart
- standard of care for outpatient IV antibiotic treatment is weekly labs cbc/cmp. In some cases I will choose to do ESR and CRP as well but it is not standard and biweekly esr/crp would not change my management and would not provide additional
information beyond weekly levels. ESR typically changes over weeks to months. CRP can metal mover days. Note that both of these labs are nonspecific - any inflammatory condition (viral resp illness etc) can cause fluctuations. If ESR is not run
promptly that can also effect the levels. Discussed my opinion on the utility of biweekly inflammatory markers with Raghu Pinzon via tiger text. Explained that my feeling is that the additional recommended labs would not director of program management and
that if the primary services feels that they are indicated that they would be responsible for ordering and following up on the second set each week.
Assessment / Plan
Surgical Site Infection
Early PJI
vulvovaginitis
- blood cultures no growth to date
- OR cultures 4 sets with moderate Pseudomonas, prevotella
- wound culture from the ER notable for proteus, pseudomonas (both relatively sensitive) and moderate diptheroids; the urine is notable for an EBSL Kleb pneumoniae - a third isolate
- continue meropenem dose can be switched to 1 gm Q8hrs when approaching discharge - plan for 6 weeks of therapy 07/14-08/24
- continue vancomycin tentatively for 2 weeks 07/14-07/27 - could be extended if diptheroid seen in OR culture
- script given to case aide and on chart
- standard of care for outpatient IV antibiotic treatment is weekly labs cbc/cmp. In some cases I will choose to do ESR and CRP as well but it is not standard and biweekly esr/crp would not change my management and would not provide additional
information beyond weekly levels. ESR typically changes over weeks to months. CRP can metal mover days. Note that both of these labs are nonspecific - any inflammatory condition (viral resp illness etc) can cause fluctuations. If ESR is not run
promptly that can also effect the levels. Discussed my opinion on the utility of biweekly inflammatory markers with Raghu Pinzon via tiger text. Explained that my feeling is that the additional recommended labs would not director of program management and
that if the primary services feels that they are indicated that they would be responsible for ordering and following up on the second set.
- PICC
- agree with clotrimazole
- follow up in 4-5 weeks to further discuss suppression; Dr Perera did reach out and let me know he prefers suppression in this case
Chief Complaint
-: Other (PJI, surgical site infection)
Subjective / Review of Systems
afebrile
bp stable
anaerobic cultures with prevotella; diptheroids not IDd from OR cultures
discussed plans for antibiotics and labs with patient
tolerating current therapies
Vital Signs / Physical Exam
Vital Signs
Vital Signs
Temp Pulse Resp BP Pulse Ox
98.5 F 58 18 139/57 98
07/26/23 08:00 07/26/23 08:44 07/26/23 08:00 07/26/23 08:44 07/26/23 08:00
Physical Exam
Constitutional: No Acute Distress
Cardiovascular: Regular Rate and S1/S2; Negative Murmur or Rub
Pulmonary: Clear and Symmetric; Negative Wheezes or Rales
Gastrointestinal: Non Distended
Skin: Dry; Negative Rash or Jaundice
Lines: PICC
Objective Data
Lab Data
Lab Results
07/26/23 04:49
07/26/23 04:49
ESR Cancelled 07/21/23 08:00
PT 14.2 Sec (11.4-14.6) 07/17/23 13:15
INR 1.12 07/17/23 13:15
APTT 36.4 Sec (23.4-35.0) H 07/17/23 13:15
Estimated Creat Clear 78 ml/min 07/26/23 04:49
Lactic Acid Cancelled 07/17/23 16:45
Total Bilirubin 0.8 mg/dl (0.2-1.3) 07/17/23 13:15
AST 21 U/L (14-36) 07/17/23 13:15
ALT 12 U/L (0-35) 07/17/23 13:15
Alkaline Phosphatase 119 U/L (38-126) 07/17/23 13:15
C-Reactive Protein 31.50 mg/L (0.0-10.00) H 07/25/23 04:31
Most recent labs reviewed.
Micro Results:
07/18/23 09:30 Tissue Culture - Final
Hip - Right Pseudomonas aeruginosa
Gram Stain - Final
07/18/23 09:30 Tissue Culture - Final
Hip - Right No Growth After 72 Hours
Gram Stain - Final
07/18/23 09:30 Tissue Culture - Final
Hip - Right No Growth After 72 Hours
Gram Stain - Final
07/18/23 09:30 Anaerobic Culture - Final
Hip - Right Prevotella species
07/18/23 09:30 Anaerobic Culture - Final
Hip - Right Prevotella species
07/18/23 09:30 Anaerobic Culture - Final
Hip - Right NO ANAEROBES ISOLATED
07/17/23 13:15 Blood Culture - Final
Blood/Venous No Growth - Final Report
07/17/23 13:15 Blood Culture - Final
Blood/Venous No Growth - Final Report
07/18/23 09:30 Tissue Culture - Final
Hip - Right Pseudomonas aeruginosa
Gram Stain - Final
07/18/23 09:30 Body Fluid Culture - Final
Joint Fluid Pseudomonas aeruginosa
Gram Stain - Final
07/18/23 09:30 Tissue Culture - Final
Hip - Right Pseudomonas aeruginosa
Gram Stain - Final
07/17/23 19:05 Urine Culture - Final
Urine NO GROWTH
07/18/23 11:29 Nasal Screen MRSA (PCR) - Final
Nose MRSA not detected - performed by PCR methodology.
07/17/23 18:02 Nasal Screen MRSA (PCR) - Final
Nose
Care Review
Plan reviewed with: Other Provider (Jeromy)
[2023-07-26 11:48] VITALS: BP 140/62
== END 2023-07-26 15:19 | DRG 467 ==
LOC: 2 NORTH 14:30
PROVIDERS: Internal Medicine; Physician Assistant Medical; ADMITTING PHYSICIAN Internal Medicine; ATTENDING PHYSICIAN Family Medicine; CONSULT PHYSICIAN Orthopaedic Surgery; CONSULT PHYSICIAN Student in an Organized Health Care Education/Training Program; EMERGENCY PHYSICIAN Emergency Medicine; FAMILY PHYSICIAN Internal Medicine Geriatric Medicine
PROC: 0SP90JZ Removal of Synthetic Substitute from Right Hip Joint, Open Approach (ICD-10-PCS; 2023-07-18)
PROC: 0SR9049 Replacement of Right Hip Joint with Ceramic on Polyethylene Synthetic Substitute, Cemented, Open Approach (ICD-10-PCS; 2023-07-18)
DX: T84.51XA Infection and inflammatory reaction due to internal right hip prosthesis, initial encounter (principal); D62 Acute posthemorrhagic anemia; N39.0 Urinary tract infection, site not specified; Z16.12 Extended spectrum beta lactamase (ESBL) resistance; Y83.1 Surgical operation with implant of artificial internal device as the cause of abnormal reaction of the patient, or of later complication, without mention of misadventure at the time of the procedure; I48.0 Paroxysmal atrial fibrillation; E66.9 Obesity, unspecified; B96.1 Klebsiella pneumoniae [K. pneumoniae] as the cause of diseases classified elsewhere; N76.0 Acute vaginitis; Z68.32 Body mass index [BMI] 32.0-32.9, adult
CPT/HCPCS: 36415; 71045; 73502; 80048; 80053; 80202; 81003; 81015; 83605; 83735; 84100; 85025; 85027; 85610; 85652; 85730; 86140; 86850; 86900; 86901; 86920; 87015; 87040; 87070; 87075; 87076; 87077; 87086; 87176; 87185; 87186; 87205; 87641; 87811; 89051; 93005; 93971; 94640; 96374; 96375; 96376; 97110; 97116; 97162; 97166; 97530; 97535; 99284; C1713; C1776; J2185; P9016

== ENCOUNTER 2023-11-16 17:09 | Inpatient (IN) | payer MEDICARE, SELFPAY ==
[2023-11-16] VITALS (8 sets, daily range): BP systolic 116–166; BP diastolic 57–82; BMI 18.0; BMI 27.0
--- NOTE | 2023-11-16 13:55 | ED.GENMED ---
History of Present Illness
General
Chief Complaint: Abdominal Symptoms
Source: patient, records, spouse and physician (Infectious disease physician)
Exam Limitations: none
Time Seen by Provider: 11/16/23 13:39
Nursing documentation reviewed up to this point in time: agreed with
History of Present Illness
History of Present Illness:
78-year-old female with past medical history as documented notable for distant gastric bypass surgery and recent prosthetic joint infection who presents to the emergency department for evaluation of nausea/vomiting. Patient was admitted to this
hospital 07/17/2023 until 07/25/2023 with infected right hip prosthetic joint; she underwent revision on 07/18/2023 she was treated with extended course of IV antibiotics and has been taking ciprofloxacin and metronidazole for suppressive therapy.
Patient reports that over the past few weeks she has had severe nausea and vomiting and this has been a persistent and escalating issue since. She reports that today she was having so much dry heaving and vomiting when she was not able to take
anything by mouth; she discussed with her infectious disease doctor who referred her to the emergency room. She denies any abdominal pain. She has not had any significant diarrhea. She denies any headache or neck pain/stiffness. Denies any fever
or chills. Of note she did start Ozempic 4 weeks ago last dose was 2 weeks ago and has since decided to discontinue.
Past History
Past History
ED Past Medical History: Arrthythmia, Cancer, HTN and Hypercholesterolemia
ED Past Surgical History: Appendectomy (gastric bypass.), Orthopedic and Other
Social History
Tobacco: Non-smoker
Alcohol: None
Drug: None
Personal:
Living: with family
Review of Systems
Review of Systems
All Other Systems: ROS reviewed and negative except as documented in HPI and ROS
Constitutional: Denies fever or chills
Respiratory: Denies cough or trouble breathing
Cardiac: Denies chest pain
ABD/GI: Reports nausea and vomiting; Denies abdominal pain or diarrhea
: Denies flank pain
Musculoskeletal: Denies neck pain or back pain
Neurological: Reports dizzy; Denies headache
Phy Exam
Physical Exam
Physical Exam:
General: Awake, alert, oriented x3; holding emesis bag, dry heaving
Head: Normocephalic, atraumatic
Eyes: Conjunctiva normal, sclera anicteric
Throat: Airway intact, dry mucous membrane
Neck: Trachea midline, supple without meningismus
Lungs: Clear to auscultation bilaterally, no wheezing, rales, rhonchi
Heart: Regular rate and rhythm, no murmurs, gallops, or rubs
Abd: Soft, non distended, nontender
Neuro: No gross deficits
Skin: no rash
Extremities: Warm well-perfused
Scores
Heart Failure Risk
Heart Failure Risk Score: Not Applicable
Heart Score for Chest Pain Patients
STEMI patient?: Not applicable
Withdrawal Assessment of Alcohol
Withdrawal Assessment Completed?: Not applicable
Course
Orders/Labs/Results
Orders:
Orders
11/16/23 13:44
Ondansetron Injectable [Zofran] 4 mg IV NOW STA
11/16/23 13:45
0.9% Sodium Chloride 1000 ml [Nss] 1,000 ml IV BOLUS
11/16/23 14:02
Complete Blood Count/With Diff Urgent
Comprehensive Metabolic Panel Urgent
Lipase Urgent
Magnesium Urgent
11/16/23 15:05
Electrocardiogram (*1) Urgent
Reason for Study: QTc Monitoring
EKG- Treatment ONCE
11/16/23 15:07
CR Obstruct Series W/pa Chest Urgent
Comment:
Reason For Exam: vomiting
11/16/23 15:10
Magnesium Sulfate 4 Gram/100Ml [Magnesium Sulfate] 4 gram in 100 ml IV NOW
Potassium Chloride [KCl] 40 meq 0.9% Sodium Chloride 250 ml [Nss] 250 ml IV NOW
11/16/23 15:18
Electrocardiogram (*1) Urgent
Reason for Study: QTc Monitoring
EKG- Treatment ONCE
Abnormal Lab Results
11/16/23
14:02
Hct 35.7 L %
(37.0-47.0)
RDW 15.4 H %
(11.5-14.5)
Absolute Lymphs (auto) 1.1 L 10^3/uL
(1.2-3.4)
Lymphocytes % 16.0 L %
(20.5-51.1)
Potassium 2.9 L mmol/L
(3.5-5.1)
Creatinine 1.1 H mg/dL
(0.6-1.0)
Magnesium 1.4 L mg/dl
(1.6-2.3)
AST 59 H U/L
(14-36)
11/16/23 14:02
11/16/23 14:02
Vital Signs
Initial and Last Documented VS:
Initial Vital Signs
Temp Pulse Resp BP Pulse Ox
36.7 C 71 20 166/82 98
11/16/23 13:28 11/16/23 13:28 11/16/23 13:28 11/16/23 13:28 11/16/23 13:28
Last Documented Vital Signs
Temp Pulse Resp BP Pulse Ox
36.7 C 66 16 144/58 96
11/16/23 13:28 11/16/23 15:00 11/16/23 15:00 11/16/23 15:00 11/16/23 15:00
MDM/Problems Addressed
Differential Diagnosis Includes:
Adverse drug reaction including to antibiotics versus Ozempic, gastritis/gastroenteritis, pancreatitis
MDM/Problems Addressed:
78-year-old female presents to the emergency room for nausea and vomiting for the past 3 weeks in the setting of recent suppressive treatment for prosthetic joint infection with ciprofloxacin and metronidazole as well as recent initiation of
Ozempic. Vitals significant for mild hypertension otherwise normal. Physical exam as above. Notably she denies abdominal pain and has no abdominal tenderness. Placed an IV check labs including a CBC and CMP, lipase. Check magnesium. Will check
obstruction series to evaluate for bowel obstruction but I think we can hold off on CT at this point with no reported abdominal pain and no tenderness. Suspect likely gastritis versus adverse drug reaction to Ozempic. Will treat with Zofran and
fluids to start.
Labs reviewed: CBC unremarkable, CMP significant for SONIYA with a creatinine of 1.1, hypokalemia 2.9, hypomagnesemia 1.4. Replete potassium and magnesium IV. Continue with IV fluid treatment. Awaiting obstruction series; plan likely for admission
for dehydration and electrolyte derangements in the setting of nausea and vomiting suspect secondary to gastritis versus adverse drug reaction.
Obstruction series reviewed by me no signs of bowel obstruction or other acute pathology. Will admit for continued treatment�case discussed with hospitalist.
*Radiology
Radiology exam reviewed: preliminary read by ED provider
*Pulse Oximetry
Patient hypoxic: no
*EKG
Interpreted by ED Provider?: Yes
Heart Rate: 65
Rate: normal
Rhythm: sinus
Palm: normal axis
Interval: normal interval
QRS Pattern: right bundle branch block
Ischemia: T-wave inversion (Nonspecific T wave abnormality)
*Critical Care Note
Total Time (30-74mins, 75-104mins- exclusive of procedures): Not Applicable
Data Reviewed
Review of Other/Old Records Reveals: Labs and Records
Source: patient, spouse and physician (Infectious disease physician)
Further Testing Considered But Not Given:
Considered abdominal CT as above
Patient Management
Discussion with other providers: Hospitalist (Discussed with hospitalist) and Maintenance Operator (Discussed with her infectious disease doctor who called ahead)
Escalation/DeEscalation of care consider admission/obs:
Admission indicated
ED Attending Note
-
Portions of this chart may have been created with voice recognition software.� Occasional wrong word or��sound alike� substitutions may have occurred due to the inherent limitations of voice recognition software.
Discharge Plan
Departure
Patient Disposition: Admit
Date of Disposition: 11/16/23
Time of Disposition: 15:31
Admit to doctor: Do
Presentation/result/management discussed w/ accepting MD/DO: Hospitalist
Discharge Problem:
Acute gastritis, Nausea & vomiting, Dehydration, Electrolyte abnormality
Prescriptions:
No Action
propafenone 150 MG tablet
150 mg PO BID
sertraline 50 MG tablet
50 mg PO BID
midodrine 2.5 mg Tablet
2.5 mg PO BID
trazodone 50 MG tablet
100 mg PO HSPRN PRN (Reason: sleep)
cranberry extract [Ellura] 200 mg Capsule
200 mg PO BID
gabapentin 300 mg Capsule
300 mg PO HS Qty: 30 0RF
ciprofloxacin HCl 750 mg Tablet
750 mg PO BID
metronidazole 500 mg Tablet
500 mg PO BID
diphenhydramine HCl [Benadryl] 25 mg Capsule
25 mg PO HS PRN (Reason: sleep)
nystatin 100,000 unit/gram Cream
1 applic TOPICAL BIDPRN PRN (Reason: vaginal area)
ondansetron 4 mg Tablet,Disintegrating
4 mg PO DAILY
Visbiome 112.5 billion cell Capsule
1 cap PO DAILY
Referrals:
Akbar Galeana MD [Family Provider] -
Interventions
Interventions:
*Risk Screen - Suicide Last Done: 11/16/23 14:03
*General Assessment Last Done: 11/16/23 14:03
*Neglect/Abuse Screening Last Done: 11/16/23 14:03
ED- Fall Risk Assessment Last Done: 11/16/23 14:03
*ED COVID-19 Vaccine History Last Done: 11/16/23 14:03
UG-Yornok-Exmkgzwdze Assessment Last Done: 11/16/23 14:00
Discharge Date and Time
Print Language: BULGARIAN
[2023-11-16] MEDS: ZOFRAN 4 MG IV (14:05)
[2023-11-16] MEDS: NSS 1000 IV (14:06)
[2023-11-16 14:43] LABS: % Basophils 0.4 % (0-2); % Eosinophils 0.6 % (0-6); % Immature Granulocytes 0.3 % (0-0.5); % Monocytes 8.2 % (1.7-9.3); % Neutrophils 74.5 % (42.2-75.2); Absolute Lymphocytes 1.1 10^3/uL (1.2-3.4); Absolute Monocytes 0.6 10^3/uL (0.1-0.6); Absolute Neutrophils 5.2 10^3/uL (1.4-6.5); Hematocrit 35.7 % (37.0-47.0); Hemoglobin 12.7 g/dL (12.0-16.0); Mean Corp Hgb Conc. 35.6 g/dL (33.0-37.0); Mean Corpuscular Hgb 29.3 pg (27.0-31.0); Mean Corpuscular Volume 82.3 fL (81.0-99.0); Mean Platelet Volume 10.1 fL (7.4-10.4); Nucleated Red Blood Cells % 0 %; Platelet Count 263 10^3/uL (130-400); Red Blood Cell Count 4.34 10^6/uL (4.20-5.40); Red Cell Dist. Width 15.4 % (11.5-14.5); White Blood Cell Count 6.9 10^3/uL (4.8-10.8)
[2023-11-16 14:55] LABS: ALT (SGPT) 19 U/L (0-35); AST (SGOT) 59 U/L (14-36); Albumin 4.2 g/dl (3.5-5.0); Alkaline Phosphatase 63 U/L (38-126); Blood Urea Nitrogen 9 mg/dl (7-17); Carbon Dioxide 24 mmol/L (22-30); Chloride 102 mmol/L (98-107); Glucose 99 mg/dl (70-99); Lipase 127 U/L (23-300); Magnesium 1.4 mg/dl (1.6-2.3); Potassium 2.9 mmol/L (3.5-5.1); Sodium 136 mmol/L (135-145); Total Bilirubin 0.9 mg/dl (0.2-1.3); Total Protein 6.3 g/dl (6.3-8.2); eGFR 51.75
--- NOTE | 2023-11-16 15:13 | EDRN ---
Pharmacist preparing and will send magnesium and potassium.
[2023-11-16] MEDS: KCL 270 MEQ IV (15:52)
--- NOTE | 2023-11-16 16:13 | HPS.HSE ---
Addendum entered and electronically signed by Misael Lima MD 11/16/23 17:34:
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
from ID office for persistent nausea and dry heaving. Patient completed a full course of IV antibiotics on 08/25/2023, and then transitioned to oral ciprofloxacin and Flagyl for suppression. She reports that around 09/17/2023, she started Ozempic.
Around that time, she noted that she was starting to have worsening nausea and dry heaving, with poor oral intake. She discontinued the Ozempic 3 weeks ago, but continues to have symptoms.
She is dehydrated, her magnesium is 1.4, potassium 2.9. Will treat with IV potassium, IV magnesium, IV fluids with potassium.
Discontinue ciprofloxacin and Flagyl. Consult ID.
She has QTc prolongation, 667 ms. Would avoid Zofran and other QTc prolonging agents.
She has been ordered Phenergan and Tigan as needed, repeat daily EKGs until QTc is improved.
I have personally seen and examined the patient, and agree with the plan of care as documented by PRACHI Eugene.
Advance care planning discussed, patient is a full code.
All other issues as outlined by the advanced care practitioner.
Total time spent to see the patient on the floor, examine the patient, review data and lab results, discuss treatment plan with patient, nursing staff around 77 minutes.
Original Note:
Family Physician
-
Family Physician: Akbar Galeana
Chief Complaint
-
n/v
History of Present Illness
78-year-old female with past medical history for arthritis, chronic pain syndrome, depression, breast cancer, paroxysmal atrial tachycardia, hyperlipidemia, A-fib, hypertension, lower extremities edema, UTI overactive bladder presented to us with
nausea and vomiting since she was started on Flagyl and Cipro for right prosthetic joint infection . Patient is on oral antibiotics since September. She was treated with IV Merrem until 08/24 and vanco until 07.27. since then, she noted to have n/v, poor
oral intake, which progressively got worse. stated, she might have lost 25 lbs since then.She denies any abdominal pain. She has not had any significant diarrhea. She denies any headache or neck pain/stiffness. Denies any fever or chills. Of
note she did start Ozempic 4 weeks ago last dose was 2 weeks ago and has since decided to discontinue. Patient denied chest pain or short of breath. Patient denied dysuria hematuria.
Upon arrival she was noted to have hypokalemia, hypomagnesemia and acute kidney injury. She received normal saline, IV KCl and IV mag rider in ER. Admitting for further management
Medical History
Past Medical History
Past Medical History: Reports Other
Additional Past Medical History:
Osteoarthritis
Chronic pain syndrome
Lumbar herniated disc
Depression
Breast cancer
H A-fib
Hypertension
Iron deficiency anemia
Carcinoid tumor of rectum
Overactive bladder
Restrictive lung disease
Past Surgical History: Reports Other
Additional Past Surgical History:
Rectal tumor removed
Lumpectomy
Left lower lobectomy
Knee replacement
Right hip replacement
Parathyroidectomy
Gastric bypass
Cardiac ablation
Left hip replacement
Social History
Tobacco: Former Smoker
Alcohol: Occasional
Drug: None
Personal:
Living: With Family
Family History
Family History: Not pertinent
Allergies / Home Medications
Allergies reflects when Allergies were last updated in [facility].
Home Medications with original date entered in [facility]
Allergy/Medication List:
Allergies
Allergy/AdvReac Type Severity Reaction Status Date / Time
levofloxacin [From Levaquin] Allergy Joint Verified 11/16/23 13:29
swelling/tenderness
Home Medications
propafenone 150 mg tablet 150 mg PO BID Arrhythmia 02/20/20
sertraline 50 mg tablet 50 mg PO BID Mental Health/Anxiety 02/20/20
midodrine 2.5 mg tablet 2.5 mg PO BID Blood Pressure 05/07/22
trazodone 50 mg tablet 100 mg PO HSPRN PRN sleep 05/07/22
cranberry extract 200 mg capsule (Ellura) 200 mg PO BID Supplement 07/17/23
gabapentin 300 mg capsule 300 mg PO HS #30 caps 07/25/23
Lactobac no.2-Bifidobac no.1-S. thermo 112.5 billion cell capsule (Visbiome) 1 cap PO DAILY 11/16/23
ciprofloxacin HCl 750 mg tablet 750 mg PO BID 11/16/23
diphenhydramine HCl 25 mg capsule (Benadryl) 25 mg PO HS PRN sleep 11/16/23
metronidazole 500 mg tablet 500 mg PO BID 11/16/23
nystatin 100,000 unit/gram topical cream 1 applic topical BIDPRN PRN vaginal area 11/16/23
ondansetron 4 mg disintegrating tablet 4 mg PO DAILY 11/16/23
Review of Systems
-
Constitutional: Reports Weight Loss
EENT: Reports No Symptoms
Respiratory: Reports No Symptoms
Cardiac: Reports No Symptoms
Abdomen/GI: Reports Nausea and Vomiting
: Reports No Symptoms
Musculoskeletal: Reports No Symptoms
Skin: Reports No Symptoms
Neurological: Reports No Symptoms
Endocrine: Reports No Symptoms
Hematologic/Lymphatic: Reports No Symptoms
Psych: Reports No Symptoms
Physical Exam
Vital Signs
Vital Signs
Temp Pulse Resp BP Pulse Ox
98.0 F 66 16 144/58 96
11/16/23 13:28 11/16/23 15:00 11/16/23 15:00 11/16/23 15:00 11/16/23 15:00
Physical Exam
General: Well Developed, Well Nourished and No Apparent Distress
HEENT: NormoCephalic, Moist mucous membranes and Atraumatic
Respiratory: Clear
Cardiac: S1/S2 and Regular Rhythm; No Murmur or Rub
GI: Soft, Non Tender, Non Distended and Normal Bowel Sounds; No Organomegaly
Rectal: Deferred by Provider
Musculoskeletal: No Clubbing, No Cyanosis and No Edema
Skin: No Rash
Neuro: AO x 3 and Nonfocal/grossly intact
Psych: Calm
Laboratory Results
-
11/16/23 14:02
11/16/23 14:02
Laboratory Results
Total Bilirubin 0.9 mg/dl (0.2-1.3) 11/16/23 14:02
AST 59 U/L (14-36) H 11/16/23 14:02
ALT 19 U/L (0-35) 11/16/23 14:02
Alkaline Phosphatase 63 U/L (38-126) 11/16/23 14:02
Lipase 127 U/L (23-300) 11/16/23 14:02
Data Reviewed
-
Diagnostic Radiology: Report Reviewed by me
Lab Data: Labs Reviewed by me
Impression/Plan
-
# Dehydration/electrolytes derangement in setting of gastritis versus adverse drug reaction
-K2.9, magnesium 1.4, creatinine 1.1
-Obstruction series nonobstructive bowel gas pattern.Grossly stable bilateral nonobstructing renal calculi. No definite new calculi.
-Magnesium 4 g in ER
-Patient received normal saline
-Zofran for nausea vomiting
-Patient also received PPI in ER
-Patient also received KCl 40 mEq in ER
-BMP in a.m.
-Tigan continued for nausea vomiting
-full liquid diet, advance as tolerated
# Recent right prosthetic hip infection
-hold Cipro and Flagyl
-ID consulted for suppressive therapy
# Paroxysmal atrial fibrillation, status post PVI
-Currently in normal sinus rhythm
-Propafenone continued
-Not on anticoagulate due to GI bleed
# History of orthostatic hypotension
Continue midodrine 2.5 mg twice a day with holding parameter
# History of breast cancer status post radiation
# History of lung cancer status post left lower lobectomy
# History of depression
-Trazodone and sertraline continued
DVT prophylaxis�subcu heparin
Full Code
[2023-11-16] MEDS: PROTONIX IV 40 MG IV (16:20)
[2023-11-16] MEDS: MAGNESIUM SULFATE 100 IV (16:37)
--- NOTE | 2023-11-16 16:41 | EDRN ---
New IV access started in R cephalic and potassium was moved to that site as pt was c/o burning at R wrist site. Magnesium was started in R wrist at this time.
--- NOTE | 2023-11-16 18:14 | EDRN ---
Pt OOB to commode at this time to void.
--- NOTE | 2023-11-16 18:19 | EDRN ---
Pt eating supper at this time.
--- NOTE | 2023-11-16 18:44 | EDRN ---
Pt given jose zahira to drink at this time.
[2023-11-16 19:22] LABS: Glucose - Point of Care 100 mg/dl (70-99)
[2023-11-16] MEDS: ZOLOFT 50 MG PO (21:28)
[2023-11-16] MEDS: RYTHMOL 150 MG PO (21:28)
[2023-11-16] MEDS: NEURONTIN 300 MG PO (21:28)
[2023-11-16] MEDS: NSS with KCL 20 MEQ 1000 IV (21:28)
[2023-11-16] MEDS: LOVENOX 40 MG SC (21:29)
[2023-11-16] MEDS: DESYREL 100 MG PO (21:31)
[2023-11-16] MEDS: BENADRYL 25 MG PO (22:12)
[2023-11-17] MEDS: TYLENOL 650 MG PO ×2 (00:42→22:11)
[2023-11-17 03:38] VITALS: BP 125/59
[2023-11-17 08:11] VITALS: BP 140/63
[2023-11-17] MEDS: PROTONIX IV 40 MG IV (08:31)
[2023-11-17] MEDS: NSS (PRESERVATIVE FREE) 10 ML IV (08:32)
[2023-11-17] MEDS: ProAmatine 2.5 MG PO ×2 (08:34→16:06)
[2023-11-17] MEDS: RYTHMOL 150 MG PO ×2 (08:34→20:47)
[2023-11-17] MEDS: MYCOSTATIN CREAM 1 APPLIC TOPICAL (08:34)
[2023-11-17] MEDS: ZOLOFT 50 MG PO ×2 (08:36→20:47)
[2023-11-17 09:51] LABS: Hemoglobin 12.9 g/dL (12.0-16.0); Mean Corp Hgb Conc. 33.9 g/dL (33.0-37.0); Mean Corpuscular Hgb 28.8 pg (27.0-31.0); Mean Corpuscular Volume 84.8 fL (81.0-99.0); Mean Platelet Volume 9.9 fL (7.4-10.4); Platelet Count 289 10^3/uL (130-400); Red Blood Cell Count 4.48 10^6/uL (4.20-5.40); Red Cell Dist. Width 15.8 % (11.5-14.5); White Blood Cell Count 5.5 10^3/uL (4.8-10.8)
[2023-11-17 11:04] LABS: Blood Urea Nitrogen 6 mg/dl (7-17); Calcium 8.9 mg/dl (8.4-10.2); Carbon Dioxide 23 mmol/L (22-30); Chloride 109 mmol/L (98-107); Estimated Creatinine Clearance 40 ml/min; Glucose 93 mg/dl (70-99); Magnesium 2.2 mg/dl (1.6-2.3); Potassium 3.1 mmol/L (3.5-5.1); Sodium 139 mmol/L (135-145); eGFR 51.75
[2023-11-17 11:45] VITALS: BP 129/65
[2023-11-17 12:58] LABS: Glycohemoglobin (HgbA1c) 5.1 % (4.0-5.6)
--- NOTE | 2023-11-17 13:46 | CM ---
Addendum entered by Vaishali Davila 11/17/23 15:38:
PT recommends outpatient therapy.
Original Note:
Patient seen at bedside with .
Dx: electrolyte imbalance
PMH: R hip prosthetic joint infection post R hip arthroplasty 07/18/23, anemia, Afib, recurrent UTI's, HTN
Lives with in a 3 story home. 1 step to enter, 17 steps to 2nd floor. Full bath on 1st floor.
PLOF: Independent uses a cane, currently not driving.
DME: cane, walker, shower chair, grab bars.
Has had [facility] in past and was at [facility] in July 2023 for iv antibiotics.
PCP: Michel Galeana
Pharmacy: [facility]
PLAN: Discharge when medically stable. No anticipated needs.
[2023-11-17] MEDS: KCL 40 MEQ PO ×2 (14:04→16:07)
[2023-11-17] MEDS: NSS with KCL 20 MEQ 1000 IV (14:05)
--- NOTE | 2023-11-17 14:48 | W.PN.HOSP.TC ---
Today's Communication/Plan
-
see bold
Assessment / Plan
Assessment / Plan
HPI: 78-year-old female with a past medical history of right hip prosthetic joint infection status post right hip arthroplasty revision on 07/18/2023, paroxysmal atrial fibrillation not on anticoagulation, recurrent UTIs, hypertension, and anemia was
sent from ID office for persistent nausea and dry heaving. Patient completed a full course of IV antibiotics on 08/25/2023, and then transitioned to oral ciprofloxacin and Flagyl for suppression. She reports that around 09/17/2023, she started
Ozempic. Around that time, she noted that she was starting to have worsening nausea and dry heaving, with poor oral intake. She discontinued the Ozempic 3 weeks ago, but continues to have symptoms.
#Severe nausea and dry heaving
Resolved with stopping ciprofloxacin and Flagyl
Advance to regular diet
Continue Tigan and Phenergan as needed
#History of right prosthetic hip infection
Status post right hip arthroplasty revision on 07/18/2023
Completed a full course of IV antibiotics on 08/25/2023
Was on suppressive therapy with ciprofloxacin and Flagyl
Consult ID
#Prolonged QTc
Improved, monitor with daily EKGs, avoid QT prolonging agents
#Hypokalemia
Continue to replete, recheck a.m. labs
#Hypomagnesemia
Repleted and resolved
#Paroxysmal atrial fibrillation status post PVI
Not on anticoagulation, rate controlled propafenone
#History of orthostatic hypotension
Continue midodrine 2.5 mg twice a day
#History of breast cancer status post radiation
#History of lung cancer status post left lower lobectomy
DVT prophylaxis�subcu Lovenox
Full code
Total time spent to see the patient on the floor, examine the patient, review data and lab results, discuss treatment plan with patient, nursing staff around 50 minutes.
Physical Exam
General: No acute distress
HEENT: Normocephalic, Atraumatic, EOMI, MMM
Respiratory: Clear to Auscultation bilaterally
Cardiac: Normal S1/S2, Regular Rate and Rhythm
GI: Soft, Nontender, Nondistended, Normal Bowel Sounds
Extremities: No Clubbing, Cyanosis, or Edema
Neuro: Nonfocal/Grossly Intact
Psych: Calm, Cooperative
Derm: No Visible lesions
Anticipated Discharge: Within 24 hours
Subjective/Interval History
-
Date of Service: November 17, 2023
Patient reports feeling much better. Nausea and dry heaving resolved. She is tolerating her full liquid diet. No fever.
Objective Data
-
Labs:
Laboratory Results
11/17/23
09:19
WBC 5.5
Hgb 12.9
Hct 38.0
Plt Count 289
Sodium 139
Potassium 3.1 L
Chloride 109 H
Carbon Dioxide 23
BUN 6 L
Creatinine 1.1 H
Glucose 93
Calcium 8.9
Vital Signs:
Vital Signs
Temp Pulse Resp BP Pulse Ox
98.1 F 70 18 129/65 97
11/17/23 11:45 11/17/23 11:45 11/17/23 11:45 11/17/23 11:45 11/17/23 11:45
I&O
11/16/23 11/17/23 11/18/23
06:59 06:59 06:59
Intake Total 240 / 240
Balance 240 / 240
[2023-11-17 16:00] VITALS: BP 132/64
[2023-11-17] MEDS: LOVENOX 40 MG SC (16:06)
[2023-11-17 19:20] VITALS: BP 130/62
--- NOTE | 2023-11-17 20:32 | W.PN.ID1 ---
Date of Service
Date of Service: November 17, 2023
Today's Communication
hold systemic antibiotics at this time
monistat
Assessment / Plan
Surgical Site Infection
Early PJI
vulvovaginitis
- completed a 6 week course of vancomycin/meropenem, was successfully on ciprofloxacin/metronidazole for several months prior to initiation of ozempic - note long terminal half life of the drug
- stopped ciprofloxacin/metronidazole; we may retry suppression at a future date if patient wishes initially only with low dose ciprofloxacin
- note extremely limited choices for suppression for pseudomonas
- follow clinically
Vulvovaginitis
- monistat
- may improve with narrower spectrum
- probiotics
Chief Complaint
-: Other (PJI)
Subjective / Review of Systems
patient seen in clinic 11/15 for PJI on suppression with ongoing nausea and dry heaves, difficulty tolerating PO
symptoms began after starting ozempic about 4 weeks ago, she reportedly stopped it about 3 weeks ago
noted hypomagnesiam and hypokalemia with expected prolonged qtc
I instructed her to stop the metronidazole and ciprofloxacin and referred her here for assessment
nausea/vomiting reportedly improved
Vital Signs / Physical Exam
Vital Signs
Vital Signs
Temp Pulse Resp BP Pulse Ox
97.5 F 79 18 130/62 96
11/17/23 19:20 11/17/23 19:20 11/17/23 19:20 11/17/23 19:20 11/17/23 19:20
Physical Exam
Constitutional: No Acute Distress
Cardiovascular: Regular Rate
Pulmonary: Symmetric and Non Labored
Gastrointestinal: Non Distended
Skin: Dry
Neurological: Awake and Alert
Objective Data
Lab Data
Lab Results
11/17/23 09:19
11/17/23 09:19
Estimated Creat Clear 40 ml/min 11/17/23 09:19
Total Bilirubin 0.9 mg/dl (0.2-1.3) 11/16/23 14:02
AST 59 U/L (14-36) H 11/16/23 14:02
ALT 19 U/L (0-35) 11/16/23 14:02
Alkaline Phosphatase 63 U/L (38-126) 11/16/23 14:02
Most recent labs reviewed.
[2023-11-17] MEDS: NEURONTIN 300 MG PO (20:47)
[2023-11-17] MEDS: MONISTAT 7 VAGINAL CREAM 1 APPLIC VAG (22:09)
[2023-11-17] MEDS: DESYREL 100 MG PO (22:10)
[2023-11-17] MEDS: BENADRYL 25 MG PO (22:11)
[2023-11-17] MEDS: TUMS EX (EXTRA STRENGTH) CHEWABLE 1 TABLET PO (23:06)
[2023-11-17 23:10] VITALS: BP 119/53
[2023-11-18 00:04] VITALS: BP 119/53
[2023-11-18 03:39] VITALS: BP 131/75
[2023-11-18] MEDS: NSS with KCL 20 MEQ 1000 IV (05:41)
[2023-11-18 08:00] VITALS: BP 176/79
[2023-11-18 08:47] LABS: Blood Urea Nitrogen 9 mg/dl (7-17); Calcium 8.5 mg/dl (8.4-10.2); Carbon Dioxide 21 mmol/L (22-30); Chloride 116 mmol/L (98-107); Estimated Creatinine Clearance 44 ml/min; Glucose 79 mg/dl (70-99); Magnesium 1.8 mg/dl (1.6-2.3); Potassium 4.3 mmol/L (3.5-5.1); Sodium 141 mmol/L (135-145); eGFR 58.02
[2023-11-18] MEDS: PROTONIX IV 40 MG IV (08:52)
[2023-11-18] MEDS: RYTHMOL 150 MG PO (08:53)
[2023-11-18] MEDS: NSS (PRESERVATIVE FREE) 10 ML IV (08:53)
[2023-11-18] MEDS: ProAmatine PO (08:54)
[2023-11-18] MEDS: ZOLOFT 50 MG PO (08:54)
--- NOTE | 2023-11-18 08:54 | W.PN.HOSP.TC ---
Addendum entered and electronically signed by Misael Lima MD 11/18/23 15:13:
#Vulvovaginitis
Continue Monistat for 6 more days upon discharge, prescription sent
Original Note:
Today's Communication/Plan
-
Check C. difficile.
Imodium as needed if C. difficile negative.
Stable for discharge today.
Assessment / Plan
Assessment / Plan
HPI: 78-year-old female with a past medical history of right hip prosthetic joint infection status post right hip arthroplasty revision on 07/18/2023, paroxysmal atrial fibrillation not on anticoagulation, recurrent UTIs, hypertension, and anemia was
sent from ID office for persistent nausea and dry heaving. Patient completed a full course of IV antibiotics on 08/25/2023, and then transitioned to oral ciprofloxacin and Flagyl for suppression. She reports that around 09/17/2023, she started
Ozempic. Around that time, she noted that she was starting to have worsening nausea and dry heaving, with poor oral intake. She discontinued the Ozempic 3 weeks ago, but continues to have symptoms.
#Severe nausea and dry heaving
Resolved with stopping ciprofloxacin and Flagyl
ID suspects secondary to Ozempic, which has a long half-life
Resolved, tolerating a diet
Medically stable for discharge today
#History of right prosthetic hip infection
Status post right hip arthroplasty revision on 07/18/2023
Completed a full course of IV vancomycin/meropenem on 08/25/2023
Was on suppressive therapy with ciprofloxacin and Flagyl prior to starting ozempic
Appreciate ID input, keep off antibiotics
Follow-up with ID in the office in 4-6 weeks to determine when to reinitiate suppressive therapy with low-dose ciprofloxacin
#Prolonged QTc
Improved, monitor with daily EKGs, avoid QT prolonging agents
#Hypokalemia
Repleted and resolved
#Hypomagnesemia
Repleted and resolved
#Diarrhea
Check C. difficile.
Imodium as needed if C. difficile negative.
#Paroxysmal atrial fibrillation status post PVI
Not on anticoagulation, rate controlled propafenone
#History of orthostatic hypotension
Continue midodrine 2.5 mg twice a day
#History of breast cancer status post radiation
#History of lung cancer status post left lower lobectomy
DVT prophylaxis�subcu Lovenox
Full code
Physical Exam
General: No acute distress
HEENT: Normocephalic, Atraumatic, EOMI, MMM
Respiratory: Clear to Auscultation bilaterally
Cardiac: Normal S1/S2, Regular Rate and Rhythm
GI: Soft, Nontender, Nondistended, Normal Bowel Sounds
Extremities: No Clubbing, Cyanosis, or Edema
Neuro: Nonfocal/Grossly Intact
Psych: Calm, Cooperative
Derm: No Visible lesions
Anticipated Discharge: Today
Subjective/Interval History
-
Date of Service: November 18, 2023
Patient reports having diarrhea. No abdominal pain. Nausea resolved. She is tolerating her diet. No fever.
Objective Data
-
Labs:
Laboratory Results
11/18/23
08:17
Sodium 141
Potassium 4.3 D
Chloride 116 H
Carbon Dioxide 21 L
BUN 9
Creatinine 1.0
Glucose 79
Calcium 8.5
Vital Signs:
Vital Signs
Temp Pulse Resp BP Pulse Ox
97.3 F 79 18 131/75 97
11/18/23 03:39 11/18/23 03:39 11/18/23 03:39 11/18/23 03:39 11/18/23 03:39
I&O
11/17/23 11/18/23 11/19/23
06:59 06:59 06:59
Intake Total 240 / 240 3060 / 3060
Balance 240 / 240 3060 / 3060
--- NOTE | 2023-11-18 11:20 | W.DCSUMMARY ---
Discharge Summary
Discharge Data
Date of Admission: 11/16/23
Date of Discharge: 11/18/23
-
Pending Results: No
Hospital Course
Discharge diagnosis:
Intractable nausea, likely from Ozempic use in conjunction with antibiotics
Dehydration
Hypokalemia
Hypomagnesemia
Vulvovaginitis
Diarrhea
History of right prosthetic hip infection
Prolonged QTc interval
Paroxysmal atrial fibrillation not on anticoagulation
Consults: ID
Hospital course:
78-year-old female with a past medical history of right prosthetic hip infection status post IV antibiotics currently on suppressive ciprofloxacin/Flagyl, paroxysmal atrial fibrillation not on anticoagulation, orthostatic hypotension, breast cancer
status post radiation, and lung cancer status post left lower lobe lobectomy presented with an 8-week history of intractable nausea and dry heaving.
Patient was hospitalized at [facility] in July 2023 for a right prosthetic hip infection. She completed a full course of IV meropenem and vancomycin on 08/25/2023, then transitioned to suppressive ciprofloxacin and Flagyl. She started
Ozempic on 09/17/2023, and started having intractable nausea with dry heaving. She has lost 25 pounds in the last 8 weeks. Patient was seen by her infection doctor on the day of admission, who sent her to the emergency room. She has been off of
Ozempic for 3 weeks now.
Patient was found to be dehydrated, with severe hypokalemia and hypomagnesemia. Her antibiotics were discontinued. She received IV fluids, IV potassium, and IV magnesium. By the following day, her nausea resolved. She tolerated her diet. She
continued to receive electrolyte replacement, and her potassium/magnesium normalized.
Patient was found to have severe QTc prolongation. This is due to her electrolyte abnormalities. Her QTc improved on the day of discharge. She will be discharged on Phenergan instead of Zofran.
Patient was seen in conjunction with ID, who suspects Ozempic was the culprit of her symptoms. Patient had been on suppressive ciprofloxacin and Flagyl prior to starting Ozempic without any issues. ID recommends her staying off her antibiotics,
and following up in the office in 4-6 weeks for possible resumption of ciprofloxacin.
Patient also has vulvovaginitis, and is treated with Monistat.
Patient is medically stable for discharge. She needs to follow-up with her primary care doctor in 1 week, as well as ID in the office in 4-6 weeks.
Disposition: Home with home PT
Discharge planning: Required 39 minutes
Discharge Plan
-
Patient Disposition: Home with Home Care
Discharge Diagnosis/Procedures: Intractable nausea, dehydration, hypomagnesemia, hypokalemia, reaction from Ozempic versus antibiotics
Condition: Good
Diet: Low Fat and Low Cholesterol
Activity: As tolerated
Driving Restrictions: As prior to admission
Other Services: PT
Activity Restrictions/Additional Instructions:
The infection doctor thinks that you have intractable nausea with dry heaving from Ozempic use.
Permanently stay off of Ozempic.
The infection doctor recommends stopping your antibiotics at this time.
Follow-up with your primary care doctor in 1 week, and the infection doctor in 4-6 weeks.
Referrals:
Akbar Galeana MD [Family Provider] - in one week
Jocelyn Ariza MD [Active] - in four to six weeks
Prescriptions:
New
promethazine 25 mg Tablet
25 mg PO Q6HPRN PRN (Reason: n/v) Qty: 30 0RF
miconazole nitrate 2 % Cream
1 applic vaginal HS 6 Days Qty: 45 0RF
Continued
propafenone 150 MG tablet
150 mg PO BID
sertraline 50 MG tablet
50 mg PO BID
midodrine 2.5 mg Tablet
2.5 mg PO BID
trazodone 50 MG tablet
100 mg PO HSPRN PRN (Reason: sleep)
cranberry extract [Ellura] 200 mg Capsule
200 mg PO BID
gabapentin 300 mg Capsule
300 mg PO HS Qty: 30 0RF
diphenhydramine HCl [Benadryl] 25 mg Capsule
25 mg PO HS PRN (Reason: sleep)
nystatin 100,000 unit/gram Cream
1 applic TOPICAL BIDPRN PRN (Reason: vaginal area)
Discontinued
ciprofloxacin HCl 750 mg Tablet
750 mg PO BID
metronidazole 500 mg Tablet
500 mg PO BID
ondansetron 4 mg Tablet,Disintegrating
4 mg PO DAILY
Visbiome 112.5 billion cell Capsule
1 cap PO DAILY
Discharge Orders:
Discharge Patient (As Directed); Ordered 11/18/23
Ordered By: Misael Lima
Discharge Date and Time
Discharge Date/Time: 11/18/23 16:16
Print Language: TELUGU
--- NOTE | 2023-11-18 11:38 | CM ---
Patient for discharge today with [place], [place]
[facility] [place] [facility]
[address]
[place] [address]
PLAN: Discharge today with [facility]
fax - [phone]
--- NOTE | 2023-11-18 11:45 | CM ---
Addendum entered by Beena Winkler 11/18/23 12:17:
PLAN: Discharge today with [facility]
Fax - [phone]
Original Note:
IMM explained & signed. In chart
to transport home today.
--- NOTE | 2023-11-18 13:32 | PTCARENOTE ---
Patient has had 2 episodes of incontinence- both moderate- large amounts of diarrhea today. 1 immediately after breakfast and 1 now immediately after lunch . Hospitalist notified
[2023-11-18] MEDS: IMODIUM 2 MG PO (14:37)
--- NOTE | 2023-11-18 21:42 | W.PN.ID1 ---
Date of Service
Date of Service: November 18, 2023
Today's Communication
agree with discharge follow up 5-6 weeks
Assessment / Plan
Surgical Site Infection
Early PJI
vulvovaginitis
- completed a 6 week course of vancomycin/meropenem, was successfully on ciprofloxacin/metronidazole for several months prior to initiation of ozempic - note long terminal half life of the drug
- stopped ciprofloxacin/metronidazole; we may retry suppression at a future date if patient wishes initially only with low dose ciprofloxacin
- note extremely limited choices for suppression for pseudomonas
- follow clinically
Vulvovaginitis
- qtc remains prolonged even with corrected electrolytes - would not use oral fluconazol
- monistat x7 days
- may improve with stopping the systemic antibiotics
- probiotics - lactobacillus based
Chief Complaint
-: Other (PJI)
Subjective / Review of Systems
afebrile
no further nausea/vomiting
some loose stool
still with vaginitis
Vital Signs / Physical Exam
Vital Signs
Vital Signs
Temp Pulse Resp BP Pulse Ox
97.7 F 63 12 176/77 99
11/18/23 08:00 11/18/23 08:00 11/18/23 08:00 11/18/23 08:54 11/18/23 08:00
Physical Exam
Constitutional: No Acute Distress
Cardiovascular: Regular Rate and S1/S2; Negative Murmur or Rub
Pulmonary: Symmetric and Non Labored
Gastrointestinal: Non Tender and Non Distended
Skin: Warm and Dry
Neurological: Awake
Objective Data
Lab Data
Lab Results
11/17/23 09:19
11/18/23 08:17
Estimated Creat Clear 44 ml/min 11/18/23 08:17
Total Bilirubin 0.9 mg/dl (0.2-1.3) 11/16/23 14:02
AST 59 U/L (14-36) H 11/16/23 14:02
ALT 19 U/L (0-35) 11/16/23 14:02
Alkaline Phosphatase 63 U/L (38-126) 11/16/23 14:02
Most recent labs reviewed.
Micro Results:
11/18/23 13:46 C. difficile [facility] Antigen & Toxins - Final
Feces/Stool Negative for toxigenic C.difficile
Care Review
Plan reviewed with: Physician (Dr Vasquez)
== END 2023-11-18 16:16 | disposition home health service (06) | DRG 392 ==
LOC: 4 WEST ACU 17:09
PROVIDERS: Registered Nurse; ADMITTING PHYSICIAN Family Medicine; CONSULT PHYSICIAN Student in an Organized Health Care Education/Training Program; EMERGENCY PHYSICIAN Emergency Medicine; FAMILY PHYSICIAN Internal Medicine Geriatric Medicine
DX: R11.2 Nausea with vomiting, unspecified (principal); N17.9 Acute kidney failure, unspecified; F32.A Depression, unspecified; I10 Essential (primary) hypertension; E86.0 Dehydration; I48.0 Paroxysmal atrial fibrillation; E87.6 Hypokalemia; E83.42 Hypomagnesemia; N20.0 Calculus of kidney; N76.0 Acute vaginitis; N32.81 Overactive bladder; E78.00 Pure hypercholesterolemia, unspecified; I45.10 Unspecified right bundle-branch block; J98.4 Other disorders of lung; M51.26 Other intervertebral disc displacement, lumbar region; T84.51XD Infection and inflammatory reaction due to internal right hip prosthesis, subsequent encounter; Y79.2 Prosthetic and other implants, materials and accessory orthopedic devices associated with adverse incidents; R19.7 Diarrhea, unspecified; T38.3X5A Adverse effect of insulin and oral hypoglycemic [antidiabetic] drugs, initial encounter; R94.31 Abnormal electrocardiogram [ECG] [EKG]; Z79.2 Long term (current) use of antibiotics; Z79.899 Other long term (current) drug therapy; Z87.891 Personal history of nicotine dependence; Z88.1 Allergy status to other antibiotic agents; Z85.3 Personal history of malignant neoplasm of breast; Z92.3 Personal history of irradiation; Z85.118 Personal history of other malignant neoplasm of bronchus and lung; Z90.2 Acquired absence of lung [part of]; Z98.84 Bariatric surgery status; Z86.79 Personal history of other diseases of the circulatory system; Z87.440 Personal history of urinary (tract) infections; Z96.643 Presence of artificial hip joint, bilateral; Z96.659 Presence of unspecified artificial knee joint
CPT/HCPCS: 74022; 80048; 80053; 82962; 83036; 83690; 83735; 84100; 85025; 85027; 87324; 87449; 93005; 96365; 96366; 96375; 97162; 99285

== ENCOUNTER → 2023-11-26 16:08 | Outpatient (REF) | payer MEDICARE, SELFPAY ==
[2023-11-26 16:48] LABS: % Basophils 0.5 % (0-2); % Eosinophils 2.1 % (0-6); % Immature Granulocytes 0.2 % (0-0.5); % Lymphocytes 18.1 % (20.5-51.1); % Monocytes 6.8 % (1.7-9.3); % Neutrophils 72.3 % (42.2-75.2); Absolute Eosinophils 0.1 10^3/uL (0-0.7); Absolute Lymphocytes 1.1 10^3/uL (1.2-3.4); Absolute Monocytes 0.4 10^3/uL (0.1-0.6); Absolute Neutrophils 4.4 10^3/uL (1.4-6.5); Hematocrit 33.1 % (37.0-47.0); Mean Corp Hgb Conc. 33.2 g/dL (33.0-37.0); Mean Corpuscular Hgb 28.9 pg (27.0-31.0); Mean Corpuscular Volume 87.1 fL (81.0-99.0); Mean Platelet Volume 9.3 fL (7.4-10.4); Nucleated Red Blood Cells % 0 %; Platelet Count 236 10^3/uL (130-400); White Blood Cell Count 6.1 10^3/uL (4.8-10.8)
[2023-11-26 17:03] LABS: ALT (SGPT) 20 U/L (0-35); AST (SGOT) 32 U/L (14-36); Albumin 3.6 g/dl (3.5-5.0); Alkaline Phosphatase 64 U/L (38-126); Blood Urea Nitrogen 13 mg/dl (7-17); Calcium 8.6 mg/dl (8.4-10.2); Carbon Dioxide 31 mmol/L (22-30); Chloride 103 mmol/L (98-107); Glucose 144 mg/dl (70-99); Magnesium 1.6 mg/dl (1.6-2.3); Potassium 3.7 mmol/L (3.5-5.1); Sodium 142 mmol/L (135-145); Total Bilirubin 0.3 mg/dl (0.2-1.3); Total Protein 5.8 g/dl (6.3-8.2); eGFR > 60.00
[2023-11-26 17:33] LABS: TSH Reflex To Free T4 3.59 uIU/ml (0.47-4.68)
== END ==
LOC: REG 16:08
PROVIDERS: ATTENDING PHYSICIAN Nurse Practitioner Family; FAMILY PHYSICIAN Internal Medicine Geriatric Medicine
DX: Z09 Encounter for follow-up examination after completed treatment for conditions other than malignant neoplasm (principal); E87.6 Hypokalemia; E83.42 Hypomagnesemia
CPT/HCPCS: 36415; 80053; 83735; 84443; 85025; 93005

== ENCOUNTER → 2024-01-05 16:45 | Outpatient (REF) | payer MEDICARE, SELFPAY ==
[2024-01-05 17:54] LABS: % Basophils 0.4 % (0-2); % Eosinophils 0.5 % (0-6); % Immature Granulocytes 0.3 % (0-0.5); % Lymphocytes 7.1 % (20.5-51.1); % Monocytes 3.6 % (1.7-9.3); % Neutrophils 88.1 % (42.2-75.2); Absolute Basophils 0.1 10^3/uL (0-0.2); Absolute Eosinophils 0.1 10^3/uL (0-0.7); Absolute Monocytes 0.5 10^3/uL (0.1-0.6); Hematocrit 36.6 % (37.0-47.0); Hemoglobin 12.3 g/dL (12.0-16.0); Mean Corp Hgb Conc. 33.6 g/dL (33.0-37.0); Mean Corpuscular Hgb 31.1 pg (27.0-31.0); Mean Corpuscular Volume 92.4 fL (81.0-99.0); Mean Platelet Volume 9.6 fL (7.4-10.4); Nucleated Red Blood Cells % 0 %; Platelet Count 291 10^3/uL (130-400); Red Blood Cell Count 3.96 10^6/uL (4.20-5.40); Red Cell Dist. Width 14.8 % (11.5-14.5); White Blood Cell Count 13.6 10^3/uL (4.8-10.8)
[2024-01-05 18:14] LABS: Erythrocyte Sed Rate 18 mm/hour (0-20); NT-proBNP 239 pg/ml
[2024-01-05 18:15] LABS: ALT (SGPT) 16 U/L (0-35); AST (SGOT) 26 U/L (14-36); Albumin 4.5 g/dl (3.5-5.0); Alkaline Phosphatase 95 U/L (38-126); Blood Urea Nitrogen 28 mg/dl (7-17); Calcium 9.2 mg/dl (8.4-10.2); Carbon Dioxide 30 mmol/L (22-30); Chloride 99 mmol/L (98-107); Glucose 148 mg/dl (70-99); Magnesium 1.8 mg/dl (1.6-2.3); Potassium 3.6 mmol/L (3.5-5.1); Sodium 140 mmol/L (135-145); Total Bilirubin 0.5 mg/dl (0.2-1.3); Total Protein 6.6 g/dl (6.3-8.2); eGFR > 60.00
[2024-01-05 18:17] LABS: C-Reactive Protein < 5.00 mg/L (0.0-10.00)
== END ==
LOC: REG 16:45
PROVIDERS: ATTENDING PHYSICIAN Student in an Organized Health Care Education/Training Program; FAMILY PHYSICIAN Internal Medicine Geriatric Medicine; REFERRING PHYSICIAN Nurse Practitioner Family
DX: T84.50XD Infection and inflammatory reaction due to unspecified internal joint prosthesis, subsequent encounter (principal); Z96.641 Presence of right artificial hip joint; R53.83 Other fatigue; E87.6 Hypokalemia; E83.42 Hypomagnesemia; I10 Essential (primary) hypertension; I48.0 Paroxysmal atrial fibrillation; R60.0 Localized edema
CPT/HCPCS: 36415; 80053; 83735; 83880; 85025; 85652; 86140

== ENCOUNTER → 2024-01-06 08:25 | Outpatient (REF) | payer MEDICARE, SELFPAY ==
[2024-01-06 10:05] LABS: Urine Albumin Negative (Neg - Trace); Urine Bilirubin Negative (Negative); Urine Character Slightly Cloudy (Clear); Urine Color Amber; Urine Glucose Negative (Negative); Urine Ketone Negative (Negative); Urine Leukocyte 2+ (Negative); Urine Nitrite Positive (Negative); Urine Occult Blood Negative (Negative); Urine Specific Gravity 1.015 (<1.030); Urine Urobilinogen Negative (Neg - 1+)
[2024-01-06 10:30] LABS: Urine Bacteria Many (Negative)
[2024-01-06 10:31] LABS: Urine Red Blood Cell 0-2 /HPF (0-2); Urine White Cell 40-50 /HPF (0-5)
== END ==
LOC: REG 08:25
PROVIDERS: ATTENDING PHYSICIAN Nurse Practitioner Family
DX: R53.83 Other fatigue (principal); E87.6 Hypokalemia; E83.42 Hypomagnesemia; I48.0 Paroxysmal atrial fibrillation
CPT/HCPCS: 36415; 81003; 81015; 87077; 87086; 87186

== ENCOUNTER → 2024-01-22 14:47 | Outpatient (REF) | payer MEDICARE, SELFPAY | LOC: WDC 14:47 | PROVIDERS: ATTENDING PHYSICIAN Internal Medicine Geriatric Medicine | DX: Z12.31 Encounter for screening mammogram for malignant neoplasm of breast (principal) | CPT/HCPCS: 77063; 77067 ==

== ENCOUNTER → 2024-02-05 10:41 | Outpatient (REF) | payer MEDICARE, SELFPAY ==
[2024-02-05 11:10] LABS: Hematocrit 36.5 % (37.0-47.0); Hemoglobin 12.5 g/dL (12.0-16.0); Mean Corp Hgb Conc. 34.2 g/dL (33.0-37.0); Mean Corpuscular Hgb 29.8 pg (27.0-31.0); Mean Corpuscular Volume 86.9 fL (81.0-99.0); Platelet Count 297 10^3/uL (130-400); Red Cell Dist. Width 13.2 % (11.5-14.5); White Blood Cell Count 6.3 10^3/uL (4.8-10.8)
[2024-02-05 11:25] LABS: Erythrocyte Sed Rate 19 mm/hour (0-20)
[2024-02-05 11:41] LABS: Blood Urea Nitrogen 16 mg/dl (7-17); Calcium 9.3 mg/dl (8.4-10.2); Carbon Dioxide 32 mmol/L (22-30); Chloride 101 mmol/L (98-107); Glucose 86 mg/dl (70-99); Potassium 3.5 mmol/L (3.5-5.1); Sodium 142 mmol/L (135-145); eGFR > 60.00
[2024-02-05 11:45] LABS: C-Reactive Protein < 5.00 mg/L (0.0-10.00)
== END ==
LOC: REG 10:41
PROVIDERS: ATTENDING PHYSICIAN Student in an Organized Health Care Education/Training Program; FAMILY PHYSICIAN Internal Medicine Geriatric Medicine; OTHER PHYSICIAN Orthopaedic Surgery; REFERRING PHYSICIAN Internal Medicine Cardiovascular Disease
DX: Z96.641 Presence of right artificial hip joint (principal); T84.50XD Infection and inflammatory reaction due to unspecified internal joint prosthesis, subsequent encounter
CPT/HCPCS: 36415; 80048; 85027; 85652; 86140

== ENCOUNTER 2024-04-04 13:53 | Outpatient (RCR) | payer MEDICARE, SELFPAY | END 2024-04-04 23:59 | disposition home or self-care (01) | LOC: RPT 13:53 | PROVIDERS: ATTENDING PHYSICIAN Orthopaedic Surgery; FAMILY PHYSICIAN Internal Medicine Geriatric Medicine | DX: M25.551 Pain in right hip (principal); M62.50 Muscle wasting and atrophy, not elsewhere classified, unspecified site; Z73.6 Limitation of activities due to disability; R26.89 Other abnormalities of gait and mobility; R26.2 Difficulty in walking, not elsewhere classified | CPT/HCPCS: 97010; 97110; 97163; 97530 ==

== ENCOUNTER 2024-04-14 14:05 | Outpatient (RCR) | payer MEDICARE, SELFPAY | END 2024-04-19 12:19 | disposition home or self-care (01) | LOC: RPT 14:05 | PROVIDERS: ATTENDING PHYSICIAN Orthopaedic Surgery; FAMILY PHYSICIAN Internal Medicine Geriatric Medicine | DX: M25.551 Pain in right hip (principal); M62.50 Muscle wasting and atrophy, not elsewhere classified, unspecified site; Z73.6 Limitation of activities due to disability; R26.89 Other abnormalities of gait and mobility; R26.2 Difficulty in walking, not elsewhere classified | CPT/HCPCS: 97110; 97112; 97140; 97530 ==

== ENCOUNTER 2024-04-19 05:16 | Emergency (ER) | payer MEDICARE, SELFPAY ==
[2024-04-19 05:19] VITALS: BP 160/69
[2024-04-19 05:20] VITALS: BP 160/69
--- NOTE | 2024-04-19 06:12 | ED.GENMED ---
History of Present Illness
General
Chief Complaint: Fall
Time Seen by Provider: 04/19/24 06:12
History of Present Illness
History of Present Illness:
TIME OF INITIAL ENCOUNTER: 6:20 AM
HPI: The patient came in by ambulance from home after a fall (was walking faster than normal). She primarily complains of left groin and did strike her head. She has a little bit of neck discomfort which she relates to bracing herself. She
describes it as a muscular kind of pain. She also has a skin tear to the left upper extremity. She was able to bear weight but had trouble getting up initially
EXAM:
GENERAL: Well appearing in mild distress
CERVICAL SPINE: No midline c-spine tenderness with very good AROM, however she does have some tenderness to the bilateral paraspinal musculature as well as the right trapezius
HEAD: No evidence of craniofacial trauma
CHEST: No chest wall tenderness, normal heart sounds
LUNGS: Equal lung sounds, no respiratory distress
ABDOMEN: No abdominal tenderness, no peritoneal signs
EXTREMITIES: Decreased active range of motion into flexion at both hips, no tenderness, skin tear noted to the left forearm, some discomfort to palpation in the left inguinal region
NEURO: Good strength all extremities, appropriate mental status, normal speech/language
NUMBER AND COMPLEXITY OF PROBLEMS ADDRESSED AT THE ENCOUNTER
� Chronic conditions affecting care: Lung cancer, A-fib, has had gastric bypass anemia, anxiety
� Acute Exacerbation and/or Progression of Chronic Illness: This is an acute problem
� Differential Diagnosis includes: Pelvis fracture, hip fracture, hip dislocation, intracranial hemorrhage,
AMOUNT AND/OR COMPLEXITY OF DATA TO BE REVIEWED AND ANALYZED
� I performed an independent evaluation of and my interpretation is:
EKG:
CT: I personally viewed CT of the head which shows no acute abnormality
X-rays: I personally reviewed x-rays of the left hip and shows a pelvis fracture, hardware from prior surgery noted
Laboratory Studies:
Other:
� Review of other/old records: I reviewed records, the patient has been receiving physical therapy related to right hip pain recently
� Clinical information was obtained by an independent historian: I spoke to at bedside
� Prescriptions/Medications Considered but not given:
� Further testing considered but not performed:
RISK OF COMPLICATIONS AND/OR MORBIDITY OR MORTALITY OF PATIENT MANAGEMENT
� Social determinants of health affecting care: Lives at home, planning to travel for the next 4 months starting in 2 days
� Discussion with other providers: Notified Dr. Tomas, pain control
� Escalation of care including admission/observation vs risk of discharge considered: Although radiologist interpreted the x-ray as chronic finding, I suspect this is an acute problem as she has had no other pelvis fracture in
the past and this is the first time that she has had pain at the left groin consistent with a pelvis fracture.
ANY OTHER UPDATES:
The patient was seen by physical therapy and was given a walker. They also recommended home physical therapy�seen by Nette Langford arranging for home PT.
Past History
Past History
ED Past Medical History: Arrthythmia, Cancer, HTN and Hypercholesterolemia
ED Past Surgical History: Appendectomy (gastric bypass.), Orthopedic and Other
Social History
Tobacco: Non-smoker
Alcohol: None
Drug: None
Personal:
Living: with family
Phy Exam
Physical Exam
Physical Exam:
See HPI
Course
Orders/Labs/Results
Orders:
Orders
04/19/24 05:34
CT Head W/o Iv Contrast Urgent
Comment:
Reason For Exam: fall
Hip, Left 2-3 Views [CR Hip - LT w/wo Pel 2-3 Vw*] Urgent
Comment:
Reason For Exam: fall
Include a pelvis x-ray?: Yes
04/19/24 06:53
Hydrocodone 5/APAP 325 [[place] 5/325] 1 tablet PO NOW STA
Tetanus/Diphth/Acelpertussis [Adacel] 0.5 ml IM .ONCE ONE
PT Consult [Pt Eval And Treat] Urgent
Treatment: pelvis fracture
Activity Level: Ambulate
04/19/24 08:35
Case Management Consult ONCE
Case Management Consult: Other
Vital Signs
Initial and Last Documented VS:
Initial Vital Signs
Temp Pulse Resp BP Pulse Ox
36.3 C 55 18 160/69 98
04/19/24 05:19 04/19/24 05:19 04/19/24 05:19 04/19/24 05:19 04/19/24 05:19
Last Documented Vital Signs
Temp Pulse Resp BP Pulse Ox
36.3 C 62 18 160/69 100
04/19/24 05:19 04/19/24 08:04 04/19/24 06:31 04/19/24 05:20 04/19/24 06:30
*Critical Care Note
Total Time (30-74mins, 75-104mins- exclusive of procedures): Not Applicable
ED Attending Note
-
Portions of this chart may have been created with voice recognition software.� Occasional wrong word or��sound alike� substitutions may have occurred due to the inherent limitations of voice recognition software.
Discharge Plan
Departure
Patient Disposition: Home (Routine Discharge)
Date of Disposition: 04/19/24
Time of Disposition: 08:40
Patient with high blood pressure during this ER visit?: Yes
Discharge Problem:
Fractured pelvis
Instructions: Pelvic fracture, BLOOD PRESSURE
Prescriptions:
New
hydrocodone-acetaminophen 5-325 mg tablet
1 - 2 tab PO Q8H PRN (Reason: Pain) Qty: 14 0RF
No Action
propafenone 150 MG tablet
150 mg PO BID
sertraline 50 MG tablet
50 mg PO BID
midodrine 2.5 mg Tablet
2.5 mg PO BID
trazodone 50 MG tablet
100 mg PO HSPRN PRN (Reason: sleep)
cranberry extract [Ellura] 200 mg Capsule
200 mg PO BID
gabapentin 300 mg Capsule
300 mg PO HS Qty: 30 0RF
diphenhydramine HCl [Benadryl] 25 mg Capsule
25 mg PO HS PRN (Reason: sleep)
nystatin 100,000 unit/gram Cream
1 applic TOPICAL BIDPRN PRN (Reason: vaginal area)
promethazine 25 mg Tablet
25 mg PO Q6HPRN PRN (Reason: n/v) Qty: 30 0RF
miconazole nitrate 2 % Cream
1 applic vaginal HS 6 Days Qty: 45 0RF
Referrals:
Akbar Galeana MD [Family Provider] -
Magdi Lewis MD [Active] - Follow up in 5-7 days
Activity Restrictions/Additional Instructions:
I notified Dr. Lewis. He recommends that you be weight-bear as tolerated meaning that you are able to put weight on the left lower extremity as you can tolerate it. Follow-up with your primary care doctor as well. I am sending a prescription
for Vicodin to your pharmacy. If you take Vicodin, I recommend that you take something like MiraLAX to help prevent constipation. Return here if worse or other concerns. Nette from care management is arranging for home physical therapy.
Interventions
Interventions:
*Risk Screen - Suicide Last Done: 04/19/24 05:19
*General Assessment Last Done: 04/19/24 05:19
*Neglect/Abuse Screening Last Done: 04/19/24 05:19
ED- Fall Risk Assessment Last Done: 04/19/24 05:28
*ED COVID-19 Vaccine History Last Done: 04/19/24 05:19
ED-Musculoskeletal Assessment Last Done: 04/19/24 05:28
ED- Neurological Assessment Last Done: 04/19/24 05:28
ED-Skin Assessment Last Done: 04/19/24 05:28
Discharge Date and Time
Print Language: L[place]
[2024-04-19 07:00] VITALS: BP 158/57
[2024-04-19] MEDS: NORCO 5/325 1 TABLET PO ×2 (07:08→09:26)
[2024-04-19 08:00] VITALS: BP 149/47
[2024-04-19 08:09] VITALS: BP 163/56
[2024-04-19 08:41] VITALS: BP 168/70
--- NOTE | 2024-04-19 08:55 | CM ---
Patient is agreeable to referral to [facility].
Referral sent via [facility].
[2024-04-19] MEDS: ADACEL 0.5 ML IM (09:26)
== END 2024-04-19 09:56 | disposition home or self-care (01) ==
LOC: EMR 05:16
PROVIDERS: EMERGENCY PHYSICIAN Emergency Medicine; FAMILY PHYSICIAN Internal Medicine Geriatric Medicine
DX: S32.9XXA Fracture of unspecified parts of lumbosacral spine and pelvis, initial encounter for closed fracture (principal); S41.112A Laceration without foreign body of left upper arm, initial encounter; W19.XXXA Unspecified fall, initial encounter; Y93.01 Activity, walking, marching and hiking; Z23 Encounter for immunization; I10 Essential (primary) hypertension; E78.00 Pure hypercholesterolemia, unspecified; Z90.49 Acquired absence of other specified parts of digestive tract; Z98.84 Bariatric surgery status
CPT/HCPCS: 99284; 90471; 70450; 73502; 90715

== ENCOUNTER → 2024-08-12 11:23 | Outpatient (REF) | payer MEDICARE, SELFPAY ==
[2024-08-12 11:55] LABS: % Basophils 0.6 % (0-2); % Eosinophils 1.2 % (0-6); % Immature Granulocytes 0.2 % (0-0.5); % Lymphocytes 17.8 % (20.5-51.1); % Monocytes 6.3 % (1.7-9.3); % Neutrophils 73.9 % (42.2-75.2); Absolute Eosinophils 0.1 10^3/uL (0-0.7); Absolute Lymphocytes 1.2 10^3/uL (1.2-3.4); Absolute Monocytes 0.4 10^3/uL (0.1-0.6); Absolute Neutrophils 4.8 10^3/uL (1.4-6.5); Hematocrit 37.1 % (37.0-47.0); Hemoglobin 12.5 g/dL (12.0-16.0); Mean Corp Hgb Conc. 33.7 g/dL (33.0-37.0); Mean Corpuscular Hgb 28.9 pg (27.0-31.0); Mean Corpuscular Volume 85.9 fL (81.0-99.0); Nucleated Red Blood Cells % 0 %; Platelet Count 266 10^3/uL (130-400); Red Blood Cell Count 4.32 10^6/uL (4.20-5.40); Red Cell Dist. Width 14.5 % (11.5-14.5); White Blood Cell Count 6.5 10^3/uL (4.8-10.8)
[2024-08-12 12:24] LABS: ALT (SGPT) 20 U/L (0-35); AST (SGOT) 32 U/L (14-36); Alkaline Phosphatase 88 U/L (38-126); Blood Urea Nitrogen 19 mg/dl (7-17); Calcium 9.1 mg/dl (8.4-10.2); Carbon Dioxide 32 mmol/L (22-30); Chloride 102 mmol/L (98-107); Glucose 91 mg/dl (70-99); HDL Cholesterol 66 mg/dl; LDL Cholesterol, Calculated 131 mg/dl; Magnesium 1.7 mg/dl (1.6-2.3); Potassium 3.8 mmol/L (3.5-5.1); Sodium 141 mmol/L (135-145); Total Bilirubin 0.7 mg/dl (0.2-1.3); Total Cholesterol 217 mg/dl (50-199); Total Protein 6.6 g/dl (6.3-8.2); Triglyceride 104 mg/dl (10-149); Very Low Density Lipoprotein 20 mg/dl (0-30); eGFR > 60.00
[2024-08-12 12:50] LABS: TSH Reflex To Free T4 5.28 uIU/ml (0.47-4.68)
[2024-08-12 13:20] LABS: Free T4 0.96 ng/dl (0.78-2.19)
== END ==
LOC: REG 11:23
PROVIDERS: ATTENDING PHYSICIAN Student in an Organized Health Care Education/Training Program; FAMILY PHYSICIAN Nurse Practitioner Family
DX: T84.50XD Infection and inflammatory reaction due to unspecified internal joint prosthesis, subsequent encounter (principal); R53.83 Other fatigue; Z85.048 Personal history of other malignant neoplasm of rectum, rectosigmoid junction, and anus; I10 Essential (primary) hypertension; I48.0 Paroxysmal atrial fibrillation; Z01.89 Encounter for other specified special examinations; E87.6 Hypokalemia; E83.42 Hypomagnesemia; N32.81 Overactive bladder; Z85.3 Personal history of malignant neoplasm of breast; R60.0 Localized edema; Z91.81 History of falling; R29.6 Repeated falls
CPT/HCPCS: 36415; 80053; 80061; 83735; 84439; 84443; 85025

== ENCOUNTER 2024-09-01 14:22 | Outpatient (RCR) | payer MEDICARE, SELFPAY | END 2024-09-01 23:59 | disposition home or self-care (01) | LOC: RPT 14:22 | PROVIDERS: ATTENDING PHYSICIAN Physician Assistant Medical; FAMILY PHYSICIAN Internal Medicine Geriatric Medicine | DX: S32.89XD Fracture of other parts of pelvis, subsequent encounter for fracture with routine healing (principal); M40.04 Postural kyphosis, thoracic region; Z96.641 Presence of right artificial hip joint; Z73.6 Limitation of activities due to disability; R26.2 Difficulty in walking, not elsewhere classified; Z96.642 Presence of left artificial hip joint; M62.81 Muscle weakness (generalized); W18.39XD Other fall on same level, subsequent encounter; Z96.643 Presence of artificial hip joint, bilateral | CPT/HCPCS: 97110; 97163; 97530 ==

== ENCOUNTER 2024-09-28 14:14 | Outpatient (RCR) | payer MEDICARE, SELFPAY | END 2024-09-28 23:59 | disposition home or self-care (01) | LOC: RPT 14:14 | PROVIDERS: ATTENDING PHYSICIAN Physician Assistant Medical; FAMILY PHYSICIAN Internal Medicine Geriatric Medicine | DX: S32.89XD Fracture of other parts of pelvis, subsequent encounter for fracture with routine healing (principal); M40.04 Postural kyphosis, thoracic region; Z73.6 Limitation of activities due to disability; R26.2 Difficulty in walking, not elsewhere classified; M62.81 Muscle weakness (generalized); W18.39XD Other fall on same level, subsequent encounter; Z96.643 Presence of artificial hip joint, bilateral | CPT/HCPCS: 97110; 97112; 97530 ==

== ENCOUNTER → 2024-09-29 08:51 | Outpatient (REF) | payer MEDICARE, SELFPAY | LOC: RAD 08:51 | PROVIDERS: ATTENDING PHYSICIAN Student in an Organized Health Care Education/Training Program; FAMILY PHYSICIAN Internal Medicine Geriatric Medicine | DX: I87.2 Venous insufficiency (chronic) (peripheral) (principal) | CPT/HCPCS: 93970 ==

== ENCOUNTER → 2024-12-18 13:08 | Outpatient (REF) | payer MEDICARE, SELFPAY ==
[2024-12-18 13:50] LABS: Hematocrit 37.2 % (37.0-47.0); Hemoglobin 11.8 g/dL (12.0-16.0); Mean Corp Hgb Conc. 31.7 g/dL (33.0-37.0); Mean Corpuscular Volume 82.5 fL (81.0-99.0); Nucleated Red Blood Cells % 0 %; Platelet Count 303 10^3/uL (130-400); Red Cell Dist. Width 14.7 % (11.5-14.5)
[2024-12-18 14:50] LABS: ALT (SGPT) 16 U/L (0-35); AST (SGOT) 22 U/L (14-36); Albumin 4.1 g/dl (3.5-5.0); Alkaline Phosphatase 101 U/L (38-126); Blood Urea Nitrogen 18 mg/dl (7-17); Calcium 9.2 mg/dl (8.4-10.2); Carbon Dioxide 27 mmol/L (22-30); Chloride 106 mmol/L (98-107); Glucose 94 mg/dl (70-99); Potassium 4.1 mmol/L (3.5-5.1); Sodium 139 mmol/L (135-145); Total Protein 6.6 g/dl (6.3-8.2); eGFR > 60.00
== END ==
LOC: RCS 13:08
PROVIDERS: ATTENDING PHYSICIAN Nurse Practitioner Family
DX: R55 Syncope and collapse (principal); R53.83 Other fatigue
CPT/HCPCS: 36415; 80053; 84439; 84443; 85025; 93225; 93226

== ENCOUNTER → 2025-02-07 09:27 | Outpatient (REF) | payer MEDICARE, SELFPAY ==
[2025-02-07 17:26] LABS: Vitamin D, 25-OH*** 48.2 ng/mL (30-80)
[2025-02-07 17:59] LABS: Vitamin B12 237 pg/ml (239-931)
== END ==
LOC: DHVS 09:27
PROVIDERS: ATTENDING PHYSICIAN Nurse Practitioner; FAMILY PHYSICIAN Internal Medicine Geriatric Medicine; OTHER PHYSICIAN Nurse Practitioner Family
DX: I10 Essential (primary) hypertension (principal); R42 Dizziness and giddiness; E03.8 Other specified hypothyroidism; R53.83 Other fatigue; E55.9 Vitamin D deficiency, unspecified; I77.89 Other specified disorders of arteries and arterioles; E83.42 Hypomagnesemia
CPT/HCPCS: 36415; 82306; 82607; 84439; 84443; 93880

== ENCOUNTER 2025-04-04 12:34 | Outpatient (RCR) | payer MEDICARE, SELFPAY | END 2025-04-04 23:59 | disposition home or self-care (01) | LOC: RPT 12:34 | PROVIDERS: ATTENDING PHYSICIAN Student in an Organized Health Care Education/Training Program; FAMILY PHYSICIAN Internal Medicine Geriatric Medicine | DX: M79.671 Pain in right foot (principal); M79.672 Pain in left foot; Z73.6 Limitation of activities due to disability; R26.89 Other abnormalities of gait and mobility; M25.551 Pain in right hip; M54.9 Dorsalgia, unspecified; W17.89XD Other fall from one level to another, subsequent encounter; Z87.820 Personal history of traumatic brain injury | CPT/HCPCS: 97110; 97112; 97162; 97530; 97535 ==